=== PATIENT | male | born 1960 | race Caucasian/White ===

== ENCOUNTER → 2018-10-22 22:15 | Outpatient (CLI) | payer OTHER, SELFPAY ==
[2018-10-22 17:38] VITALS: BMI 37.0
[2018-10-22 22:34] LABS: Absolute Lymphocyte Count 2.35 X10^3/ul (0.83-4.51); Absolute Neutrophil Count 4.9 X10^3/uL (2.0-7.7); Basophil# 0.02 X10^3/uL; Basophil% 0.3 % (0-1); Eosinophil# 0.22 X10^3/uL; Eosinophils% 2.8 % (0-5); Hematocrit 44.7 % (40-54); Hemoglobin 15.2 g/dl (13.0-16.5); Lymphocyte # 2.35 X10^3/ul (4.0); Lymphocyte % 29.6 % (19-41); Mean Corpuscular Hgb 29.7 pg (27.0-32.0); Mean Corpuscular Volume 87.5 fL (80-94); Mean Platelet Vol. 9.6 fl (6.2-12.0); Monocyte# 0.46 X10^3/uL; Monocyte% 5.8 % (0-10); Neutrophil # 4.88 X10^3/uL (2.7-7.7); Neutrophil % 61.2 % (47-70); Platelet Count 222 K/mm3 (150-450); RBC Distribution Width CV 12.4 % (11.6-14.6); RBC Distribution Width SD 39.7 fl (35.1-43.9); Red Blood Count 5.11 M/mm3 (4.6-6.2)
[2018-10-22 22:35] LABS: POSITIVE COUNT NO; POSITIVE DIFFERENTIAL NO; POSITIVE MORPHOLOGY NO
[2018-10-22 22:55] LABS: AST(SGOT) 28 U/L (15-37); Alanine Aminotransfer ALT/SGPT 49 U/L (16-61); Albumin, Serum 3.9 g/dL (3.2-5.0); Alkaline Phosphatase 87 U/L (45-117); Anion Gap 8 (5-15); BUN 17 mg/dL (7-18); BUN/Creat Ratio 16.5 RATIO (10-20); Calcium,Total 8.3 mg/dL (8.5-10.1); Chloride 106 mmol/L (98-107); Cholesterol 176 mg/dL (200); Creatinine, Serum 1.03 mg/dL (0.70-1.30); EST Glomerular Filtration Rate 79 mL/min (>60); Est Glom Filt Rate - Afr Amer 96 mL/min (>60); Globulin 3.8 g/dL (2.2-4.2); Glucose 111 mg/dL (74-106); High Density Lipoprotein 43 mg/dL; Protein, Total 7.7 g/dL (6.4-8.2); Sodium Level 137 mmol/L (136-145); Triglycerides 262 mg/dL; Very Low Density Lipoprotein 52 mg/dL (5-40)
== END ==
PROVIDERS: Referring Provider Nurse Practitioner; Visit Provider Nurse Practitioner
DX: I10 Essential (primary) hypertension (principal); I49.9 Cardiac arrhythmia, unspecified; R73.9 Hyperglycemia, unspecified
CPT/HCPCS: 80053; 80061; 84443; 85025

== ENCOUNTER → 2018-11-18 06:58 | Outpatient (CLI) | payer SELFPAY ==
[2018-10-30 08:48] VITALS: BMI 35.2
[2018-11-13 16:49] VITALS: BMI 35.0
--- NOTE | 2018-11-18 07:13 | ECHOCS_ITS ---
Reason For Study: Arrhythmia Procedure This was a 2D Doppler, Color Flow transthoracic echocardiogram. Contrast injection was performed. Exam performed in department. Left Ventricle Normal LV size. Left ventricular systolic function is normal. The estimated ejection fraction is 60 %. Stage 1 diastolic dysfunction. No regional wall motion abnormalities noted. Right Ventricle Normal RV size. Normal systolic function. Atria Normal left atrium. Normal right atrium. Mitral Valve Normal mitral valve. Tricuspid Valve Normal tricuspid valve. Mild (1+) tricuspid valve insufficiency. Pulmonary artery systolic pressure is 26 mmHg. Aortic Valve Trisinus/trileaflet aortic valve. Pulmonic Valve Normal pulmonic valve. Great Vessels Normal aortic root. The pulmonary artery is normal size. Normal inferior vena cava. Pericardium/Pleural No pericardial effusion. Medication Definity0.3ml given slow IV push to enhance endocardial definition. MMode/2D Measurements & Calculations LVIDd: 4.7 cm IVSd: 1.2 cm Ao root diam: 3.9 cm LVIDs: 3.1 cm LVPWd: 1.1 cm RVDd: 4.9 cm FS: 33.1 % LAV(MOD-bp): 64.0 ml LVAd ap4: 34.9 cm2 SV(MOD-sp4): 76.8 ml LAV(MOD-bp) Indexed: 25.3 ml/m2 EDV(MOD-sp4): 123.4 ml LAV(MOD-sp2): 68.4 ml EDV(sp4-el): 128.7 ml LAV(MOD-sp4): 59.9 ml LVAs ap4: 19.8 cm2 ESV(MOD-sp4): 46.6 ml ESV(sp4-el): 45.7 ml EF(MOD-sp4): 62.2 % EF(sp4-el): 64.5 % SV(sp4-el): 83.0 ml LA A4 area: 21.0 cm2 LA dimension(2D): 4.9 cm RA A4 area: 14.8 cm2 Doppler Measurements & Calculations MV E max ludwin: 66.6 cm/sec Lat Peak E' Ludwin: 11.4 cm/sec Med Peak E' Ludwin: 7.4 cm/sec MV A max ludwin: 77.2 cm/sec E/E' lat: 5.9 E/E' med: 9.0 MV E/A: 0.86 Ao V2 max: 133.6 cm/sec LV V1 max: 119.7 cm/sec PA V2 max: 115.5 cm/sec Ao max P.1 mmHg LV V1 max P.7 mmHg Ao V2 mean: 100.3 cm/sec Ao mean P.3 mmHg Ao V2 VTI: 26.1 cm TR max ludwin: 239.3 cm/sec TR max P.9 mmHg Interpretation Summary Normal LV size. Left ventricular systolic function is normal. The estimated ejection fraction is 60 %. Stage 1 diastolic dysfunction. Pulmonary artery systolic pressure is 26 mmHg. Contrast injection was performed. Ordering Physician: Benji Miller Referring Physician: Pamela Diego Performed By: Kelly Sims, DOMINGUEZ, RVT
--- NOTE | 2018-11-18 19:03 | STRESSREP_ITS ---
Stress Test Report Exercise myocardial perfusion stress test. 55-year-old male with a history of coronary artery disease. Medications lisinopril. Stress protocol: Resting EKG demonstrates normal sinus rhythm with a rate of 55 bpm right bundle branch block is noted. Resting blood pressures 148/88 mmHg. Patient exercised according to regular Felix protocol for total duration of 6 minutes completing stage III of the Felix protocol the maximum heart rate attained was 150 bpm which was 92% of maximum predicted heart rate the maximum workload was 7 metab olic equivalents. Patient maintained sinus rhythm throughout the recording. At rest there were no ST or T wave changes no suggest ischemia peak exercise upsloping ST changes only no noted with number the criteria for ischemia. The resting blood pressure 148/88 with a peak blood pressure of 230/90 mmHg. Rate pressure product was 34,000. Myocardial perfusion protocol. 14.7 mCi of technetium 99m sestamibi was injected at rest. The patient exercised according to regular Felix protocol for 6 minutes at peak exercise 44.9 mCi of technetium 99m sestamibi was injected stress images were obtained stress and rest images are reconstructed in comparing the short axis vertical and horizontal long axis. Gated images were obtained per Perfusion SPECT analysis: Review of the stress images demonstrate normal uptake of tracer noted in all areas of the myocardium. The resting images similarly demonstrate normal uptake of tracer noted in all areas of the myocardium. No areas of reversibility are noted suggest ischemia no previous infarct is noted. Gated SPECT analysis: The gated ejection fraction is noted to be 69%. Conclusion: Normal exercise myocardial perfusion stress test at a moderate workload. Preserved ejection fraction
== END ==
PROVIDERS: Family Provider Nurse Practitioner; PCP Nurse Practitioner; Referring Provider Internal Medicine Cardiovascular Disease; Visit Provider Internal Medicine Cardiovascular Disease
DX: I45.10 Unspecified right bundle-branch block (principal); I25.10 Atherosclerotic heart disease of native coronary artery without angina pectoris; I10 Essential (primary) hypertension
CPT/HCPCS: 78452; 93017; 93306; A9500; Q9957; A4216; C8929

== ENCOUNTER → 2022-05-22 | Outpatient (CLI) | payer SELFPAY ==
[2022-05-22 15:24] LABS: Hematocrit 42.9 % (40-54); Hemoglobin 15.1 g/dL (13.0-16.5); Mean Corp Hgb Conc 35.2 g/dL (32-36); Mean Corpuscular Hgb 30.8 pg (27.0-32.0); Mean Corpuscular Volume 87.4 fL (80-94); Mean Platelet Vol. 9.9 fl (6.2-12.0); Platelet Count 245 K/mm3 (150-450); RBC Distribution Width CV 11.9 % (11.6-14.6); RBC Distribution Width SD 38.1 fl (35.1-43.9); Red Blood Count 4.91 M/mm3 (4.6-6.2); White Blood Count 10.2 K/mm3 (4.4-11.0)
[2022-05-22 15:34] LABS: International Normalized Ratio 1.4; Prothrombin Time (Protime)PT. 16.8 SECONDS (11.7-14.9)
[2022-05-22 16:28] LABS: ALB/GLOB Ratio 0.9 RATIO (0.9-2.4); AST(SGOT) 37 U/L (15-37); Alanine Aminotransfer ALT/SGPT 69 U/L (16-61); Albumin, Serum 3.6 g/dL (3.2-5.0); Alkaline Phosphatase 93 U/L (45-117); Anion Gap 9 (5-15); BUN 20 mg/dL (7-18); BUN/Creat Ratio 16.4 RATIO (10-20); Calcium,Total 8.7 mg/dL (8.5-10.1); Chloride 108 mmol/L (98-107); Creatinine, Serum 1.22 mg/dL (0.70-1.30); EST Glomerular Filtration Rate 64 mL/min (>60); Est Glom Filt Rate - Afr Amer 78 mL/min (>60); Globulin 3.9 g/dL (2.2-4.2); Glucose 202 mg/dL (74-106); Potassium 3.8 mmol/L (3.5-5.1); Protein, Total 7.5 g/dL (6.4-8.2); Sodium Level 141 mmol/L (136-145); Thyroid Stim Hormone (TSH) 1.58 uIU/mL (0.358-3.74)
== END | disposition home or self-care (01) ==
PROVIDERS: PCP Nurse Practitioner; Referring Provider Physician Assistant Medical; Visit Provider Physician Assistant Medical
DX: I10 Essential (primary) hypertension (principal); I48.0 Paroxysmal atrial fibrillation
CPT/HCPCS: 36415; 80053; 84443; 85027; 85610

== ENCOUNTER → 2022-06-01 | Outpatient (CLI) | payer SELFPAY ==
[2022-06-01 16:26] LABS: International Normalized Ratio 1.7
== END | disposition home or self-care (01) ==
LOC: LAB 15:31
PROVIDERS: PCP Nurse Practitioner; Visit Provider Internal Medicine Cardiovascular Disease
DX: I48.0 Paroxysmal atrial fibrillation (principal); Z79.01 Long term (current) use of anticoagulants
CPT/HCPCS: 36415; 85610

== ENCOUNTER 2022-06-22 15:27 | Outpatient (RCR) | payer SELFPAY ==
[2022-06-08 11:24] LABS: International Normalized Ratio 1.9; Prothrombin Time (Protime)PT. 21.4 SECONDS (11.7-14.9)
[2022-06-15 12:39] LABS: International Normalized Ratio 1.7; Prothrombin Time (Protime)PT. 19.7 SECONDS (11.7-14.9)
[2022-06-22 16:19] LABS: International Normalized Ratio 1.9; Prothrombin Time (Protime)PT. 21.2 SECONDS (11.7-14.9)
== END 2022-06-22 18:00 | disposition home or self-care (01) ==
LOC: LAB 15:27
PROVIDERS: PCP Nurse Practitioner; Referring Provider Internal Medicine Cardiovascular Disease; Visit Provider Internal Medicine Cardiovascular Disease
DX: I48.0 Paroxysmal atrial fibrillation (principal); Z79.01 Long term (current) use of anticoagulants
CPT/HCPCS: 36415; 85610

== ENCOUNTER 2022-07-13 11:40 | Outpatient (RCR) | payer SELFPAY ==
[2022-06-29 14:43] LABS: International Normalized Ratio 2.4; Prothrombin Time (Protime)PT. 25.6 SECONDS (11.7-14.9)
[2022-07-13 12:00] LABS: Prothrombin Time (Protime)PT. 22.7 SECONDS (11.7-14.9)
== END 2022-07-26 18:00 | disposition home or self-care (01) ==
LOC: LAB 11:40
PROVIDERS: PCP Nurse Practitioner; Referring Provider Internal Medicine Cardiovascular Disease; Visit Provider Internal Medicine Cardiovascular Disease
DX: I48.0 Paroxysmal atrial fibrillation (principal); Z79.01 Long term (current) use of anticoagulants
CPT/HCPCS: 36415; 85610

== ENCOUNTER 2022-08-17 09:17 | Outpatient (RCR) | payer SELFPAY ==
[2022-08-03 09:46] LABS: International Normalized Ratio 1.8; Prothrombin Time (Protime)PT. 20.6 SECONDS (11.7-14.9)
[2022-08-17 10:39] LABS: International Normalized Ratio 2.2; Prothrombin Time (Protime)PT. 24.4 SECONDS (11.7-14.9)
== END 2022-08-17 18:00 | disposition home or self-care (01) ==
LOC: LAB 09:17
PROVIDERS: PCP Nurse Practitioner; Referring Provider Internal Medicine Cardiovascular Disease; Visit Provider Internal Medicine Cardiovascular Disease
DX: I48.0 Paroxysmal atrial fibrillation (principal); Z79.01 Long term (current) use of anticoagulants
CPT/HCPCS: 36415; 85610

== ENCOUNTER → 2022-08-25 | Outpatient (CLI) | payer SELFPAY ==
--- NOTE | 2022-08-25 12:41 | CT_ITS ---
STUDY: CARDIAC CALCIUM SCORING - CT CHEST REASON FOR EXAM: Male, 62 years old. CAD. OVER READ ONLY. 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 Individualized dose optimization techniques were used for this CT. COMPARISON: None. FINDINGS: Included portions of the lungs are clear. There are benign mediastinal reactive lymph nodes. Aorta and pulmonary artery are normal caliber. Esophagus is normal. There are degenerative changes in the thoracic spine. Liver is fatty infiltrated. CT/Limited Chest CT Cardiac Only IMPRESSION: 1. Unremarkable chest. 2. Hepatic steatosis. Please go to: [email or web address] , for a description of the calculator. Electronically Signed: Renetta Osorio MD at 14:04 EST ,
[2022-08-25 13:15] VITALS: BP 156/58; PULSE 63; RESP 16; TEMP 37; O2SAT 97; BMI 36.2
--- NOTE | 2022-09-03 14:46 | CA.SCORE ---
Calcium Scoring Date of Study:: 08/25/22 Indications Indications: Chest pain Coronary Calcium Scoring: High-resolution Computed Tomographic imaging of the chest was performed on [08/25/22 ], with particular attention paid to the coronary arteries. Images from the examination were analyzed for the presence and extent of coronary artery calcification , using coronary calcium quantification software. The patient tolerated the procedure well and there were no complications. The results of the coronary calcification analysis are provided below. Findings Coronary Artery Left Main (LM): 31 Left Anterior Descending (LAD): 1 Left Circumflex (LCX): 0 Right Coronary Artery (RCA): 79 Total Agatston Score: 111 Percentile Rankin% to 50% Calcium Scoring Interpretation: 0 No identifiable atherosclerotic plaque. Very low cardiovascular disease risk. <5% chance of presence coronary artery disease A Negative Examination 1-10 Minimal Plaque burden. Significant coronary artery disease very unlikely. 11-100 Mild plaque burden. Likely mild or minimal coronary atherosclerosis. 101-400 Moderate plaque burden Moderate non-obstructive coronary artery disease highly likely. Over 400 Extensive plaque burden. High likelihood of at least one significant coronary stenosis (>50% diameter) Calcium Score: 101 - 400 Moderate non-obstructive coronary artery disease highly like
== END | disposition home or self-care (01) ==
PROVIDERS: PCP Nurse Practitioner; Referring Provider Internal Medicine Cardiovascular Disease; Visit Provider Internal Medicine Cardiovascular Disease
DX: I25.10 Atherosclerotic heart disease of native coronary artery without angina pectoris (principal); K76.0 Fatty (change of) liver, not elsewhere classified; M47.814 Spondylosis without myelopathy or radiculopathy, thoracic region; I45.10 Unspecified right bundle-branch block; E78.1 Pure hyperglyceridemia; I45.2 Bifascicular block
CPT/HCPCS: 75571; 76380

== ENCOUNTER 2022-09-21 08:43 | Outpatient (RCR) | payer SELFPAY ==
[2022-08-31 17:44] LABS: International Normalized Ratio 2.4; Prothrombin Time (Protime)PT. 26.2 SECONDS (11.7-14.9)
[2022-09-21 09:43] LABS: International Normalized Ratio 2.7; Prothrombin Time (Protime)PT. 28.6 SECONDS (11.7-14.9)
== END 2022-09-21 10:00 | disposition home or self-care (01) ==
LOC: LAB 08:43
PROVIDERS: PCP Nurse Practitioner; Referring Provider Internal Medicine Cardiovascular Disease; Visit Provider Internal Medicine Cardiovascular Disease
DX: I48.0 Paroxysmal atrial fibrillation (principal); Z79.01 Long term (current) use of anticoagulants
CPT/HCPCS: 36415; 85610

== ENCOUNTER 2022-10-19 14:13 | Outpatient (RCR) | payer SELFPAY ==
[2022-10-19 15:16] LABS: International Normalized Ratio 2.5
== END 2022-10-19 18:00 | disposition home or self-care (01) ==
LOC: LAB 14:13
PROVIDERS: PCP Nurse Practitioner; Referring Provider Internal Medicine Cardiovascular Disease; Visit Provider Internal Medicine Cardiovascular Disease
DX: I48.0 Paroxysmal atrial fibrillation (principal); Z79.01 Long term (current) use of anticoagulants
CPT/HCPCS: 36415; 85610

== ENCOUNTER 2022-11-17 12:41 | Outpatient (RCR) | payer SELFPAY ==
[2022-11-17 13:14] LABS: International Normalized Ratio 2.5; Prothrombin Time (Protime)PT. 26.3 SECONDS (11.7-14.9)
== END 2022-11-24 23:06 | disposition home or self-care (01) ==
LOC: LAB 12:41
PROVIDERS: PCP Nurse Practitioner; Referring Provider Internal Medicine Cardiovascular Disease; Visit Provider Internal Medicine Cardiovascular Disease
DX: I48.0 Paroxysmal atrial fibrillation (principal); Z79.01 Long term (current) use of anticoagulants
CPT/HCPCS: 36415; 85610

== ENCOUNTER 2022-12-21 08:56 | Outpatient (RCR) | payer SELFPAY ==
[2022-12-21 09:33] LABS: International Normalized Ratio 2.9; Prothrombin Time (Protime)PT. 29.7 SECONDS (11.7-14.9)
== END 2022-12-24 01:34 | disposition home or self-care (01) ==
LOC: LAB 08:56
PROVIDERS: PCP Nurse Practitioner; Referring Provider Internal Medicine Cardiovascular Disease; Visit Provider Internal Medicine Cardiovascular Disease
DX: I48.0 Paroxysmal atrial fibrillation (principal); Z79.01 Long term (current) use of anticoagulants
CPT/HCPCS: 36415; 85610

== ENCOUNTER 2023-01-18 12:30 | Outpatient (RCR) | payer SELFPAY ==
[2023-01-18 13:45] LABS: International Normalized Ratio 2.6; Prothrombin Time (Protime)PT. 27.8 SECONDS (11.7-14.9)
== END 2023-01-24 18:00 | disposition home or self-care (01) ==
LOC: LAB 12:30
PROVIDERS: PCP Nurse Practitioner; Referring Provider Internal Medicine Cardiovascular Disease; Visit Provider Internal Medicine Cardiovascular Disease
DX: I48.0 Paroxysmal atrial fibrillation (principal); Z79.01 Long term (current) use of anticoagulants
CPT/HCPCS: 36415; 85610

== ENCOUNTER 2023-02-16 10:07 | Outpatient (RCR) | payer SELFPAY ==
[2023-02-16 10:33] LABS: Prothrombin Time (Protime)PT. 31.6 SECONDS (11.7-14.9)
[2023-02-16 10:48] LABS: Hemoglobin A1c 7.7 % (3.8-5.6)
[2023-02-16 10:57] LABS: AST(SGOT) 28 U/L (15-37); Alanine Aminotransfer ALT/SGPT 45 U/L (16-61); Albumin, Serum 3.5 g/dL (3.2-5.0); Alkaline Phosphatase 110 U/L (45-117); Bilirubin, Direct 0.11 mg/dL (0.00-0.30); Globulin 3.6 g/dL (2.2-4.2); Protein, Total 7.1 g/dL (6.4-8.2)
== END 2023-02-16 18:00 | disposition home or self-care (01) ==
LOC: LAB 10:07
PROVIDERS: Physician Assistant Medical; PCP Nurse Practitioner; Referring Provider Internal Medicine Cardiovascular Disease; Visit Provider Internal Medicine Cardiovascular Disease
DX: I48.0 Paroxysmal atrial fibrillation (principal); Z79.01 Long term (current) use of anticoagulants
CPT/HCPCS: 36415; 80076; 83036; 85610

== ENCOUNTER 2023-03-01 22:10 | Observation (INO) | payer OTHER, SELFPAY ==
[2023-03-01 22:11] VITALS: BP 199/83; PULSE 149; PULSE 71; RESP 18; TEMP 36.6; O2SAT 97; BMI 37.5
--- NOTE | 2023-03-01 22:43 | EKG12_ITS ---
Test Reason : AM EKG Blood Pressure : / mmHG Vent. Rate : 096 BPM Atrial Rate : 089 BPM P-R Int : 000 ms QRS Dur : 132 ms QT Int : 340 ms P-R-T Axes : 000 -58 012 degrees QTc Int : 429 ms Atrial fibrillation Left axis deviation Right bundle branch block Abnormal ECG When compared with ECG of 01-MAR-2023 22:20, MANUAL COMPARISON REQUIRED, DATA IS UNCONFIRMED Confirmed by SARAI HAMILTON, MAYCOL ([id number]), senior technical editor LUIS SAN ([id number]) on 03/02/2023 12:56:39 PM Referred By: Confirmed By:MAYCOL MOON MD
[2023-03-01 22:52] LABS: Absolute Lymphocyte Count 2.57 X10^3/uL (0.83-4.51); Absolute Neutrophil Count 4.4 X10^3/uL (2.0-7.7); Basophil# 0.05 X10^3/uL; Basophil% 0.6 % (0-1); Eosinophil# 0.21 X10^3/uL; Eosinophils% 2.7 % (0-5); Hematocrit 44.2 % (40-54); Hemoglobin 15.4 g/dL (13.0-16.5); Lymphocyte # 2.57 X10^3/ul (0.83-4.51); Lymphocyte % 32.7 % (19-41); Mean Corp Hgb Conc 34.8 g/dL (32-36); Mean Corpuscular Hgb 30.8 pg (27.0-32.0); Mean Corpuscular Volume 88.4 fL (80-94); Mean Platelet Vol. 9.5 fl (6.2-12.0); Monocyte# 0.57 X10^3/uL; Monocyte% 7.3 % (0-10); NRBC Flagged by Analyzer 0 % (0-5); Neutrophil # 4.42 X10^3/uL (2.7-7.7); Neutrophil % 56.3 % (47-70); Platelet Count 215 K/mm3 (150-450); RBC Distribution Width SD 38.6 fl (35.1-43.9); White Blood Count 7.9 K/mm3 (4.4-11.0)
[2023-03-01] MEDS: 0.9% Normal Saline 1,000 ML 999 ML IV (22:55)
--- NOTE | 2023-03-01 22:55 | RAD_ITS ---
INDICATION: chest pain EXAMINATION/TECHNIQUE: X-RAY - XR Chest 1 View AP portable. 10:52 PM COMPARISON: FINDINGS: LINES/DEVICES: None. LUNGS: No consolidation. No pneumothorax. MEDIASTINUM: Aorta is atherosclerotic. CARDIAC SILHOUETTE: Not enlarged. BONES AND SOFT TISSUES: No acute abnormalities. RAD/Chest 1 View (Portable) IMPRESSION: No evidence of active intrathoracic disease. Electronically Signed: Paulette Andrews MD at 23:16 EDT ,
[2023-03-01 22:57] VITALS: BP 145/91; PULSE 120; RESP 17; O2SAT 96
[2023-03-01 23:02] VITALS: O2SAT 95
[2023-03-01 23:03] LABS: International Normalized Ratio 2.9; Prothrombin Time (Protime)PT. 30.3 SECONDS (11.7-14.9)
[2023-03-01 23:10] LABS: Anion Gap 8 (5-15); BUN 20 mg/dL (7-18); BUN/Creat Ratio 13.2 RATIO (10-20); Calcium,Total 8.9 mg/dL (8.5-10.1); Chloride 104 mmol/L (98-107); Creatinine, Serum 1.52 mg/dL (0.70-1.30); EST Glomerular Filtration Rate 50 mL/min (>60); Est Glom Filt Rate - Afr Amer 60 mL/min (>60); Glucose 315 mg/dL (74-106); Potassium 3.7 mmol/L (3.5-5.1); Sodium Level 137 mmol/L (136-145); Troponin-I HS (w/2H Reflex) 9 pg/mL (3.0-78.0)
[2023-03-01 23:11] LABS: BNP,B-Type NATRIURETIC PEPTIDE 30.4 pg/mL (0-100)
--- NOTE | 2023-03-01 23:18 | EDS_ITS ---
HPI History of Present Illness Chief Complaint: Palpitations Narrative Narrative: 62-year-old male with history of atrial fibrillation which is paroxysmal on flecainide and metoprolol presenting with palpitations. He states that about 9:00 he noticed the palpitations started. He states he was trying to cover his pool and noticed he started having chest pain which she describes as tightness across his chest with radiation to the left arm. This lasted about 15 to 20 minutes. Patient still currently feels palpitations. Patient states that typically he will be able to sit and breathe through fast heart rates. He denies fever or chills. Has cough. He states other than the A-fib he does not have any cardiac history. He notes that he recently had an elevated A1c which was in the 7.5 range. He also has history of hyperlipidemia. [facility] Medical History Bifascicular block Cardiac arrhythmia Dysuria Essential (primary) hypertension GERD (gastroesophageal reflux disease) Hypertriglyceridemia retirement 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 Malignant hypertension Nicotine dependence in remission Obesity PAF (paroxysmal atrial fibrillation) Pain in right buttock Rapid palpitations Right bundle branch block (RBBB) Snoring Traumatic ecchymosis of buttock Home Medications metoprolol succinate 25 mg tablet,extended release 24 hr 25 mg PO DAILY #90 tabs 05/16/22 [Rx Last Taken Unknown] warfarin 5 mg tablet See Rx Instructions .Route .COMPLEX #90 tabs 01/23/23 [Rx Last Taken Unknown] flecainide 100 mg tablet 100 mg PO Q12H #180 tabs 02/05/23 [Rx Last Taken Unknown] lisinopril 20 mg tablet 20 mg PO DAILY #90 tabs 02/05/23 [Rx Last Taken Unknown] Allergy/AdvReac Type Severity Reaction Status Date / Time Penicillins [PCN] Allergy Rash Verified 03/01/23 22:13 Family History Mother Cancer lymphoma Father Hypertension Brother Diabetes Sister Irregular heart beat RFA Other Lymphoma Surgical History Effusion, right knee H/O shoulder surgery Social History Smoking Status: Former smoker quit date: 08/19/17 pack-years: 35 alcohol intake: current alcohol intake frequency: holidays/special occasions only substance use type: does not use caffeine: Yes Type: coffee Number of servings: 3 ROS ROS ED Constitutional Constitutional ED: Denies chills, fever(s) or sweats Eyes Eyes: Denies blurry vision or change in vision ENT ENT ED: Denies ear pain or sore throat Cardiovascular Cardiovascular: Reports chest pain, palpitations and racing heartbeat Respiratory/Chest Respiratory/Chest: Denies cough, dyspnea or sputum Gastrointestinal Gastrointestinal: Denies abdominal pain, constipation, diarrhea, nausea or vomiting Genitourinary Genitourinary ED: Denies dysuria, hematuria or urinary frequency Musculoskeletal Musculoskeletal: Denies arthralgias, myalgias or neck pain Integumentary Denies abscess, Abrasions or rash Neurologic Neurologic: Denies headache(s), paresthesias or weakness Psychiatric Psychiatric: Denies anxiety, depression, suicidal ideation or suicidal thoughts Endocrine Endocrinology: Denies polydipsia or polyuria EXAM Physical Exam Const Vital Signs: 03/01/23 22:11 03/01/23 22:11 03/01/23 22:57 Temperature 97.9 F Temperature Source Temporal Pulse Rate 71 149 H 120 H Respiratory Rate 18 17 Blood Pressure 199/83 H 145/91 H Blood Pressure Mean 121 109 Pulse Ox 97 96 Oxygen Delivery Method Room Air Room Air 03/01/23 23:02 03/01/23 23:25 03/02/23 00:04 Temperature Temperature Source Pulse Rate 115 H 113 H Respiratory Rate 20 H 14 Blood Pressure 162/93 H 122/73 H Blood Pressure Mean 116 89 Pulse Ox 95 96 97 Oxygen Delivery Method Room Air Room Air 03/02/23 02:13 Temperature Temperature Source Pulse Rate 113 H Respiratory Rate 18 Blood Pressure 132/70 H Blood Pressure Mean 90 Pulse Ox 97 Oxygen Delivery Method Room Air Positive well nourished General Appearance ED: NAD; Negative for pallor HEENT Reports moist mucous membranes normocephalic and atraumatic Eyes PERRL and EOMs intact bilaterally Resp normal respiratory effort and clear to auscultation bilaterally Cardio Rate: tachycardic Rhythm: abnormal rhythm irregularly irregular GI normal to inspection, nondistended, normoactive bowel sounds Extremity normal to inspection Neuro CN's II-XII intact bilaterally Sensorium / Orientation: awake and alert Motor Exam: strength 5/5 throughout Psych mental status grossly normal Skin no rashes or lesions noted General Skin Exam: Negative for jaundice or pallor MDM MDM MDM Narrative Medical decision making narrative: 62-year-old male with history of paroxysmal A-fib on Coumadin and flecainide. He states he does not have a history of CAD and has had no TX or cardiac stents done. He does state that he felt his heart rate racing and then he developed some chest pain which radiated to the left arm. Has not had this before. EKG was obtained which shows A-fib with rapid ventricular response at 137 bpm. No evidence of ischemia. Chest x-ray my interpretation shows no acute cardiopulmonary process. The radiologist services and agrees. BC is unremarkable. BMP shows elevated creatinine 1.52 which is new for him. Patient was given a liter of IV fluids and 25 of Cardizem to slow down his heart rate. Initial troponin was 9. BNP 30.4. Patient's INR is 2.9 so a low suspicion for PE. Delta troponin came up at 53 and for this reason I think the patient warrants admission given his risk factors and his chest pain. In addition to this the patient was given a second dose of 50 mg of Cardizem because his heart rate was still fluctuating between 100-130 bpm. Patient started on Cardizem drip. Will discuss with the hospitalist. Impression: 1. A-fib with RVR 2. Chest pain Lab Data Labs: Laboratory Results - last 24 hr 03/01/23 03/02/23 22:35 00:58 WBC 7.9 RBC 5.00 Hgb 15.4 Hct 44.2 MCV 88.4 MCH 30.8 MCHC 34.8 RDW Std Deviation 38.6 RDW Coeff of Alin 12.0 Plt Count 215 MPV 9.5 Immature Gran % (Auto) 0.400 Neut % (Auto) 56.3 Lymph % (Auto) 32.7 Mccreary % (Auto) 7.3 Eos % (Auto) 2.7 Baso % (Auto) 0.6 Absolute Neuts (auto) 4.4 Absolute Lymphs (auto) 2.57 Nucleated RBC % 0 PT 30.3 H INR 2.9 Sodium 137 Potassium 3.7 Chloride 104 Carbon Dioxide 25.0 Anion Gap 8 BUN 20 H Creatinine 1.52 H Estim Creat Clear Calc 61.00 Est GFR (MDRD) Af Amer 60 Est GFR (MDRD) Non-Af 50 L BUN/Creatinine Ratio 13.2 Glucose 315 H Calcium 8.9 Troponin I High Sens 9 53 B-Natriuretic Peptide 30.4 Radiography Diagnostic Testing: Clinical Impression(s) from Imaging Studies Chest X-Ray 03/01/23 22:55 IMPRESSION: No evidence of active intrathoracic disease. Electronically Signed: Paulette Andrews MD at 23:16 EDT , Discharge Plan Triage Chief Complaint: Palpitations ED Provider: Stephen Mireles Dx/Rx/DC Orders Primary Care Provider: Pamela Diego NP
[2023-03-01] MEDS: dilTIAZem 25 MG/5 ML Vial IV BOLUS (23:20)
[2023-03-01 23:25] VITALS: BP 162/93; PULSE 115; RESP 20; O2SAT 96
[2023-03-02] VITALS (29 sets, daily range): BP systolic 107–158; BP diastolic 59–113; PULSE 70–125; RESP 13–28; TEMP 36.5–36.7; O2SAT 95–100; BMI 37.1
[2023-03-02 00:49] LABS: Reflex Troponin-HS? (from REC) Y
[2023-03-02] MEDS: dilTIAZem 25 MG/5 ML Vial 15 MG IV BOLUS (00:50)
[2023-03-02] MEDS: 0.9% Normal Saline 1,000 ML 999 ML IV (00:59)
[2023-03-02 01:23] LABS: Troponin-I HS 53 pg/mL (3.0-78.0)
--- NOTE | 2023-03-02 02:06 | PCM.HP.STD ---
HPI - General General Date of Admission: 03/02/23 Date of Service: 03/02/23 Chief Complaint: Palpitation HPI Narrative NICOLA HUIZAR, is a 62 M with a significant history of atrial fibrillation who presents emergency department with palpitations that started on the same day of presentation. Associated with his symptoms is chest pain; epigastric pain. Further he had pain radiating to his left arm. Associated with his symptoms is shortness of breath. During this time he tried to go and work back on a pool at his home when he had some relief. However that brought his pain back on. 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 Malignant hypertension Nicotine dependence in remission Obesity PAF (paroxysmal atrial fibrillation) Pain in right buttock Rapid palpitations Right bundle branch block (RBBB) Snoring Traumatic ecchymosis of buttock Home Medications metoprolol succinate 25 mg tablet,extended release 24 hr 25 mg PO DAILY #90 tabs 05/16/22 [Rx Last Taken Unknown] warfarin 5 mg tablet See Rx Instructions .Route .COMPLEX #90 tabs 01/23/23 [Rx Last Taken Unknown] flecainide 100 mg tablet 100 mg PO Q12H #180 tabs 02/05/23 [Rx Last Taken Unknown] lisinopril 20 mg tablet 20 mg PO DAILY #90 tabs 02/05/23 [Rx Last Taken Unknown] Allergy/AdvReac Type Severity Reaction Status Date / Time Penicillins [PCN] Allergy Rash Verified 03/01/23 22:13 Family History Mother Cancer lymphoma Father Hypertension Brother Diabetes Sister Irregular heart beat RFA Other Lymphoma Surgical History Effusion, right knee H/O shoulder surgery Social History Smoking Status: Former smoker quit date: 08/19/17 pack-years: 35 alcohol intake: current alcohol intake frequency: holidays/special occasions only substance use type: does not use caffeine: Yes Type: coffee Number of servings: 3 ROS ROS Narrative Pertinent positives and pertinent negatives as noted in HPI. All other systems were reviewed and are negative Vital Signs Vital Signs Vital Signs: 03/01/23 22:11 03/01/23 22:11 03/01/23 22:57 Temperature 97.9 F Temperature Source Temporal Pulse Rate 71 149 H 120 H Respiratory Rate 18 17 Blood Pressure 199/83 H 145/91 H Blood Pressure Mean 121 109 Pulse Ox 97 96 Oxygen Delivery Method Room Air Room Air 03/01/23 23:02 03/01/23 23:25 03/02/23 00:04 Temperature Temperature Source Pulse Rate 115 H 113 H Respiratory Rate 20 H 14 Blood Pressure 162/93 H 122/73 H Blood Pressure Mean 116 89 Pulse Ox 95 96 97 Oxygen Delivery Method Room Air Room Air Weight Weight: 136.1 kg Body Mass Index (BMI) 37.5 Physical Exam Narrative Physical exam: General: Well-nourished, well-developed. Head: Normocephalic, atraumatic, no tenderness Eyes: Vision is grossly intact. EOMI ENT, no trauma, moist mucous membranes, no rhinorrhea Neck: Nontender, No thyromegaly. CVS: Irregularly irregular rate and rhythm. S1-S2 present. No murmur, gallop or rub. Respiratory : clear to auscultation bilaterally, chest wall nontender Abdomen: Soft, nontender, nondistended, normal bowel sounds, no masses : Deferred Back: Nontender, no CVA tenderness, no midline spinal tenderness, deformities, step-offs Extremities: Nontender full range of motion, no trauma Skin: Normal color, no trauma, abrasions Neuro: Alert, oriented, cranial nerves II through XII grossly intact. Psychiatry: Normal mood. Normal affect. Not depressed. Not anxious. Results Lab / Micro Data 03/01/23 22:35 03/01/23 22:35 Labs: Laboratory Results - last 24 hr 03/01/23 22:35: WBC 7.9, RBC 5.00, Hgb 15.4, Hct 44.2, MCV 88.4, MCH 30.8, MCHC 34.8, RDW Std Deviation 38.6, RDW Coeff of Alin 12.0, Plt Count 215, MPV 9.5, Immature Gran % (Auto) 0.400, Neut % (Auto) 56.3, Lymph % (Auto) 32.7, [place] % (Auto) 7.3, Eos % (Auto) 2.7, Baso % (Auto) 0.6, Absolute Neuts (auto) 4.4, Absolute Lymphs (auto) 2.57, Nucleated RBC % 0, PT 30.3 H, INR 2.9, Sodium 137, Potassium 3.7, Chloride 104, Carbon Dioxide 25.0, Anion Gap 8, BUN 20 H, Creatinine 1.52 H, Estim Creat Clear Calc 61.00, Est GFR (MDRD) Af Amer 60, Est GFR (MDRD) Non-Af 50 L, BUN/Creatinine Ratio 13.2, Glucose 315 H, Calcium 8.9, Troponin I High Sens 9, B-Natriuretic Peptide 30.4 03/02/23 00:58: Troponin I High Sens 53 Radiology Impression Chest X-Ray 03/01/23 22:55 IMPRESSION: No evidence of active intrathoracic disease. 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 Place on PCU on telemetry Initial high sensitivity troponin 9; repeat 53. It was trended to 37. Obtain echo On Coumadin and is therapeutic. Continue Coumadin. Trend INR. Flecainide and metoprolol continued. Received Cardizem bolus in the emergency department and was started on a drip. Cardizem drip continued. Potassium 3.7. Discussed with ED doctor to replace. Trend potassium. Check magnesium. Chest x-ray Recheck the labs in the a.m. including a lipid panel. Newly diagnosed diabetes mellitus A1c on 02/16/2023 was 7.7 Accu-Cheks requested scale insulin ordered. DVT prophylaxis: Not indicated as patient is therapeutic on home warfarin. Charges/Coding Visit Charges Inpatient E&M: 71239 Init Hosp L3
[2023-03-02] MEDS: Aspirin 81 MG TAB.CHEW 324 MG PO (02:17)
[2023-03-02] MEDS: Potassium Chloride Oral Tablet 20 MEQ 40 MEQ PO (02:39)
[2023-03-02 05:12] LABS: International Normalized Ratio 3.3; Prothrombin Time (Protime)PT. 34.3 SECONDS (11.7-14.9)
[2023-03-02 05:28] LABS: Troponin-I HS 37 pg/mL (3.0-78.0)
[2023-03-02 05:35] LABS: Phosphorus 3.1 mg/dL (2.5-4.9); Thyroid Stim Hormone (TSH) 2.58 uIU/mL (0.358-3.74)
[2023-03-02] MEDS: Insulin Lispro 100 UNIT/ML INSULN.PEN SC ×3 (06:47→16:14)
[2023-03-02 06:53] LABS: Bedside Glucose 174 mg/dL (74-106)
[2023-03-02] MEDS: Flecainide 100 MG Tablet PO (08:24)
[2023-03-02] MEDS: Metoprolol(XL)Succ 25 MG Tablet PO (08:24)
--- NOTE | 2023-03-02 10:00 | EKG12_ITS ---
Test Reason : AFIB Blood Pressure : / mmHG Vent. Rate : 137 BPM Atrial Rate : 000 BPM P-R Int : 000 ms QRS Dur : 126 ms QT Int : 296 ms P-R-T Axes : 000 -67 064 degrees QTc Int : 446 ms Atrial fibrillation with rapid ventricular response Right bundle branch block Left anterior fascicular block Bifascicular block Abnormal ECG Confirmed by SAMEER HAMILTON, PAT ([id number]), social media editor LUIS SAN ([id number]) on 03/05/2023 1:07:50 PM Referred By: MARY Confirmed By:BHAVIN ESTRELLA MD
[2023-03-02] MEDS: Metoprolol(XL)Succ 50 MG Tablet PO (11:44)
[2023-03-02 12:54] LABS: Bedside Glucose 228 mg/dL (74-106)
--- NOTE | 2023-03-02 14:08 | DCINST_ITS ---
Discharge Instructions Diet Discharge Diet: - (No concentrated sugar) Activity Discharge Activity: Return to Normal Activity Weight Bearing Status: Full weight bearing Follow Up Care Test Results: Test results from this visit will be discussed in further detail at your follow- up appointment, if applicable. Discharge Plan Admission Admit Date/Time: 03/02/23 02:23 Primary Reason for Your Visit: a-fib with RVR Attending Provider: Bogdan Haegn Primary Care Provider: Pamela Diego NP Consulting Providers: Juan J Brown Discharge Orders/Prescriptions Prescriptions: New metformin 500 mg tablet 500 mg PO BID Qty: 60 0RF Continued lisinopril 20 mg tablet 20 mg PO DAILY Qty: 90 3RF warfarin 5 mg tablet See Rx Instructions .ROUTE .COMPLEX Qty: 90 3RF Protocol: Dose Management Condition: Sunday Dose/Route: 7.5 mg Instruction: 1.5 x 5 mg tablets Condition: Sunday Dose/Route: 7.5 mg Instruction: 1.5 x 5 mg tablets Condition: Sunday Dose/Route: 7.5 mg Instruction: 1.5 x 5 mg tablets Condition: Sunday Dose/Route: 7.5 mg Instruction: 1.5 x 5 mg tablets Condition: Dose/Route: 7.5 mg Instruction: 1.5 x 5 mg tablets Condition: Sunday Dose/Route: 7.5 mg Instruction: 1.5 x 5 mg tablets Condition: Sunday Dose/Route: 7.5 mg Instruction: 1.5 x 5 mg tablets Protocol Text: Adjustment Start Date: Sunday02/16/23 INR Value: 3.0 INR Date: 02/16/23 Recheck Date: 03/16/23 Dose Instruction: take 1 tablet by mouth once daily Rx Instructions: take one and one half tablet (7.5mg) by mouth once daily Changed flecainide 100 mg tablet 150 mg PO Q12H Qty: 180 3RF metoprolol succinate 25 mg tablet extended release 24 hr 50 mg PO BIDCM Qty: 90 3RF Referrals / Follow Up: [facility] [Provider Group] - 03/09/23 2:30 pm Pamela Diego NP, [employer] [Primary Care Provider] - See Referral Note (10 days for diabetes follow-up) Disposition Disposition (needs filled in before D/C Order can be placed): Home, Self Care
--- NOTE | 2023-03-02 16:20 | NURSING ---
apple juice given.
[2023-03-02 16:38] LABS: Bedside Glucose 152 mg/dL (74-106)
--- NOTE | 2023-03-02 16:49 | PCM.DC.SUM ---
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 Paroxysmal atrial fibrillation with RVR #2 hypertension #3 type 2 diabetes-new diagnosis #4 Chronic use of anticoagulants secondary to atrial fibrillation #5 hypercoagulable state secondary to paroxysmal atrial fibrillation Medications at Discharge Home Medications warfarin 5 mg tablet See Rx Instructions .Route .COMPLEX #90 tabs 01/23/23 lisinopril 20 mg tablet 20 mg PO DAILY #90 tabs 02/05/23 flecainide 100 mg tablet 150 mg (1.5 x 100 mg) PO Q12H #180 tabs 03/02/23 metformin 500 mg tablet 500 mg PO BID #60 tabs 03/02/23 metoprolol succinate 25 mg tablet,extended release 24 hr 50 mg (2 x 25 mg) PO BIDCM #90 tabs 03/02/23 Hospital Course Operations None Procedures None Summary of Care Provided Minutes Spent on Discharge: 31 Hospital Course: This 62-year-old white male was seen in the emergency room at [facility] with complaints of palpitations. Patient also complained of chest discomfort with the palpitations which she described as a tightness across his chest with some radiation into his left arm, this lasted approximately 15 to 20 minutes. Patient had a history of atrial fibrillation in the past, he is on flecainide and metoprolol for this, patient also takes warfarin. EKG obtained in the emergency room showed the patient to be in atrial fib with a rate of approximately 138 bpm, CBC was unremarkable, INR was 2.9, creatinine was 1.52 and BUN was 20. Patient's troponin was unremarkable. Patient was given IV Cardizem and started on a Cardizem drip and transferred to PCU as an observation patient, his Cardizem drip was titrated off and his beta-brenda was increased, I had several discussions with him during the day along with his who was present in the room at the time my discussions. It was also noted that the patient's blood sugar was running high, he had recently had an A1c that was elevated at 7.5 as an outpatient. Patient's rate slowed with increasing of his beta-brenda, the Cardizem drip was able to be stopped, and the patient appears stable for discharge home with increased cardiac medications. I made the decision to place the patient on metformin at the time of his discharge and ask him to follow-up with his PCP regarding his diabetes. 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 I was instructed to tell the patient to follow-up in the steward/stewardess office in a week, I went over my plan to increase the patient's flecainide and metoprolol with the PA and she approved changing the patient's meds. On 03/02/2023, patient was seen and examined: On examination he appeared in good health and spirits. Vital signs as documented. Skin warm and dry and without overt rashes. Neck without JVD, neck was supple, trachea midline, thyroid was normal. Lungs clear bilaterally, normal air movement was noted. Heart exam notable for irregular rhythm, normal sounds and absence of murmurs, rubs or gallops. Abdomen unremarkable and without evidence of organomegaly, masses, or abdominal aortic enlargement. Bowel sounds are present, abdomen is not distended. Extremities nonedematous, no cyanosis was noted, no clubbing was noted. Neuro: Cranial nerves II through XII are grossly intact, no focal motor deficits were noted, sensation to light touch and pinprick intact, motor exam 5/5 throughout. Psych: Patient is alert and oriented x3, he does not appear anxious or depressed, he does not appear agitated. Patient appeared stable for discharge home on 03/02/2023. Weight / BMI Weight Weight: 134.8 kg Body Mass Index (BMI) 37.1 ABG / Lab / Microbiology Data 03/01/23 22:35 03/01/23 22:35 Laboratory: Laboratory Results - last 24 hr 03/01/23 22:35: WBC 7.9, RBC 5.00, Hgb 15.4, Hct 44.2, MCV 88.4, MCH 30.8, MCHC 34.8, RDW Std Deviation 38.6, RDW Coeff of Alin 12.0, Plt Count 215, MPV 9.5, Immature Gran % (Auto) 0.400, Neut % (Auto) 56.3, Lymph % (Auto) 32.7, [place] % (Auto) 7.3, Eos % (Auto) 2.7, Baso % (Auto) 0.6, Absolute Neuts (auto) 4.4, Absolute Lymphs (auto) 2.57, Nucleated RBC % 0, PT 30.3 H, INR 2.9, Sodium 137, Potassium 3.7, Chloride 104, Carbon Dioxide 25.0, Anion Gap 8, BUN 20 H, Creatinine 1.52 H, Estim Creat Clear Calc 61.00, Est GFR (MDRD) Af Amer 60, Est GFR (MDRD) Non-Af 50 L, BUN/Creatinine Ratio 13.2, Glucose 315 H, Calcium 8.9, Troponin I High Sens 9, B-Natriuretic Peptide 30.4 03/02/23 00:58: Magnesium 2.0, Troponin I High Sens 53 03/02/23 04:54: PT 34.3 H, INR 3.3, Phosphorus 3.1, Troponin I High Sens 37, TSH 2.58 03/02/23 06:31: POC Glucose 174 H 03/02/23 11:42: POC Glucose 228 H 03/02/23 16:12: POC Glucose 152 H Radiography Diagnostic Testing: Radiology Impression Chest X-Ray 03/01/23 22:55 IMPRESSION: No evidence of active intrathoracic disease. Electronically Signed: Paulette Andrews MD at 23:16 EDT , D/C Instructions Discharge Diet: - (No concentrated sugar) Weight Bearing Status: Full weight bearing Meaningful Use Info Meaningful Use Diagnoses (Choose all that apply): None applicable Discharge Plan Admission Admit Date/Time: 03/02/23 02:23 Primary Reason for Your Visit: a-fib with RVR Attending Provider: Bogdan Hagen Primary Care Provider: Pamela Diego NP Consulting Providers: Juan J Brown Discharge Orders/Prescriptions Prescriptions: New metformin 500 mg tablet 500 mg PO BID Qty: 60 0RF Continued lisinopril 20 mg tablet 20 mg PO DAILY Qty: 90 3RF warfarin 5 mg tablet See Rx Instructions .ROUTE .COMPLEX Qty: 90 3RF Protocol: Dose Management Condition: Sunday Dose/Route: 7.5 mg Instruction: 1.5 x 5 mg tablets Condition: Sunday Dose/Route: 7.5 mg Instruction: 1.5 x 5 mg tablets Condition: Sunday Dose/Route: 7.5 mg Instruction: 1.5 x 5 mg tablets Condition: Sunday Dose/Route: 7.5 mg Instruction: 1.5 x 5 mg tablets Condition: Dose/Route: 7.5 mg Instruction: 1.5 x 5 mg tablets Condition: Sunday Dose/Route: 7.5 mg Instruction: 1.5 x 5 mg tablets Condition: Sunday Dose/Route: 7.5 mg Instruction: 1.5 x 5 mg tablets Protocol Text: Adjustment Start Date: Sunday02/16/23 INR Value: 3.0 INR Date: 02/16/23 Recheck Date: 03/16/23 Dose Instruction: take 1 tablet by mouth once daily Rx Instructions: take one and one half tablet (7.5mg) by mouth once daily Changed flecainide 100 mg tablet 150 mg PO Q12H Qty: 180 3RF metoprolol succinate 25 mg tablet extended release 24 hr 50 mg PO BIDCM Qty: 90 3RF Referrals / Follow Up: [facility] [Provider Group] - 03/09/23 2:30 pm Pamela Diego NP, [facility] [Primary Care Provider] - See Referral Note (10 days for diabetes follow-up) Disposition Disposition (needs filled in before D/C Order can be placed): Home, Self Care Charges/Coding Visit Charges Inpatient E&M: 01004 Disch Hosp >30min
== END 2023-03-02 17:40 | disposition home or self-care (01) ==
LOC: ED 23:04 → PCU 03-02 02:54
PROVIDERS: Admitting Provider Hospitalist; Emergency Provider Student in an Organized Health Care Education/Training Program; PCP Nurse Practitioner; Visit Provider Internal Medicine
DX: I48.0 Paroxysmal atrial fibrillation (principal); D68.69 Other thrombophilia; I10 Essential (primary) hypertension; M79.602 Pain in left arm; Z87.891 Personal history of nicotine dependence; R06.02 Shortness of breath; Z79.01 Long term (current) use of anticoagulants; E78.5 Hyperlipidemia, unspecified; E66.9 Obesity, unspecified; K21.9 Gastro-esophageal reflux disease without esophagitis; Z79.899 Other long term (current) drug therapy; Z68.37 Body mass index [BMI] 37.0-37.9, adult
CPT/HCPCS: 36415; 71045; 80048; 82962; 83735; 83880; 84100; 84443; 84484; 85025; 85610; 93005; 96361; 96365; 96366; 96375; 99221; 99285; J7030; A4216; G0378

== ENCOUNTER 2023-03-23 09:31 | Outpatient (RCR) | payer OTHER, SELFPAY ==
[2023-03-23 10:34] LABS: International Normalized Ratio 2.4; Prothrombin Time (Protime)PT. 26.1 SECONDS (11.7-14.9)
== END 2023-03-26 18:00 | disposition home or self-care (01) ==
LOC: LAB 09:31
PROVIDERS: PCP Nurse Practitioner; Referring Provider Internal Medicine Cardiovascular Disease; Visit Provider Internal Medicine Cardiovascular Disease
DX: I48.0 Paroxysmal atrial fibrillation (principal); Z79.01 Long term (current) use of anticoagulants
CPT/HCPCS: 36415; 85610

== ENCOUNTER 2023-04-20 10:23 | Outpatient (RCR) | payer OTHER, SELFPAY ==
[2023-04-20 11:18] LABS: International Normalized Ratio 2.5; Prothrombin Time (Protime)PT. 27.7 SECONDS (11.7-14.9)
== END 2023-04-20 18:00 | disposition home or self-care (01) ==
LOC: LAB 10:23
PROVIDERS: PCP Nurse Practitioner; Referring Provider Internal Medicine Cardiovascular Disease; Visit Provider Internal Medicine Cardiovascular Disease
DX: I48.0 Paroxysmal atrial fibrillation (principal); Z79.01 Long term (current) use of anticoagulants
CPT/HCPCS: 36415; 85610

== ENCOUNTER 2023-05-25 09:11 | Outpatient (RCR) | payer OTHER, SELFPAY ==
[2023-05-25 10:22] LABS: International Normalized Ratio 2.5; Prothrombin Time (Protime)PT. 27.2 SECONDS (11.7-14.9)
== END 2023-05-25 18:00 | disposition home or self-care (01) ==
LOC: LAB 09:11
PROVIDERS: PCP Nurse Practitioner; Referring Provider Internal Medicine Cardiovascular Disease; Visit Provider Internal Medicine Cardiovascular Disease
DX: I48.0 Paroxysmal atrial fibrillation (principal); Z79.01 Long term (current) use of anticoagulants
CPT/HCPCS: 36415; 85610

== ENCOUNTER 2023-06-22 12:48 | Outpatient (RCR) | payer OTHER, SELFPAY ==
[2023-06-22 13:40] LABS: International Normalized Ratio 2.8; Prothrombin Time (Protime)PT. 29.5 SECONDS (11.7-14.9)
== END 2023-06-22 18:00 | disposition home or self-care (01) ==
LOC: LAB 12:48
PROVIDERS: PCP Nurse Practitioner; Referring Provider Internal Medicine Cardiovascular Disease; Visit Provider Internal Medicine Cardiovascular Disease
DX: I48.0 Paroxysmal atrial fibrillation (principal); Z79.01 Long term (current) use of anticoagulants
CPT/HCPCS: 36415; 85610

== ENCOUNTER 2023-07-23 12:35 | Outpatient (RCR) | payer OTHER, SELFPAY ==
[2023-07-23 13:51] LABS: International Normalized Ratio 2.7; Prothrombin Time (Protime)PT. 29.3 SECONDS (11.7-14.9)
== END 2023-07-26 18:00 | disposition home or self-care (01) ==
LOC: LAB 12:35
PROVIDERS: PCP Nurse Practitioner; Referring Provider Internal Medicine Cardiovascular Disease; Visit Provider Internal Medicine Cardiovascular Disease
DX: I48.0 Paroxysmal atrial fibrillation (principal); Z79.01 Long term (current) use of anticoagulants
CPT/HCPCS: 36415; 85610

== ENCOUNTER 2023-08-22 09:52 | Outpatient (RCR) | payer OTHER, SELFPAY ==
[2023-08-22 10:48] LABS: International Normalized Ratio 2.9; Prothrombin Time (Protime)PT. 30.3 SECONDS (11.7-14.9)
== END 2023-08-26 18:00 | disposition home or self-care (01) ==
LOC: LAB 09:52
PROVIDERS: PCP Nurse Practitioner; Referring Provider Internal Medicine Cardiovascular Disease; Visit Provider Internal Medicine Cardiovascular Disease
DX: I48.0 Paroxysmal atrial fibrillation (principal); Z79.01 Long term (current) use of anticoagulants
CPT/HCPCS: 36415; 85610

== ENCOUNTER 2023-09-21 10:39 | Outpatient (RCR) | payer OTHER, SELFPAY ==
[2023-09-21 11:04] LABS: International Normalized Ratio 2.4; Prothrombin Time (Protime)PT. 26.2 SECONDS (11.7-14.9)
== END 2023-09-21 18:00 | disposition home or self-care (01) ==
LOC: LAB 10:39
PROVIDERS: PCP Nurse Practitioner; Referring Provider Internal Medicine Cardiovascular Disease; Visit Provider Internal Medicine Cardiovascular Disease
DX: I48.0 Paroxysmal atrial fibrillation (principal); Z79.01 Long term (current) use of anticoagulants
CPT/HCPCS: 36415; 85610

== ENCOUNTER 2023-10-25 11:24 | Outpatient (RCR) | payer OTHER, SELFPAY ==
[2023-10-25 12:12] LABS: International Normalized Ratio 2.4; Prothrombin Time (Protime)PT. 26.3 SECONDS (11.7-14.9)
== END 2023-10-25 18:00 | disposition home or self-care (01) ==
LOC: LAB 11:24
PROVIDERS: Nurse Practitioner Family; PCP Nurse Practitioner; Referring Provider Internal Medicine Cardiovascular Disease; Visit Provider Internal Medicine Cardiovascular Disease
DX: I48.0 Paroxysmal atrial fibrillation (principal); Z79.01 Long term (current) use of anticoagulants
CPT/HCPCS: 36415; 85610

== ENCOUNTER 2023-11-23 10:33 | Outpatient (RCR) | payer OTHER, SELFPAY ==
[2023-11-23 11:45] LABS: International Normalized Ratio 2.6; Prothrombin Time (Protime)PT. 27.9 SECONDS (11.7-14.9)
== END 2023-11-25 01:36 | disposition home or self-care (01) ==
LOC: LAB 10:33
PROVIDERS: PCP Nurse Practitioner; Referring Provider Internal Medicine Cardiovascular Disease; Visit Provider Internal Medicine Cardiovascular Disease
DX: I48.0 Paroxysmal atrial fibrillation (principal); Z79.01 Long term (current) use of anticoagulants
CPT/HCPCS: 36415; 85610

== ENCOUNTER 2023-12-21 13:39 | Outpatient (RCR) | payer OTHER, SELFPAY ==
[2023-12-21 13:58] LABS: INR Fingerstick 3.1
== END 2023-12-25 22:42 | disposition home or self-care (01) ==
LOC: LAB 13:39
PROVIDERS: PCP Nurse Practitioner; Referring Provider Internal Medicine Cardiovascular Disease; Visit Provider Internal Medicine Cardiovascular Disease
DX: I48.0 Paroxysmal atrial fibrillation (principal); Z79.01 Long term (current) use of anticoagulants
CPT/HCPCS: 36416; 85610

== ENCOUNTER → 2024-01-01 | Outpatient (CLI) | payer OTHER, SELFPAY ==
[2024-01-01 21:52] LABS: Absolute Lymphocyte Count 2.83 X10^3/uL (0.83-4.51); Absolute Neutrophil Count 7.3 X10^3/uL (2.0-7.7); Basophil# 0.06 X10^3/uL; Basophil% 0.5 % (0-1); Eosinophil# 0.25 X10^3/uL; Eosinophils% 2.3 % (0-5); Hematocrit 42.3 % (40-54); Hemoglobin 14.5 g/dL (13.0-16.5); Lymphocyte # 2.83 X10^3/ul (0.83-4.51); Lymphocyte % 25.8 % (19-41); Mean Corp Hgb Conc 34.3 g/dL (32-36); Mean Corpuscular Hgb 29.8 pg (27.0-32.0); Mean Corpuscular Volume 86.9 fL (80-94); Mean Platelet Vol. 9.8 fl (6.2-12.0); Monocyte# 0.51 X10^3/uL; Monocyte% 4.7 % (0-10); NRBC Flagged by Analyzer 0 % (0-5); Neutrophil # 7.27 X10^3/uL (2.7-7.7); Neutrophil % 66.4 % (47-70); Platelet Count 253 K/mm3 (150-450); RBC Distribution Width CV 12.4 % (11.6-14.6); RBC Distribution Width SD 39.2 fl (35.1-43.9); Red Blood Count 4.87 M/mm3 (4.6-6.2)
[2024-01-01 22:25] LABS: ALB/GLOB Ratio 1.1 RATIO (0.9-2.4); AST(SGOT) 33 U/L (15-37); Alanine Aminotransfer ALT/SGPT 43 U/L (16-61); Albumin, Serum 3.9 g/dL (3.2-5.0); Alkaline Phosphatase 75 U/L (45-117); Anion Gap 7 (5-15); BUN 23 mg/dL (7-18); BUN/Creat Ratio 18.3 RATIO (10-20); Calcium,Total 9.1 mg/dL (8.5-10.1); Chloride 107 mmol/L (98-107); Cholesterol 210 mg/dL (200); Creatinine, Serum 1.26 mg/dL (0.70-1.30); EST Glomerular Filtration Rate 62 mL/min (>60); Est Glom Filt Rate - Afr Amer 74 mL/min (>60); Globulin 3.7 g/dL (2.2-4.2); Glucose 173 mg/dL (74-106); High Density Lipoprotein 38 mg/dL; PSA,Total - Annual Screen 0.56 ng/mL (0.00-4.00); Potassium 4.1 mmol/L (3.5-5.1); Protein, Total 7.6 g/dL (6.4-8.2); Sodium Level 139 mmol/L (136-145); Triglycerides 419 mg/dL
== END | disposition home or self-care (01) ==
PROVIDERS: PCP Nurse Practitioner; Visit Provider Nurse Practitioner
DX: E11.65 Type 2 diabetes mellitus with hyperglycemia (principal); I10 Essential (primary) hypertension; E78.1 Pure hyperglyceridemia; E66.9 Obesity, unspecified; R35.0 Frequency of micturition
CPT/HCPCS: 80053; 80061; 84153; 85025; G0103

== ENCOUNTER 2024-01-24 09:56 | Outpatient (RCR) | payer OTHER, SELFPAY ==
[2024-01-24 11:26] LABS: Prothrombin Time (Protime)PT. 31.1 SECONDS (11.7-14.9)
== END 2024-01-24 18:00 | disposition home or self-care (01) ==
LOC: LAB 09:56
PROVIDERS: Physician Assistant Medical; PCP Nurse Practitioner; Referring Provider Internal Medicine Cardiovascular Disease; Visit Provider Internal Medicine Cardiovascular Disease
DX: I48.0 Paroxysmal atrial fibrillation (principal); Z79.01 Long term (current) use of anticoagulants
CPT/HCPCS: 36415; 85610

== ENCOUNTER 2024-02-27 14:48 | Outpatient (RCR) | payer OTHER, SELFPAY ==
[2024-02-27 15:01] LABS: INR Fingerstick 3.3; Prothrombin Time Fingerstick 32.4 SEC (11.7-14.9)
== END 2024-03-26 18:00 | disposition home or self-care (01) ==
LOC: LAB 14:48
PROVIDERS: PCP Nurse Practitioner; Referring Provider Internal Medicine Cardiovascular Disease; Visit Provider Internal Medicine Cardiovascular Disease
DX: I48.0 Paroxysmal atrial fibrillation (principal); Z79.01 Long term (current) use of anticoagulants
CPT/HCPCS: 36416; 85610

== ENCOUNTER 2024-04-18 14:10 | Outpatient (RCR) | payer OTHER, SELFPAY ==
[2024-03-28 10:53] LABS: Prothrombin Time Fingerstick 29.8 SEC (11.7-14.9)
[2024-04-18 14:23] LABS: INR Fingerstick 2.8; Prothrombin Time Fingerstick 28.8 SEC (11.7-14.9)
== END 2024-04-18 18:00 | disposition home or self-care (01) ==
LOC: LAB 14:10
PROVIDERS: PCP Nurse Practitioner; Referring Provider Internal Medicine Cardiovascular Disease; Visit Provider Internal Medicine Cardiovascular Disease
DX: I48.0 Paroxysmal atrial fibrillation (principal); Z79.01 Long term (current) use of anticoagulants
CPT/HCPCS: 36416; 85610

== ENCOUNTER 2024-05-20 12:14 | Outpatient (RCR) | payer OTHER, SELFPAY ==
[2024-05-20 12:22] LABS: INR Fingerstick 3.3; Prothrombin Time Fingerstick 32.5 SEC (11.7-14.9)
== END 2024-05-20 18:00 | disposition home or self-care (01) ==
LOC: LAB 12:14
PROVIDERS: PCP Nurse Practitioner; Referring Provider Internal Medicine Cardiovascular Disease; Visit Provider Internal Medicine Cardiovascular Disease
DX: I48.0 Paroxysmal atrial fibrillation (principal); Z79.01 Long term (current) use of anticoagulants
CPT/HCPCS: 36416; 85610

== ENCOUNTER 2024-06-24 14:19 | Outpatient (RCR) | payer OTHER, SELFPAY ==
[2024-06-04 10:46] LABS: INR Fingerstick 3.1; Prothrombin Time Fingerstick 30.7 SEC (11.7-14.9)
[2024-06-25 11:23] LABS: INR Fingerstick 2.9; Prothrombin Time Fingerstick 30.3 SEC (11.7-14.9)
[2024-06-26 12:07] LABS: INR Fingerstick 2.9; Prothrombin Time Fingerstick 30.3 SEC (11.7-14.9)
== END 2024-06-24 18:00 | disposition home or self-care (01) ==
LOC: LAB 14:19
PROVIDERS: PCP Nurse Practitioner; Referring Provider Internal Medicine Cardiovascular Disease; Visit Provider Internal Medicine Cardiovascular Disease
DX: I48.0 Paroxysmal atrial fibrillation (principal); Z79.01 Long term (current) use of anticoagulants
CPT/HCPCS: 36416; 85610

== ENCOUNTER 2024-07-28 14:05 | Outpatient (RCR) | payer OTHER, SELFPAY ==
[2024-07-28 14:15] LABS: INR Fingerstick 2.5; Prothrombin Time Fingerstick 26.3 SEC (11.7-14.9)
== END 2024-07-28 18:00 | disposition home or self-care (01) ==
LOC: LAB 14:05
PROVIDERS: PCP Nurse Practitioner; Referring Provider Internal Medicine Cardiovascular Disease; Visit Provider Internal Medicine Cardiovascular Disease
DX: I48.0 Paroxysmal atrial fibrillation (principal); Z79.01 Long term (current) use of anticoagulants
CPT/HCPCS: 36416; 85610

== ENCOUNTER → 2024-08-12 | Outpatient (CLI) | payer OTHER, SELFPAY ==
[2024-08-12 09:59] LABS: AST(SGOT) 24 U/L (15-37); Alanine Aminotransfer ALT/SGPT 48 U/L (16-61); Albumin, Serum 3.6 g/dL (3.2-5.0); Alkaline Phosphatase 111 U/L (45-117); Bilirubin, Direct 0.14 mg/dL (0.00-0.30); Cholesterol 138 mg/dL (200); Globulin 3.8 g/dL (2.2-4.2); High Density Lipoprotein 41 mg/dL; Protein, Total 7.4 g/dL (6.4-8.2); Triglycerides 288 mg/dL; Very Low Density Lipoprotein 58 mg/dL (5-40)
[2024-08-12 10:00] LABS: Hemoglobin A1c 7.1 % (3.8-5.6)
== END | disposition home or self-care (01) ==
LOC: LAB 09:10
PROVIDERS: PCP Nurse Practitioner; Referring Provider Internal Medicine Cardiovascular Disease; Visit Provider Internal Medicine Cardiovascular Disease
DX: E78.1 Pure hyperglyceridemia (principal); E11.65 Type 2 diabetes mellitus with hyperglycemia
CPT/HCPCS: 36415; 80061; 80076; 83036

== ENCOUNTER 2024-08-28 12:21 | Outpatient (RCR) | payer BC, SELFPAY ==
[2024-08-28 12:33] LABS: INR Fingerstick 2.4; Prothrombin Time Fingerstick 25.7 SEC (11.7-14.9)
== END 2024-08-28 18:00 | disposition home or self-care (01) ==
LOC: LAB 12:21
PROVIDERS: PCP Nurse Practitioner; Referring Provider Internal Medicine Cardiovascular Disease; Visit Provider Internal Medicine Cardiovascular Disease
DX: I48.0 Paroxysmal atrial fibrillation (principal); Z79.01 Long term (current) use of anticoagulants
CPT/HCPCS: 36416; 85610

== ENCOUNTER 2024-10-17 10:55 | Outpatient (RCR) | payer BC, SELFPAY ==
[2024-10-02 11:17] LABS: INR Fingerstick 3.3; Prothrombin Time Fingerstick 33.6 SEC (11.7-14.9)
[2024-10-17 11:19] LABS: INR Fingerstick 2.3; Prothrombin Time Fingerstick 25.2 SEC (11.7-14.9)
== END 2024-10-24 18:00 | disposition home or self-care (01) ==
LOC: LAB 10:55
PROVIDERS: PCP Nurse Practitioner; Referring Provider Internal Medicine Cardiovascular Disease; Visit Provider Internal Medicine Cardiovascular Disease
DX: I48.0 Paroxysmal atrial fibrillation (principal); Z79.01 Long term (current) use of anticoagulants
CPT/HCPCS: 36416; 85610

== ENCOUNTER 2024-11-07 12:25 | Outpatient (RCR) | payer BC, SELFPAY ==
[2024-11-07 12:38] LABS: INR Fingerstick 2.2
== END 2024-11-07 18:00 | disposition home or self-care (01) ==
LOC: LAB 12:25
PROVIDERS: PCP Nurse Practitioner; Referring Provider Internal Medicine Cardiovascular Disease; Visit Provider Internal Medicine Cardiovascular Disease
DX: Z79.01 Long term (current) use of anticoagulants; I48.0 Paroxysmal atrial fibrillation
CPT/HCPCS: 36416; 85610

== ENCOUNTER 2024-12-10 12:12 | Outpatient (RCR) | payer BC, SELFPAY ==
[2024-12-10 12:21] LABS: INR Fingerstick 2.3; Prothrombin Time Fingerstick 25.3 SEC (11.7-14.9)
== END 2024-12-24 18:00 | disposition home or self-care (01) ==
LOC: LAB 12:12
PROVIDERS: PCP Nurse Practitioner; Referring Provider Internal Medicine Cardiovascular Disease; Visit Provider Internal Medicine Cardiovascular Disease
DX: I48.0 Paroxysmal atrial fibrillation (principal); Z79.01 Long term (current) use of anticoagulants
CPT/HCPCS: 36416; 85610

== ENCOUNTER 2025-01-13 12:00 | Outpatient (RCR) | payer BC, SELFPAY ==
[2025-01-13 12:13] LABS: INR Fingerstick 2.3; Prothrombin Time Fingerstick 24.7 SEC (11.7-14.9)
== END 2025-01-13 18:00 | disposition home or self-care (01) ==
LOC: LAB 12:00
PROVIDERS: PCP Nurse Practitioner; Referring Provider Internal Medicine Cardiovascular Disease; Visit Provider Internal Medicine Cardiovascular Disease
DX: I48.0 Paroxysmal atrial fibrillation (principal); Z79.01 Long term (current) use of anticoagulants
CPT/HCPCS: 36416; 85610

== ENCOUNTER 2025-02-18 11:48 | Outpatient (RCR) | payer BC, SELFPAY ==
[2025-02-18 11:55] LABS: INR Fingerstick 2.7; Prothrombin Time Fingerstick 28.9 SEC (11.7-14.9)
== END 2025-02-18 18:00 | disposition home or self-care (01) ==
LOC: LAB 11:48
PROVIDERS: PCP Nurse Practitioner; Referring Provider Internal Medicine Cardiovascular Disease; Visit Provider Internal Medicine Cardiovascular Disease
DX: I48.0 Paroxysmal atrial fibrillation (principal); Z79.01 Long term (current) use of anticoagulants
CPT/HCPCS: 36416; 85610

== ENCOUNTER 2025-03-26 12:16 | Outpatient (RCR) | payer BC, SELFPAY ==
[2025-03-27 09:09] LABS: INR Fingerstick 2.2
== END 2025-03-26 21:38 | disposition home or self-care (01) ==
LOC: LAB 12:16
PROVIDERS: PCP Nurse Practitioner; Referring Provider Internal Medicine Cardiovascular Disease; Visit Provider Internal Medicine Cardiovascular Disease
DX: I48.0 Paroxysmal atrial fibrillation (principal); Z79.01 Long term (current) use of anticoagulants
CPT/HCPCS: 36416; 85610

== ENCOUNTER → 2025-04-09 | Outpatient (CLI) | payer BC, SELFPAY ==
--- OUTSIDE RECORDS SUMMARY | 2025-04-09 23:55 | XMS RPT_ITS | CCD ---
Author Organization [facility] Care Team Providers [employer] Professional Name Role Phone FRANKLIN Mcintosh Attending Provider Diego HOSPITALITY RECRUITER, HOSPITALITY RECRUITER-C Pamela Referring Provider FRANKLIN Mcintosh Attending Provider Diego HOSPITALITY RECRUITER, HOSPITALITY RECRUITER-C Pamela Referring Provider Johnathon HOSPITALITY RECRUITER, HOSPITALITY RECRUITER-C Pamela Primary Care Provider Diego HOSPITALITY RECRUITER, HOSPITALITY RECRUITER-C Pamela Referring Provider FRANKLIN Mcintosh Attending Provider Dr. Benji Miller Attending Provider Dr. Benji Miller Referring Provider Dr. Benji Miller Other Provider Dr. Benji Miller Attending Provider Dr. Benji Miller Referring Provider Diego HOSPITALITY RECRUITER, HOSPITALITY RECRUITER-C Pamela Primary Care Provider Diego HOSPITALITY RECRUITER, HOSPITALITY RECRUITER-C Pamela Referring Provider FRANKLIN Mcintosh Attending Provider Dr. Benji Miller Attending Provider Dr. Benji Miller Referring Provider Dr. Benji Miller Other Provider Diego HOSPITALITY RECRUITER, HOSPITALITY RECRUITER-C Pamela Primary Care Provider Diego HOSPITALITY RECRUITER, HOSPITALITY RECRUITER-C Pamela Referring Provider FRANKLIN Mcintosh Attending Provider Dr. Benji Miller Attending Provider Dr. Benji Miller Referring Provider Diego HOSPITALITY RECRUITER, HOSPITALITY RECRUITER-C Pamela Primary Care Provider Diego HOSPITALITY RECRUITER, HOSPITALITY RECRUITER-C Pamela Referring Provider Kassi REID PA Greta Coburn Attending Provider Diego HOSPITALITY RECRUITER, HOSPITALITY RECRUITER-C Pamela Primary Care Provider Diego HOSPITALITY RECRUITER, HOSPITALITY RECRUITER-C Pamela Referring Provider FRANKLIN Mcintosh Attending Provider Diego HOSPITALITY RECRUITER, HOSPITALITY RECRUITER-C Pamela Primary Care Provider Diego HOSPITALITY RECRUITER, HOSPITALITY RECRUITER-C Pamela Referring Provider FRANKLIN Mcintosh Attending Provider Diego HOSPITALITY RECRUITER, HOSPITALITY RECRUITER-C Pamela Primary Care Provider Diego HOSPITALITY RECRUITER, HOSPITALITY RECRUITER-C Pamela Referring Provider FRANKLIN Mcintosh Attending Provider Diego HOSPITALITY RECRUITER-C, Pamela Primary Care Provider Dr. Benji Miller MD Attending Provider Dr. Benji Miller MD Referring Provider Greta Mcintosh Other Provider Diego HOSPITALITY RECRUITER-C, Pamela Referring Provider Diego HOSPITALITY RECRUITER-C, Pamela Primary Care Provider Dr. Benji Miller MD Attending Provider Dr. Benji Miller MD Referring Provider Greta Mcintosh Other Provider Diego HOSPITALITY RECRUITER-C, Pamela Primary Care Provider Paul HAMILTON Dr. Benji Attending Provider [phone] Paul HAMILTON, Dr. Leblanc Referring Provider [phone] Greta Mcintosh Other Provider [phone] Johnathon HOSPITALITY RECRUITER-C, Pamela Primary Care Provider Paul HAMILTON, Dr. Leblanc Attending Provider [phone] Paul HAMILTON, Dr. Leblanc Referring Provider [phone] Greta Mcintosh Other Provider [phone] Greta Mcintosh Consulting Unavail able Diego HOSPITALITY RECRUITER, Pamela Primary Care Unavailable Paul, Benji Referring Unavailable Paul, Benji Attending Unavailable Greta Mcintosh Consulting Unavail able Paul, Benji Referring Unavailable Paul, Benji Attending Unavailable Johnathon HOSPITALITY RECRUITER, Pamela Primary Care Unavailable Greta Mcintosh Consulting Unavail able Paul, Benji Referring Unavailable Diego HOSPITALITY RECRUITER, Pamela Primary Care Unavailable Paul, Benji Attending Unavailable Diego HOSPITALITY RECRUITER, Pamela Referring Unavailable Paul, Benji Attending Unavailable Diego HOSPITALITY RECRUITER, Pamela Primary Care Unavailable Paul, [place] Referring Unavailable Greta Mcintosh Consulting Unavail able Diego HOSPITALITY RECRUITER, Pamela Primary Care Unavailable Paul, [place] Attending Unavailable Greta Mcintosh Consulting Unavail able Paul, [place] Referring Unavailable Paul, [place] Attending Unavailable Diego HOSPITALITY RECRUITER, Pamela Primary Care Unavailable Greta Mcintosh Consulting Unavail able Diego HOSPITALITY RECRUITER, Pamela Primary Care Unavailable Paul, [place] Referring Unavailable Paul, Benji Attending Unavailable Greta Mcintosh Consulting Unavail able Paul, Benji Referring Unavailable Diego HOSPITALITY RECRUITER, Pamela Primary Care Unavailable Paul, Benji Attending Unavailable Greta Mcintosh Consulting Unavail able Paul, Benji Referring Unavailable Paul, Benji Attending Unavailable Diego HOSPITALITY RECRUITER, Pamela Primary Care Unavailable Paul, Benji Referring Unavailable Paul, Benji Attending Unavailable Diego HOSPITALITY RECRUITER, Pamela Primary Care Unavailable Paul, Benji Attending Unavailable Diego HOSPITALITY RECRUITER, Pamela Primary Care Unavailable Paul, Benji Referring Unavailable Greta Mcintosh Consulting Unavail able Paul, [place] Referring Unavailable Johnathon HOSPITALITY RECRUITER, Pamela Primary Care Unavailable Paul, Benji Attending Unavailable Greta Mcintosh Consulting Unavail able Paul, Benji Attending Unavailable Johnathon HOSPITALITY RECRUITER, Pamela Primary Care Unavailable Paul, Benji Referring Unavailable Greta Mcintosh Consulting Unavail able Paul, [place] Attending Unavailable Johnathon HOSPITALITY RECRUITER, Pamela Primary Care Unavailable Paul, Benji Referring Unavailable Greta Mcintosh Consulting Unavail able Johnathon HOSPITALITY RECRUITER, Pamela Primary Care Unavailable Paul, Benji Referring Unavailable Paul, [place] Attending Unavailable Allergies Allergy Classification Reported Allergen(s) Allergy Type Date of Onset Reaction(s) Facility (20 sources) Penicillins Allergy to substance 05-16-2022 Rash [facility] (1 source) Penicillins Drug allergy (disorder) 08-12-2024 [facility] Repository Medications Current Medications Medication Drug Class(es) Dates Sig (Normalized) Sig (Original) atorvastatin 20 mg oral tablet (5 sources) HMG-CoA Reductase Inhibitor Start: 01-02-2024 take 1 tablet by mouth once daily Atorvastatin 20 mg tablet Active 20 mg PO DAILY 90 January 02, 2024 12:00am warfarin sodium 5 mg oral tablet (20 sources) Vitamin K Antagonist Start: 09-17-2024 take 7.5 mg by mouth once daily Warfarin 5 mg tablet Active 7.5 mg PO DAILY 135 3 September 17, 2024 8:58am 7.5mg Th-Mon; 5mg /Sun; or use as directed Please contact the information source for Protocol details. Start: 05-16-2022 End: 09-17-2024 Warfarin 5 mg tablet Discont inued 0 mg .ROUTE .COMPLEX 135 3 September 24, 2023 9:24am September 17, 2024 8:59am take one and one half tablet (7.5mg) by mouth once daily Please contact the information source for Protocol details. Completed/Discontinued Medications Medication Drug Class(es) Dates Sig (Normalized) Sig (Original) aspirin 81 mg chewable tablet (20 sources) Platelet Aggregation Inhibitor, Nonsteroidal Anti-inflammatory Drug Start: 10-22-2018 End: 10-30-2018 take 1 tablet by mouth once daily Aspirin 81 mg tablet,chewable Discontinued 81 mg PO DAILY October 22, 2018 1:00am October 30, 2018 10:35am ciprofloxacin 500 mg oral tablet (20 sources) Quinolone Antimicrobial Start: 11-19-2019 End: 03-23-2021 take 1 tablet by mouth twice daily Ciprofloxacin Hcl 500 mg tablet Discontinued 500 mg PO TWICE A DAY November 19, 2019 12:00am March 23, 2021 5:22pm flecainide acetate 50 mg oral tablet (20 sources) Antiarrhythmic Start: 01-01-2024 End: 03-15-2025 take 1 tablet by mouth every twelve hours Flecainide 50 mg tablet Discontinued 50 mg PO Q12H 180 90 December 15, 2024 9:42am March 14, 2025 12:00am March 15, 2025 12:08am Start: 03-09-2023 End: 01-01-2024 take 1 tablet by mouth every twelve hours Flecainide 100 mg tablet Discontinued 100 mg PO Q12H 180 December 12, 2023 9:35am January 01, 2024 7:28pm Start: 03-02-2023 End: 03-09-2023 Flecainide 100 mg tablet Discontinued 150 mg PO Q12H 180 March 02, 2023 2:15pm March 09, 2023 3:07pm Start: 03-02-2023 End: 03-09-2023 take 150 mg by mouth every twelve hours Flecainide Discontinued 150 MG PO Q12H 180 March 02, 2023 2:15pm March 09, 2023 3:07pm Start: 08-03-2022 End: 03-02-2023 take 1 tablet by mouth every twelve hours Flecainide 100 mg tablet Discontinued 100 mg PO Q12H 60 September 07, 2022 5:29pm February 05, 2023 11:00am lisinopril 20 mg oral tablet (20 sources) Angiotensin Converting Enzyme Inhibitor Start: 05-16-2022 End: 12-26-2024 take 1 tablet by mouth once daily Lisinopril 20 mg tablet Discontinued 20 mg PO DAILY 90 December 15, 2024 7:55am December 26, 2024 11:01am Start: 01-26-2021 End: 05-16-2022 take 0.5 tablet by mouth twice daily Lisinopril 20 mg tablet Discontinued 0 .ROUTE .COMPLEX 90 February 13, 2022 12:35pm May 16, 2022 2:23pm take 1/2 tablet by mouth twice a day Start: 11-01-2018 End: 01-26-2021 take 10 mg by mouth twice daily Lisinopril 20 mg table t Discontinued 10 mg PO TWICE A DAY 90 December 05, 2019 10:07am January 26, 2021 1:35pm Start: 11-01-2018 End: 05-16-2022 take 0.5 tablet by mouth twice daily Lisinopril Discontinued 0 .ROUTE .COMPLEX 90 February 13, 2022 12:35pm May 16, 2022 2:23pm take 1/2 tablet by mouth twice a day Start: 10-30-2018 End: 11-01-2018 take 1 tablet by mouth once daily Lisinopril 20 mg tablet Discontinued 20 mg PO DAILY 90 October 30, 2018 10:59am November 01, 2018 5:45pm Start: 10-22-2018 End: 10-30-2018 take 1 tablet by mouth once daily Lisinopril 10 mg tablet Discontinued 10 mg PO DAILY 30 October 22, 2018 1:00am October 30, 2018 11:04am metFORMIN hydrochloride 500 mg oral tablet (20 sources) Biguanide Start: 03-02-2023 End: 01-01-2024 take 1 tablet by mouth twice daily Metformin 500 mg tablet Discontinued 500 mg PO TWICE A DAY 180 April 02, 2023 11:16am January 01, 2024 7:35pm 24 hr metoprolol succinate 50 mg extended release oral tablet (20 sources) beta-Adrenergic Naz Start: 03-09-2023 End: 12-26-2024 take 1 tablet by mouth once daily Metoprolol Succinate 50 mg tablet extended release 24 hr Discontinued 50 mg PO DAILY 90 December 15, 2024 7:55am December 26, 2024 2:28pm Start: 03-02-2023 End: 03-09-2023 Metoprolol Succinate 25 mg t ablet extended release 24 hr Discontinued 50 mg PO TWICE DAILY WITH MEALS 90 March 02, 2023 4:48pm March 09, 2023 3:07pm Start: 03-02-2023 End: 03-09-2023 take 50 mg by mouth twice daily at mealtime Metoprolol Succinate Discontinued 50 MG PO TWICE DAILY WITH MEALS March 02, 2023 4:48pm March 09, 2023 3:07pm Start: 03-02-2023 End: 03-02-2023 take 1 tablet by mouth twice daily at mealtime Metoprolol Succinate 25 mg tablet extended release 24 hr Discontinued 25 mg PO TWICE DAILY WITH MEALS 90 3 March 02, 2023 2:15pm March 02, 2023 4:48pm Start: 05-16-2022 End: 03-02-2023 take 1 tablet by mouth once daily Metoprolol Succinate 25 mg tablet extended release 24 hr Discontinued 25 mg PO DAILY 90 May 16, 2022 12:00am March 02, 2023 2:15pm Problems Problem Classification Problem Date Documented Date Episodic/Chronic Cardiac dysrhythmias (20 sources) Cardiac arrhythmia; Translations: [Cardiac arrhythmia, unspecified] Onset: 12-15-2024 Chronic Cardiac dysrhythmias (20 sources) Palpitations - rapid; Translations: [Palpitations] 05-15-2022 Episodic Coagulation and hemorrhagic disorders (18 sources) Other thrombophilia; Translations: [Hypercoagulable state due to atrial fibrillation] 03-02-2023 Chronic Conduction disorders (20 sources) Right bundle branch block; Translations: [Unspecified right bundle-branch block] 10-30-2018 Chronic Diabetes mellitus with complications (17 sources) Hyperglycemia due to type 2 diabetes mellitus; Translations: [Type 2 diabetes mellitus with hyperglycemia] 03-09-2023 Chronic Disorders of lipid metabolism (20 sources) Hypertriglyceridemia; Translations: [Pure hyperglyceridemia] Onset: 09-12-2024 10-25-2018 Chronic Essential hypertension (20 sources) Essential hypertension; Translations: [Essential (primary) hypertension] Chronic Genitourinary symptoms and ill-defined conditions (20 sources) Dysuria; Translations: [Dysuria] 05-15-2022 Episodic Nonspecific chest pain (20 sources) Chest pain; Translations: [Chest pain, unspecified] 05-15-2022 Episodic Other aftercare (20 sources) Long-term 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; Translations: [terminologist (current) use of anticoagulants] 05-25-2022 Episodic Other aftercare (6 sources) terminologist (current) use of anticoagulants; Translations: [Long-term (current) use of anticoagulants] 03-02-2023 Episodic Other connective tissue disease (20 sources) Pain in buttock; Translations: [Myalgia, other site] 05-15-2022 Episodic Other nutritional; endocrine; and metabolic disorders (20 sources) Obesity; Translations: [Obesity, unspecified] 05-15-2022 Chronic Other screening for suspected conditions (not mental disorders or infectious disease) (20 sources) Electrocardiogram abnormal; Translations: [Abnormal electrocardiogram [ECG] [EKG]] 05-15-2022 Episodic Superficial injury; contusion (20 sources) Injury of buttock; Translations: [Contusion of lower back and pelvis, initial encounter] 05-15-2022 Episodic Urinary tract infections (20 sources) Urinary tract infectious disease; Translations: [Urinary tract infection, site not specified] 05-15-2022 Episodic Results Test Name Value Interpretation Reference Range Facility Protime w/INR Fingerstickon 03-27-2025 INR Coag (PPP) [Relative time] 2.2 {INR} Normal [facility] Comment on above: Result Comment: Crit ical Value > 4.0 Performed By: #### L 9200.0000 #### [facility] [address], [place], [id number] Protime [place] 23.7 SEC High 11.7-14.9 [facility] Comment on above: Performed By: #### L 9200.0000 #### [facility] [address], [place], [id number] International normalized rat io (INR) measurement by fingerstickOrdered By: Benji Miller on 02-18-2025 INR Coag (BldC) [Relative time] 2.7 [facility] Comment on above: Critical Value > 4.0 Protime w/INR Fingerstickon 02-18-2025 INR Coag (PPP) [Relative time] 2.7 {INR} Normal [facility] Comment on above: Result Comment: Crit ical Value > 4.0 Performed By: #### L 9200.0000 #### [facility] [address] [place], [address] Protime [place] 28.9 SEC High 11.7-14.9 [facility] Comment on above: Performed By: #### L 9200.0000 #### [facility] [address] [place], [address] Whole blood prothrombin time Ordered By: Benji Miller on 02-18-2025 PT Coag (Bld) [Time] 28.9 s High 11.7-14.9 [facility] International normalized rat io (INR) measurement by fingerstickOrdered By: Benji Miller on 01-13-2025 INR Coag (BldC) [Relative time] 2.3 [facility] Comment on above: Critical Value > 4.0 Prothrombin Time w/INRon INR Normal [facility] Comment on above: Order Comment: Comme nts: STANDING ORDER, fingerstick is OK Result Comment: FING ERSTICK Performed By: #### L 300.3900 #### [facility] [address] [place], [address] PROTIME Normal 11.7-14.9 [facility] Comment on above: Order Comment: Comme nts: STANDING ORDER, fingerstick is OK Result Comment: FING ERSTICK Performed By: #### L 300.3900 #### [facility] [address] [place], [address] Protime w/INR Fingerstickon 01-13-2025 INR Coag (PPP) [Relative time] 2.3 {INR} Normal [facility] Comment on above: Result Comment: Crit ical Value > 4.0 Performed By: #### L 9200.0000 #### [facility] [address] [place], [address] Protime [place] 24.7 SEC High 11.7-14.9 [facility] Comment on above: Performed By: #### L 9200.0000 #### [facility] [address] [place], [address] Whole blood prothrombin time Ordered By: Benji Miller on 01-13-2025 PT Coag (Bld) [Time] 24.7 s High 11.7-14.9 [facility] International normalized rat io (INR) measurement by fingerstickOrdered By: Benji Miller on 12-10-2024 INR Coag (BldC) [Relative time] 2.3 [facility] Comment on above: Critical Value > 4.0 Protime w/INR Fingerstickon 12-10-2024 INR Coag (PPP) [Relative time] 2.3 {INR} Normal [facility] Comment on above: Result Comment: Crit ical Value > 4.0 Performed By: #### L 9200.0000 #### [facility] [address] [place], [place], [id number] Protime [place] 25.3 SEC High 11.7-14.9 [facility] Comment on above: Performed By: #### L 9200.0000 #### [facility] [address] [place], [place], [id number] Whole blood prothrombin time Ordered By: Benji Miller on 12-10-2024 PT Coag (Bld) [Time] 25.3 s High 11.7-14.9 [facility] INR Coag (BldC) [Relative ti me]Ordered By: Benji Miller on 11-07-2024 INR Coag (Bld) [Relative time] 2.2 {INR} [facility] Comment on above: Critical Value > 4.0 International normalized rat io (INR) measurement by fingerstickOrdered By: Benji Miller on 11-07-2024 INR Coag (BldC) [Relative time] 2.2 [facility] Comment on above: Critical Value > 4.0 PT Coag (Bld) [Time]Ordered By: Benji Miller on 11-07-2024 Bedside Prothrombin Time 24.0 SEC High 11.7-14.9 [facility] Protime w/INR Fingerstickon 11-07-2024 INR Coag (PPP) [Relative time] 2.2 {INR} Normal [facility] Comment on above: Result Comment: Crit ical Value > 4.0 Performed By: #### L 9200.0000 #### [facility] [address] [place], [address] Protime [place] 24.0 SEC High 11.7-14.9 [facility] Comment on above: Performed By: #### L 9200.0000 #### [facility] [address] [place], [address] Whole blood prothrombin time Ordered By: Benji Miller on 11-07-2024 PT Coag (Bld) [Time] 24.0 s High 11.7-14.9 [facility] INR Coag (BldC) [Relative ti me]Ordered By: Benji Miller on 10-17-2024 INR Coag (Bld) [Relative time] 2.3 {INR} [facility] Comment on above: Critical Value > 4.0 International normalized rat io (INR) measurement by fingerstickOrdered By: Benji Miller on 10-17-2024 INR Coag (BldC) [Relative time] 2.3 [facility] Comment on above: Critical Value > 4.0 PT Coag (Bld) [Time]Ordered By: Benji Miller on 10-17-2024 Bedside Prothrombin Time 25.2 SEC High 11.7-14.9 [facility] Protime w/INR Fingerstickon 10-17-2024 INR Coag (PPP) [Relative time] 2.3 {INR} Normal [facility] Comment on above: Result Comment: Crit ical Value > 4.0 Performed By: #### L 9200.0000 #### [facility] [address] [place], [address] Protime [place] 25.2 SEC High 11.7-14.9 [facility] Comment on above: Performed By: #### L 9200.0000 #### [facility] [address] [place], [address] Whole blood prothrombin time Ordered By: Benji Miller on 10-17-2024 PT Coag (Bld) [Time] 25.2 s High 11.7-14.9 [facility] Protime w/INR Fingerstickon 10-02-2024 INR Coag (PPP) [Relative time] 3.3 {INR} Normal [facility] Comment on above: Result Comment: Crit ical Value > 4.0 Performed By: #### L 9200.0000 #### [facility] [address] [place], [address] Protime [place] 33.6 SEC High 11.7-14.9 [facility] Comment on above: Performed By: #### L 9200.0000 #### [facility] [address] [place], [address] INR Coag (BldC) [Relative ti me]Ordered By: Benji Miller on 08-28-2024 INR Coag (Bld) [Relative time] 2.4 {INR} [facility] Comment on above: Critical Value > 4.0 PT Coag (Bld) [Time]Ordered By: Benji Miller on 08-28-2024 Bedside Prothrombin Time 25.7 SEC High 11.7-14.9 [facility] Protime w/INR Fingerstickon 08-28-2024 INR Coag (PPP) [Relative time] 2.4 {INR} Normal [facility] Comment on above: Result Comment: Crit ical Value > 4.0 Performed By: #### L 9200.0000 #### [facility] [address] [place], [address] Protime [place] 25.7 SEC High 11.7-14.9 [facility] Comment on above: Performed By: #### L [id number] #### [facility] [address] [place], [address] Bilirubin directOrdered By: Benji Miller on 08-12-2024 Bilirubin.direct [Mass/Vol] 0.14 mg/dL 0.00-0.30 [facility] Bilirubin, totalOrdered By: Benji Miller on 08-12-2024 Bilirubin [Mass/Vol] 0.70 mg/dL 0.20-1.00 [facility] Comment on above: For patients on eltr ombopag therapy, use of Dimension [place] TBIL is not recommended. Cardiology Visit Reporton Cardiology Visit Report [facility] [address] [place] [address] OFFICE VISIT Date of Service: 08/12/24 MR#: [id number] Acct: [id number] Name: NICOLA HUIZAR Jr. Rep #: [id number] : 1960 Provider: Dr. Benji Miller MD Age/Sex: 64/M Location: [facility] [place] [place] Status: Signed HPI HPI History of Present Illness Details: Nicola Huizar is a 64-year-old gentleman that presents here today for a cardiovascular follow-up. He does have a history of hypertension, and PAF. He was admitted to the hospital for Afib with RVR on 03/02/23. He was started on a cardizem drip and his BB was increased. this was increased to 50 mg BID. He previously was on 25 mg a day. He did concert back to SR, his flecainide was also increased to 150 mg BID. At his lasix OV we decreased his flecainide back to 100 mg BID, he is on metoprolol XL 50 once a day. He says that overall he has been doing quite well with only occasional episodes of palpitations not long-lasting. He denies any shortness of breath no paroxysmal nocturnal dyspnea pedal edema. You do remember that he had had a stress test 5 years ago with no evidence of ischemia at a moderate workload and a coronary calcium score in 2021 which was 111. His physical exam today is unremarkable Intake Vital Signs 06/11/23 08:33 01/01/24 19:23 08/12/24 08:40 Height 6 ft 3 in 6 ft 3 in 6 ft 3 in Weight: 296 lb BMI 37.0 BP 139/77 H Blood Pressure Location Lt brachial Position Sitting Respiration 16 Pulse 64 Pulse Source Monitor Intake Visit Reasons: [employer] In[employer] Required: No Accompanied by: Significant Other Is patient in pain?: No Allergies Penicillins (PCN) Allergy (Verified 08/12/24 08:42) Rash Medications ???Medication ???Instructions ???Recorded ???Confirmed ???Type warfarin 5 mg tablet See Rx Instructions .Route 09/24/23 08/12/24 Rx .COMPLEX #135 tabs lisinopril 20 mg tablet 20 mg PO DAILY #90 tabs 12/12/23 08/12/24 Rx metoprolol succinate 50 mg 50 mg PO DAILY #90 tabs 12/12/23 08/12/24 Rx tablet,extended release 24 hr flecainide 50 mg tablet 50 mg PO Q12H 01/01/24 08/12/24 History metformin 500 mg tablet 500 mg PO BID #180 tabs 01/01/24 08/12/24 Rx atorvastatin 20 mg tablet 20 mg PO DAILY #90 tabs 01/02/24 08/12/24 Rx Have you fallen in the past year?: No PFSH Medical History Hyperglycemia due to type 2 diabetes mellitus Hypercoagulability due to atrial fibrillation 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 PAF (paroxysmal atrial fibrillation) Rapid palpitations Pain in right buttock Traumatic ecchymosis of buttock Dysuria GERD (gastroesophageal reflux disease) Bifascicular block Right bundle branch block (RBBB) Snoring Nicotine dependence in remission Essential (primary) hypertension Hypertriglyceridemi a Obesity Malignant hypertension Cardiac arrhythmia Surgical History H/O shoulder surgery Effusion, right knee Family History Mother Cancer lymphoma Father Hypertension Brother Diabetes Sister Irregular heart beat RFA Other Lymphoma Social History Smoking Status: Former smoker quit date: 08/19/17 pack-years: 35 alcohol intake: current alcohol intake frequency: holidays/special occasions only substance use type: does not use caffeine: Yes Type: coffee Number of servings: 3 ROS Const Const: Positive for fatigue and difficulty sleeping; Negative for weakness, headache(s) or daytime sleepiness ENT ENT: Negative for headache(s), dizziness or Nosebleed/epistaxis Cardio Chest Pain: No Palpitations: Yes (few times since last OV) Edema: None Resp Respiratory: Negative for SOB with activity, SOB at rest, SOB orthopnea SOB lying down or Cough GI GI: Positive for heartburn; Negative nausea or vomiting Neuro Neuro: Negative for dizziness, lightheadedness, near syncope, headache(s) or weakness Endo Endo: Positive for fatigue Cardiology Exam Const Appearance: cooperative, healthy appearing, comfortable, no acute distress and well developed Orientation: alert, awake and oriented x3 Head Head: normal to inspection Ears: hearing grossly normal bilaterally Nose: external nose normal Face and Sinus: face symmetric Mouth: oral mucosae normal, lip normal and moist mucous membranes Eyes General: appearance normal, both eyes and all related structures Eyelids: eyelids normal Conjunctivae: conjunctivae normal Pupils: PERRL EOM: EOM intact bilaterally Neck Neck: normal visual inspection and trachea midline; Negative no JVD Carotids: Negative bruit Chest Chest inspection: normal inspect (more content not included)... Normal [facility] Hemoglobin A1c percentageOrd ered By: Benji Miller on 08-12-2024 HbA1c (Bld) [Mass fraction] 7.1 % High 3.8-5.6 [facility] Comment on above: Normal < 5.7 % Predi abetic 5.7 - 6.4 % Diabetic >or= 6.5 % Please note range changes. Result Comment: Norm al < 5.7 % Prediabetic 5.7 - 6.4 % Diabetic >or= 6.5 % Please note range changes. Performed By: #### L 500.3400, L500.4100, L501.9985 #### [facility] [address] [place], [place], [id number] High density lipoprotein (HD L) measurementOrdered By: Benji Miller on 08-12-2024 Cholesterol in HDL [Mass/Vol] 41 mg/dL >40 [facility] Comment on above: The drugs N-Acetylcy steine and Metamizole may falsely depress this assay. Reference Range HDL <40 mg/dL Low HDL Cholesterol HDL >or= 60 mg/dL High HDL Cholesterol Laboratory - Chemistry and C hemistry - challengeOrdered By: Benji Miller on 08-12-2024 AST [Catalytic activity/Vol] 24 U/L 15-37 [facility] Lipid Profileon 08-12-2024 Cholesterol [Mass/Vol] 138 mg/dL Normal 200 [facility] Comment on above: Result Comment: <200 mg/dL Desirable 200-240 mg/dL Borderline >240 mg/dL High Risk Performed By: #### L 9200.0000 #### [facility] [address] [place], [address] Cholesterol in HDL [Mass/Vol] 41 mg/dL Normal [facility] Comment on above: Result Comment: The drugs N-Acetylcysteine and Metamizole may falsely depress this assay. Reference Range HDL <40 mg/dL Low HDL Cholesterol HDL >or= 60 mg/dL High HDL Cholesterol Performed By: #### L 9200.0000 #### [facility] [address] [place], [address] Cholesterol in LDL [Mass/Vol] 39 mg/dL Normal 0-130 [facility] Comment on above: Performed By: #### L [id number] #### [facility] [address] [place], [address] Cholesterol in VLDL [Mass/Vol] 58 mg/dL High 5-40 [facility] Comment on above: Performed By: #### L 9200.0000 #### [facility] [address] [place], [address] Triglyceride [Mass/Vol] 288 mg/dL High [facility] Comment on above: Result Comment: The drugs N-Acetylcysteine and Metamizole may falsely depress this assay. Serum Triglycerides Reference Interval Normal <150 mg/dL Borderline high 150 - 199 mg/dL High 200 - 499 mg/dL Very High > or = 500 mg/dL Performed By: #### L 9200.0000 #### [facility] [address] [place], [address] Liver Profileon 08-12-2024 Albumin [Mass/Vol] 3.6 g/dL Normal 3.2-5.0 [facility] Comment on above: Performed By: #### L [id number] #### [facility] [address] [place], [address] ALK P 111 U/L Normal 45-117 [facility] Comment on above: Performed By: #### L [id number] #### [facility] [address] [place], [address] ALT [Catalytic activity/Vol] 48 U/L Normal 16-61 [facility] Comment on above: Performed By: #### L [id number] #### [facility] [address] [place], [address] AST [Catalytic activity/Vol] 24 U/L Normal 15-37 [facility] Comment on above: Performed By: #### L [id number] #### [facility] [address] [place], [address] Bilirubin [Mass/Vol] 0.70 mg/dL Normal 0.20-1.00 [facility] Comment on above: Result Comment: For patients on eltrombopag therapy, use of Dimension [place] TBIL is not recommended. Performed By: #### L 9200.0000 #### [facility] [address] [place], [address] Bilirubin.direct [Mass/Vol] 0.14 mg/dL Normal 0.00-0.30 [facility] Comment on above: Performed By: #### L [id number] #### [facility] [address] [place], [address] Globulin (S) [Mass/Vol] 3.8 g/dL Normal 2.2-4.2 [facility] Comment on above: Performed By: #### L [id number] #### [facility] [address] [place], [address] T PROT 7.4 g/dL Normal 6.4-8.2 [facility] Comment on above: Performed By: #### L 9200.0000 #### [facility] [address] [place], [place], [address] Low density lipoprotein (LDL ) cholesterol measurementOrdered By: Benji Miller on 08-12-2024 Cholesterol in LDL [Mass/Vol] 39 mg/dL 0-130 [facility] Serum globulin measurementOr dered By: Benji Miller on 08-12-2024 Globulin (S) [Mass/Vol] 3.8 g/dL 2.2-4.2 [facility] Serum or plasma alanine herrera otransferase (ALT) measurementOrdered By: Benji Miller on 08-12-2024 ALT [Catalytic activity/Vol] 48 U/L 16-61 [facility] Serum or plasma albumin maddy urement (mass/volume)Ordered By: Benji Miller on 08-12-2024 Albumin [Mass/Vol] 3.6 g/dL 3.2-5.0 [facility] Serum or plasma alkaline karmen sphatase measurementOrdered By: Benji Miller on 08-12-2024 ALP [Catalytic activity/Vol] 111 U/L 45-117 [facility] Serum or plasma cholesterol measurement (mass/volume)Ordered By: Benji Miller on 08-12-2024 Cholesterol [Mass/Vol] 138 mg/dL <200 [facility] Comment on above: <200 mg/dL Desirable 200-240 mg/dL Borderline >240 mg/dL High Risk Total proteinOrdered By: Melissa Miller on 08-12-2024 Protein [Mass/Vol] 7.4 g/dL 6.4-8.2 [facility] Triglycerides measurementOrd ered By: Benji Miller on 08-12-2024 Triglyceride [Mass/Vol] 288 mg/dL High <199 [facility] Comment on above: The drugs N-Acetylcy steine and Metamizole may falsely depress this assay.Serum Triglycerides Reference Interval Normal <150 mg/dL Borderline high 150 - 199 mg/dL High 200 - 499 mg/dL Very High > or = 500 mg/dL Very low density lipoprotein (VLDL) cholesterol measurementOrdered By: [place] Paul on 08-12-2024 VLDL Cholesterol 58 mg/dL High 5-40 [facility] INR Coag (BldC) [Relative ti me]Ordered By: Benji Paul on 07-28-2024 INR Coag (Bld) [Relative time] 2.5 {INR} [facility] Comment on above: Critical Value > 4.0 PT Coag (Bld) [Time]Ordered By: Benji Paul on 07-28-2024 Bedside Prothrombin Time 26.3 SEC High 11.7-14.9 [facility] Protime w/INR Fingerstickon 07-28-2024 INR Coag (PPP) [Relative time] 2.5 {INR} Normal [facility] Comment on above: Result Comment: Crit ical Value > 4.0 Performed By: #### L 9200.0000 #### [facility] [address] [place], [address] Protime Coagsen 26.3 SEC High 11.7-14.9 [facility] Comment on above: Performed By: #### L 9200.0000 #### [facility] [address] [place], [address] Protime w/INR Fingerstickon 06-26-2024 INR Coag (PPP) [Relative time] 2.9 {INR} Normal [facility] Comment on above: Result Comment: Crit ical Value > 4.0 Performed By: #### L 9200.0000 #### [facility] [address] [place], [address] Protime Coagsen 30.3 SEC High 11.7-14.9 [facility] Comment on above: Performed By: #### L 9200.0000 #### [facility] [address] [place], [address] Protime w/INR Fingerstickon 06-25-2024 INR Coag (PPP) [Relative time] 2.9 {INR} Normal [facility] Comment on above: Result Comment: Crit ical Value > 4.0 Performed By: #### L 9200.0000 #### [facility] [address] [place], [address] Protime Coagsen 30.3 SEC High 11.7-14.9 [facility] Comment on above: Performed By: #### L 9200.0000 #### [facility] [address] [place], [address] Protime w/INR Fingerstickon 06-04-2024 INR Coag (PPP) [Relative time] 3.1 {INR} Normal [facility] Comment on above: Result Comment: Crit ical Value > 4.0 Performed By: #### L [id number] #### [facility] [address] [place], [address] Protime Coagsen 30.7 SEC High 11.7-14.9 [facility] Comment on above: Performed By: #### L 9200.0000 #### [facility] [address] [place], [address] Protime w/INR Fingerstickon 05-20-2024 INR Coag (PPP) [Relative time] 3.3 {INR} Normal [facility] Comment on above: Result Comment: Crit ical Value > 4.0 Performed By: #### L [id number] #### [facility] [address] [place], [address] Protime Coagsen 32.5 SEC High 11.7-14.9 [facility] Comment on above: Performed By: #### L 9200.0000 #### [facility] [address] [place], [address] Protime w/INR Fingerstickon 04-18-2024 INR Coag (PPP) [Relative time] 2.8 {INR} Normal [facility] Comment on above: Result Comment: Crit ical Value > 4.0 Performed By: #### L [id number] #### [facility] [address] [place], [address] Protime Coagsen 28.8 SEC High 11.7-14.9 [facility] Comment on above: Performed By: #### L [id number] #### [facility] [address] [place], [place], [id number] Absolute lymphocyte countOrd ered By: Pamela Diego on 01-01-2024 Lymphocytes Auto (Unsp spec) [#/Vol] 2.83 10*3/uL 0.83-4.51 [facility] Automated lymphocyte count a s percentage of total leukocytesOrdered By: Pamela Diego on 01-01-2024 Lymphocytes/100 WBC Auto (Unsp spec) 25.8 % 19-41 [facility] Basophil percentageOrdered B y: Pamela Diego on 01-01-2024 Basophils/100 WBC (Bld) 0.5 % 0-1 [facility] Bilirubin [Mass/Vol] 0.50 mg/dL 0.20-1.00 [facility] Comment on above: For patients on eltr ombopag therapy, use of Dimension [place] TBIL is not recommended. Chloride [Moles/Vol] 107 mmol/L 98-107 [facility] Cholesterol [Mass/Vol] 210 mg/dL <200 [facility] Comment on above: <200 mg/dL Desirable 200-240 mg/dL Borderline >240 mg/dL High Risk Eosinophils/100 WBC (Bld) 2.3 % 0-5 [facility] Glucose [Mass/Vol] 173 mg/dL 74-106 [facility] Comment on above: Fasting Glucose resu lt greater than or equal to 126 mg/dL suggests DIABETES MELLITUS per A.D.A. criteria. Hemoglobin (Bld) [Mass/Vol] 14.5 g/dL 13.0-16.5 [facility] Monocytes/100 WBC (Bld) 4.7 % 0-10 [facility] Neutrophils (Bld) [#/Vol] 7.3 10*3/uL 2.0-7.7 [facility] Neutrophils/100 WBC (Bld) 66.4 % 47-70 [facility] Potassium [Moles/Vol] 4.1 mmol/L 3.5-5.1 [facility] Protein [Mass/Vol] 7.6 g/dL 6.4-8.2 [facility] Sodium [Moles/Vol] 139 mmol/L 136-145 [facility] Triglyceride [Mass/Vol] 419 mg/dL <199 [facility] Comment on above: The drugs N-Acetylcy steine and Metamizole may falsely depress this assay. TRIGLYCERIDE IS GREATER THAN 400 mg/dL. LDL RESULT IS INVALID AND WILL NOT BE REPORTED.Serum Triglycerides Reference Interval Normal <150 mg/dL Borderline high 150 - 199 mg/dL High 200 - 499 mg/dL Very High > or = 500 mg/dL WBC (Bld) [#/Vol] 11.0 10*3/uL 4.4-11.0 [facility] Determination of erythrocyte mean corpuscular volume (MCV)Ordered By: Pamela Diego on 01-01-2024 MCV (RBC) [Entitic vol] 86.9 fL 80-94 [facility] Erythrocyte distribution wid th ratioOrdered By: Pamela Diego on 01-01-2024 Erythrocyte distribution width (RBC) [Ratio] 12.4 % 11.6-14.6 [facility] Erythrocyte distribution wid th standard deviationOrdered By: Pamela Diego on 01-01-2024 Erythrocyte distribution width (RBC) [Entitic vol] 39.2 fL 35.1-43.9 [facility] Hematocrit Auto (Bld) [Volum e fraction]Ordered By: Pamela Diego on 01-01-2024 Hematocrit (Bld) [Volume fraction] 42.3 % 40-54 [facility] Immature granulocytes/100 WB C Auto (Bld)Ordered By: Pamela Diego on 01-01-2024 Immature granulocytes/100 WBC (Bld) 0.300 % 0.0-0.9 [facility] Comment on above: IG% - Immature Granu locytes (promyelocytes, myelocytes and metamyelocytes) > 1% indicates that a LEFT SHIFT is Present. Laboratory - Chemistry and C hemistry - challengeOrdered By: Pamela Diego on 01-01-2024 Albumin/Globulin [Mass ratio] 1.1 {ratio} 0.9-2.4 [facility] ALP [Catalytic activity/Vol] 75 U/L 45-117 [facility] ALT [Catalytic activity/Vol] 43 U/L 16-61 [facility] Cholesterol in HDL [Mass/Vol] 38 mg/dL >40 [facility] Comment on above: The drugs N-Acetylcy steine and Metamizole may falsely depress this assay. Reference Range HDL <40 mg/dL Low HDL Cholesterol HDL >or= 60 mg/dL High HDL Cholesterol CO2 [Moles/Vol] 25.0 mmol/L 21.0-32.0 [facility] Globulin (S) [Mass/Vol] 3.7 g/dL 2.2-4.2 [facility] Urea nitrogen/Creatinine [Mass ratio] 18.3 mg/mg 10-20 [facility] - Hematology and Cell countson 01-01-2024 HbA1c (Bld) [Mass fraction] 6.3 % 4.2-6.3 [facility] - Hematology and Cell countsOrdered By: Pamela Diego on 01-01-2024 MCH (RBC) [Entitic mass] 29.8 pg 27.0-32.0 [facility] MCHC (RBC) [Mass/Vol] 34.3 g/dL 32-36 [facility] Nucleated RBC/100 WBC (Bld) [Ratio] 0 % 0-5 [facility] Platelet mean volume (Bld) [Entitic vol] 9.8 fL 6.2-12.0 [facility] Platelets (Bld) [#/Vol] 253 10*3/uL 150-450 [facility] No Panel InformationOrdered By: Pamela Diego on 01-01-2024 Estimated GFR (MDRD) Amer 74 mL/min >60 [facility] Comment on above: GFR Calc Estimated GFR (MDRD) Non-Af Amer 62 mL/min >60 [facility] Comment on above: Non- GFR Calc LDL Cholesterol TNP [facility] Comment on above: Test not performed Prostate Specific Antigen Screen 0.56 ng/mL 0.00-4.00 [facility] Comment on above: This test was perfor med using the TPSA assay method for theAVIcode chemistry system. Values obtained with differentassay methods cannot be used interchangably.When changing PSA assays in the course of monitoring apatient, additional sequential testing should be carriedout to confirm baseline values. VLDL Cholesterol TNP [facility] Comment on above: Test not performed RBC Auto (Bld) [#/Vol]Ordere d By: Pamela Diego on 01-01-2024 RBC (Bld) [#/Vol] 4.87 10*6/uL 4.6-6.2 [facility] Serum or plasma calcium maddy urement (mass/volume)Ordered By: Pamela Diego on 01-01-2024 Calcium [Mass/Vol] 9.1 mg/dL 8.5-10.1 [facility] Serum or plasma creatinine m easurement (mass/volume)Ordered By: Pamela Diego on 01-01-2024 Creatinine [Mass/Vol] 1.26 mg/dL 0.70-1.30 [facility] Comment on above: The validity of the calculated GFR & GFRAA in patients over 70 years has not been determined. Clinical correlation is essential. Serum or plasma urea nitroge n measurement (mass/volume)Ordered By: Pamela Diego on 01-01-2024 Urea nitrogen [Mass/Vol] 23 mg/dL 7-18 [facility] Thin prep Papanicolaou smear with manual screeningOrdered By: Pamela Diego on 01-01-2024 Thin prep Papanicolaou smear with manual screening 3.9 g/dL 3.2-5.0 [facility] Thin prep Papanicolaou smear with manual screening 33 U/L 15-37 [facility] Thin prep Papanicolaou smear with manual screening 7 5-15 [facility] Capillary blood internationa l normalized ratio (INR)Ordered By: Benji Miller on 12-21-2023 INR Coag (BldC) [Relative time] 3.1 [facility] Comment on above: Critical Value > 4.0 Whole blood prothrombin time Ordered By: Benji Miller on 12-21-2023 PT Coag (Bld) [Time] 31.0 s 11.7-14.9 [facility] - CoagulationOrde red By: Benji Miller on 11-23-2023 INR Coag (Bld) [Relative time] 2.6 {INR} [facility] PT Coag (PPP) [Time] 27.9 s 11.7-14.9 [facility] - CoagulationOrde red By: Marcellus Sims on 10-25-2023 INR Coag (Bld) [Relative time] 2.4 {INR} [facility] PT Coag (PPP) [Time] 26.3 s 11.7-14.9 [facility] International normalized rat io (INR) calculationOrdered By: [place] Paul on 09-21-2023 INR Coag (PPP) [Relative time] 2.4 {INR} [facility] - CoagulationOrde red By: [place] Paul on 09-21-2023 PT Coag (PPP) [Time] 26.2 s 11.7-14.9 [facility] INR in Blood by Coagulation assayOrdered By: [place] Paul on 08-22-2023 INR Coag (Bld) [Relative time] 2.9 {INR} [facility] - CoagulationOrde red By: Benji Paul on 08-22-2023 PT Coag (PPP) [Time] 30.3 s 11.7-14.9 [facility] INR in Blood by Coagulation assayOrdered By: Benji Paul on 07-23-2023 INR Coag (Bld) [Relative time] 2.7 {INR} [facility] - CoagulationOrde red By: Benji Paul on 07-23-2023 PT Coag (PPP) [Time] 29.3 s 11.7-14.9 [facility] INR in Blood by Coagulation assayOrdered By: [place] Paul on 06-22-2023 INR Coag (Bld) [Relative time] 2.8 {INR} [facility] - CoagulationOrde red By: [place] Paul on 06-22-2023 PT Coag (PPP) [Time] 29.5 s 11.7-14.9 [facility] INR in Blood by Coagulation assayOrdered By: [place] Paul on 05-25-2023 INR Coag (Bld) [Relative time] 2.5 {INR} [facility] - CoagulationOrde red By: Benji Paul on 05-25-2023 PT Coag (PPP) [Time] 27.2 s 11.7-14.9 [facility] INR in Blood by Coagulation assayOrdered By: Mason[place] Paul on 04-20-2023 INR Coag (Bld) [Relative time] 2.5 {INR} [facility] - CoagulationOrde red By: [place] Paul on 04-20-2023 PT Coag (PPP) [Time] 27.7 s 11.7-14.9 [facility] INR in Blood by Coagulation assayOrdered By: Mason[place] Paul on 03-23-2023 INR Coag (Bld) [Relative time] 2.4 {INR} [facility] - CoagulationOrde red By: Benji Paul on 03-23-2023 PT Coag (PPP) [Time] 26.1 s 11.7-14.9 [facility] - Hematology and Cell countson 03-08-2023 HbA1c (Bld) [Mass fraction] 7.8 % 4.2-6.3 [facility] Basophil percentageOrdered B y: Juan J Brown on 03-02-2023 Basophil percentage 3.1 mg/dL 2.5-4.9 [facility] Glucose Glucometer (dC) [M ass/Vol]Ordered By: Bogdan Hagen on 03-02-2023 Glucose [Mass/Vol] 152 mg/dL 74-106 [facility] Comment on above: MANAGEMENT OF PATIEN T CARE PER NURSING PROTOCOL INR in Blood by Coagulation assayOrdered By: Juan J Brown on 03-02-2023 INR Coag (Bld) [Relative time] 3.3 {INR} [facility] Laboratory - Chemistry and C hemistry - challengeOrdered By: Juan J Brown on 03-02-2023 Magnesium [Mass/Vol] 2.0 mg/dL 1.6-2.6 [facility] - CoagulationOrde red By: Juan J Brown on 03-02-2023 PT Coag (PPP) [Time] 34.3 s 11.7-14.9 [facility] No Panel InformationOrdered By: Juan J Stephanie on 03-02-2023 Thyroid Stimulating Hormone (TSH) 2.58 uIU/mL 0.358-3.74 [facility] Troponin I High Sensitivity 37 pg/mL 3.0-78.0 [facility] Comment on above: Please Note: New Berta t Units and Gender Specific Reference Ranges. For more information see Policy Stat Procedure [place] High Sensitivity Troponin (TNIH) and attachments. No Panel InformationOrdered By: Stephen Mireles on 03-02-2023 Troponin I High Sensitivity 53 pg/mL 3.0-78.0 [facility] Comment on above: Please Note: New Berta t Units and Gender Specific Reference Ranges. For more information see Policy Stat Procedure [place] High Sensitivity Troponin (TNIH) and attachments. Absolute lymphocyte countOrd ered By: Stephen Mireles on 03-01-2023 Lymphocytes Auto (Unsp spec) [#/Vol] 2.57 10*3/uL 0.83-4.51 [facility] Basophil percentageOrdered B y: Stephen Mireles on 03-01-2023 Basophils/100 WBC (Bld) 0.6 % 0-1 [facility] Chloride [Moles/Vol] 104 mmol/L 98-107 [facility] Eosinophils/100 WBC (Bld) 2.7 % 0-5 [facility] Glucose [Mass/Vol] 315 mg/dL 74-106 [facility] Comment on above: Glucose result great er than or equal to 200 mg/dLsuggests DIABETES MELLITUS per A.D.A. criteria. Neutrophils (Bld) [#/Vol] 4.4 10*3/uL 2.0-7.7 [facility] Neutrophils/100 WBC (Bld) 56.3 % 47-70 [facility] Potassium [Moles/Vol] 3.7 mmol/L 3.5-5.1 [facility] Sodium [Moles/Vol] 137 mmol/L 136-145 [facility] WBC (Bld) [#/Vol] 7.9 10*3/uL 4.4-11.0 [facility] Blood erythrocytes count (nu mber/volume)Ordered By: Stephen Mireles on 07-06-2023 RBC (Bld) [#/Vol] 5.00 10*6/uL 4.6-6.2 [facility] Blood hemoglobin measurement (mass/volume)Ordered By: Stephen Mireles on 03-01-2023 Hemoglobin (Bld) [Mass/Vol] 15.4 g/dL 13.0-16.5 [facility] Blood lymphocytes/100 leukoc ytesOrdered By: Stephen Mireles on 03-01-2023 Lymphocytes/100 WBC (Bld) 32.7 % 19-41 [facility] Blood monocytes/100 leukocyt esOrdered By: Stephen Mireles on 03-01-2023 Monocytes/100 WBC (Bld) 7.3 % 0-10 [facility] Blood platelet mean volumeOr dered By: Stephen Mireles on 03-01-2023 Platelet mean volume (Bld) [Entitic vol] 9.5 fL 6.2-12.0 [facility] Determination of erythrocyte mean corpuscular volume (MCV)Ordered By: Stephen Mireles on 03-01-2023 MCV (RBC) [Entitic vol] 88.4 fL 80-94 [facility] Hematocrit Auto (Bld) [Volum e fraction]Ordered By: Stephen Mireles on 03-01-2023 Hematocrit (Bld) [Volume fraction] 44.2 % 40-54 [facility] INR in Blood by Coagulation assayOrdered By: Stephen Mireles on 03-01-2023 INR Coag (Bld) [Relative time] 2.9 {INR} [facility] Laboratory - Chemistry and C hemistry - challengeOrdered By: Stephen Mireles on 03-01-2023 CO2 [Moles/Vol] 25.0 mmol/L 21.0-32.0 [facility] Natriuretic peptide B (Bld) [Mass/Vol] 30.4 pg/mL 0-100 [facility] Urea nitrogen/Creatinine [Mass ratio] 13.2 mg/mg 10-20 [facility] - CoagulationOrde red By: Stephen Mireles on 03-01-2023 PT Coag (PPP) [Time] 30.3 s 11.7-14.9 [facility] Laboratory - Hematology and Cell countsOrdered By: Stephen Mireles on 03-01-2023 Erythrocyte distribution width (RBC) [Entitic vol] 38.6 fL 35.1-43.9 [facility] Erythrocyte distribution width (RBC) [Ratio] 12.0 % 11.6-14.6 [facility] Immature granulocytes/100 WBC (Bld) 0.400 % 0.0-0.9 [facility] Comment on above: IG% - Immature Granu locytes (promyelocytes, myelocytes and metamyelocytes) > 1% indicates that a LEFT SHIFT is Present. MCH (RBC) [Entitic mass] 30.8 pg 27.0-32.0 [facility] Nucleated RBC/100 WBC (Bld) [Ratio] 0 % 0-5 [facility] MCHC Auto (RBC) [Mass/Vol]Or dered By: Stephen Mireles on 03-01-2023 MCHC (RBC) [Mass/Vol] 34.8 g/dL 32-36 [facility] No Panel InformationOrdered By: Stephen Mireles on 03-01-2023 Estimated Creatinine Clearance Calc 61.00 ml/min [facility] Estimated GFR (MDRD) Amer 60 mL/min >60 [facility] Comment on above: GFR Calc Estimated GFR (MDRD) Non-Af Amer 50 mL/min >60 [facility] Comment on above: Non- GFR Calc Platelets bldOrdered By: Brendon Mireles on 03-01-2023 Platelets (Bld) [#/Vol] 215 10*3/uL 150-450 [facility] Serum or plasma calcium maddy urement (mass/volume)Ordered By: Stephen Mireles on 03-01-2023 Calcium [Mass/Vol] 8.9 mg/dL 8.5-10.1 [facility] Serum or plasma creatinine m easurement (mass/volume)Ordered By: Stephen Mireles on 03-01-2023 Creatinine [Mass/Vol] 1.52 mg/dL 0.70-1.30 [facility] Comment on above: The validity of the calculated GFR & GFRAA in patients over 70 years has not been determined. Clinical correlation is essential. Serum or plasma urea nitroge n measurement (mass/volume)Ordered By: Stephen Mireles on 03-01-2023 Urea nitrogen [Mass/Vol] 20 mg/dL 7-18 [facility] Thin prep Papanicolaou smear with manual screeningOrdered By: Stephen Mireles on 03-01-2023 Thin prep Papanicolaou smear with manual screening 8 5-15 [facility] Basophil percentageOrdered B y: Greta Solitario on 02-16-2023 Bilirubin [Mass/Vol] 0.40 mg/dL 0.20-1.00 [facility] Comment on above: For patients on eltr ombopag therapy, use of Dimension [place] TBIL is not recommended. Protein [Mass/Vol] 7.1 g/dL 6.4-8.2 [facility] Direct bilirubinOrdered By: Greta Solitario on 02-16-2023 Bilirubin.direct [Mass/Vol] 0.11 mg/dL 0.00-0.30 [facility] INR in Blood by Coagulation assayOrdered By: Greta Solitario on 02-16-2023 INR Coag (Bld) [Relative time] 3.0 {INR} [facility] Laboratory - Chemistry and C hemistry - challengeOrdered By: Greta Solitario on 02-16-2023 ALP [Catalytic activity/Vol] 110 U/L 45-117 [facility] ALT [Catalytic activity/Vol] 45 U/L 16-61 [facility] Globulin (S) [Mass/Vol] 3.6 g/dL 2.2-4.2 [facility] Laboratory - CoagulationOrde red By: Greta Solitario on 02-16-2023 PT Coag (PPP) [Time] 31.6 s 11.7-14.9 [facility] Serum or plasma albumin maddy urement (mass/volume)Ordered By: Greta Solitario on 02-16-2023 Albumin [Mass/Vol] 3.5 g/dL 3.2-5.0 [facility] Thin prep Papanicolaou smear with manual screeningOrdered By: Greta Solitario on 02-16-2023 Thin prep Papanicolaou smear with manual screening 28 U/L 15-37 [facility] Whole blood hemoglobin A1c/t otal hemoglobin ratio (mass fraction)Ordered By: Greta Solitario on 02-16-2023 HbA1c (Bld) [Mass fraction] 7.7 % 3.8-5.6 [facility] Comment on above: Normal < 5.7 % Predi abetic 5.7 - 6.4 % Diabetic >or= 6.5 % Please note range changes. INR in Blood by Coagulation assayOrdered By: Dr. Miller on 01-18-2023 INR Coag (Bld) [Relative time] 2.6 {INR} [facility] Laboratory - CoagulationOrde red By: Dr. Miller on 01-18-2023 PT Coag (PPP) [Time] 27.8 s 11.7-14.9 [facility] INR in Blood by Coagulation assayOrdered By: Dr. Miller on 12-21-2022 INR Coag (Bld) [Relative time] 2.9 {INR} [facility] Laboratory - CoagulationOrde red By: Dr. Miller on 12-21-2022 PT Coag (PPP) [Time] 29.7 s 11.7-14.9 [facility] INR in Blood by Coagulation assayOrdered By: Dr. Miller on 11-17-2022 INR Coag (Bld) [Relative time] 2.5 {INR} [facility] Laboratory - CoagulationOrde red By: Dr. Miller on 11-17-2022 PT Coag (PPP) [Time] 26.3 s 11.7-14.9 [facility] INR in Blood by Coagulation assayOrdered By: Dr. Miller on 10-19-2022 INR Coag (Bld) [Relative time] 2.5 {INR} [facility] Laboratory - CoagulationOrde red By: Dr. Miller on 10-19-2022 PT Coag (PPP) [Time] 27.0 s 11.7-14.9 [facility] INR in Blood by Coagulation assayOrdered By: Dr. Miller on 09-21-2022 INR Coag (Bld) [Relative time] 2.7 {INR} [facility] Laboratory - CoagulationOrde red By: Dr. Miller on 09-21-2022 PT Coag (PPP) [Time] 28.6 s 11.7-14.9 [facility] INR in Blood by Coagulation assayOrdered By: Dr. Miller on 08-17-2022 INR Coag (Bld) [Relative time] 2.2 {INR} [facility] Laboratory - CoagulationOrde red By: Dr. Miller on 08-17-2022 PT Coag (PPP) [Time] 24.4 s 11.7-14.9 [facility] INR in Blood by Coagulation assayOrdered By: Dr. Miller on 07-13-2022 INR Coag (Bld) [Relative time] 2.0 {INR} [facility] Laboratory - CoagulationOrde red By: Dr. Miller on 07-13-2022 PT Coag (PPP) [Time] 22.7 s 11.7-14.9 [facility] INR in Blood by Coagulation assayOrdered By: Dr. Miller on 06-22-2022 INR Coag (Bld) [Relative time] 1.9 {INR} [facility] Laboratory - CoagulationOrde red By: Dr. Miller on 06-22-2022 PT Coag (PPP) [Time] 21.2 s 11.7-14.9 [facility] INR in Blood by Coagulation assayon 06-08-2022 INR Coag (Bld) [Relative time] 1.9 {INR} [facility] Work Phone: Laboratory - Coagulationon 1 PT Coag (PPP) [Time] 21.4 s 11.7-14.9 [facility] Work Phone: INR in Blood by Coagulation assayOrdered By: Dr. Miller on 06-01-2022 INR Coag (Bld) [Relative time] 1.7 {INR} [facility] Laboratory - CoagulationOrde red By: Dr. Miller on 06-01-2022 PT Coag (PPP) [Time] 20.0 s 11.7-14.9 [facility] Basophil percentageon 2021 Bilirubin [Mass/Vol] 0.40 mg/dL 0.20-1.00 [facility] Work Phone: Comment on above: For patients on eltr ombopag therapy, use of Dimension [place] TBIL is not recommended. Chloride [Moles/Vol] 108 mmol/L 98-107 [facility] Work Phone: Glucose [Mass/Vol] 202 mg/dL 74-106 [facility] Work Phone: Comment on above: Glucose result great er than or equal to 200 mg/dLsuggests DIABETES MELLITUS per A.D.A. criteria. Potassium [Moles/Vol] 3.8 mmol/L 3.5-5.1 [facility] Work Phone: Protein [Mass/Vol] 7.5 g/dL 6.4-8.2 [facility] Work Phone: Sodium [Moles/Vol] 141 mmol/L 136-145 [facility] Work Phone: WBC (Bld) [#/Vol] 10.2 10*3/uL 4.4-11.0 [facility] Work Phone: Blood erythrocytes count (nu mber/volume)on 05-22-2022 RBC (Bld) [#/Vol] 4.91 10*6/uL 4.6-6.2 [facility] Work Phone: Blood hemoglobin measurement (mass/volume)on 05-22-2022 Hemoglobin (Bld) [Mass/Vol] 15.1 g/dL 13.0-16.5 [facility] Work Phone: Blood platelet mean volumeon 05-22-2022 Platelet mean volume (Bld) [Entitic vol] 9.9 fL 6.2-12.0 [facility] Work Phone: Determination of erythrocyte mean corpuscular volume (MCV)on 05-22-2022 MCV (RBC) [Entitic vol] 87.4 fL 80-94 [facility] Work Phone: Hematocrit Auto (Bld) [Volum e fraction]on 05-22-2022 Hematocrit (Bld) [Volume fraction] 42.9 % 40-54 [facility] Work Phone: INR in Blood by Coagulation assayon 05-22-2022 INR Coag (Bld) [Relative time] 1.4 {INR} [facility] Work Phone: Laboratory - Chemistry and C hemistry - challengeon 05-22-2022 ALP [Catalytic activity/Vol] 93 U/L 45-117 [facility] Work Phone: ALT [Catalytic activity/Vol] 69 U/L 16-61 [facility] Work Phone: CO2 [Moles/Vol] 24.0 mmol/L 21.0-32.0 [facility] Work Phone: Globulin (S) [Mass/Vol] 3.9 g/dL 2.2-4.2 [facility] Work Phone: Urea nitrogen/Creatinine [Mass ratio] 16.4 mg/mg 10-20 [facility] Work Phone: Laboratory - Coagulationon 0 05-22-2022 PT Coag (PPP) [Time] 16.8 s 11.7-14.9 [facility] Work Phone: Laboratory - Hematology and Cell countson 05-22-2022 Erythrocyte distribution width (RBC) [Entitic vol] 38.1 fL 35.1-43.9 [facility] Work Phone: Erythrocyte distribution width (RBC) [Ratio] 11.9 % 11.6-14.6 [facility] Work Phone: MCH (RBC) [Entitic mass] 30.8 pg 27.0-32.0 [facility] Work Phone: MCHC Auto (RBC) [Mass/Vol]on 05-22-2022 MCHC (RBC) [Mass/Vol] 35.2 g/dL 32-36 [facility] Work Phone: No Panel Informationon 05-22 Estimated GFR (MDRD) Amer 78 mL/min >60 [facility] Work Phone: Comment on above: GFR Calc Estimated GFR (MDRD) Non-Af Amer 64 mL/min >60 [facility] Work Phone: Comment on above: Non- GFR Calc Thyroid Stimulating Hormone (TSH) 1.58 uIU/mL 0.358-3.74 [facility] Work Phone: Platelets bldon 05-22-2022 Platelets (Bld) [#/Vol] 245 10*3/uL 150-450 [facility] Work Phone: Serum or plasma albumin maddy urement (mass/volume)on 05-22-2022 Albumin [Mass/Vol] 3.6 g/dL 3.2-5.0 [facility] Work Phone: Serum or plasma albumin/glob ulin mass ratioon 05-22-2022 Albumin/Globulin [Mass ratio] 0.9 {ratio} 0.9-2.4 [facility] Work Phone: Serum or plasma calcium maddy urement (mass/volume)on 05-22-2022 Calcium [Mass/Vol] 8.7 mg/dL 8.5-10.1 [facility] Work Phone: Serum or plasma creatinine m easurement (mass/volume)on 05-22-2022 Creatinine [Mass/Vol] 1.22 mg/dL 0.70-1.30 [facility] Work Phone: Comment on above: The validity of the calculated GFR & GFRAA in patients over 70 years has not been determined. Clinical correlation is essential. Serum or plasma urea nitroge n measurement (mass/volume)on 05-22-2022 Urea nitrogen [Mass/Vol] 20 mg/dL 7-18 [facility] Work Phone: Thin prep Papanicolaou smear with manual screeningon 05-22-2022 Thin prep Papanicolaou smear with manual screening 37 U/L 15-37 [facility] Work Phone: Thin prep Papanicolaou smear with manual screening 9 5-15 [facility] Work Phone: Vital Signs Date Time Vital Sign Value Performing Clinician Richard matos 08-12-2024 08:40-0500 Body height 190.5 cm Pamela AUGUSTE Work Phone: [facility] 08-12-2024 08:40-0500 Body mass index (BMI) [Ratio] 37 kg/m2 Pamela Diego [employer] RE[employer] Work Phone: [facility] 08-12-2024 08:40-0500 Body weight 134.26 kg Pamela Diego [employer]PITALITY RE[employer]UITER[employer]C Work Phone: [facility] 08-12-2024 08:40-0500 Diastolic blood pressure 77 mm[Hg] Pamela Diego [employer]PITALITY RECRU[employer]C Work Phone: [facility] 08-12-2024 08:40-0500 Heart rate 64 /min Pamela Diego [employer]PITALITY RE[employer]C Work Phone: [facility] 08-12-2024 08:40-0500 Respiratory rate 16 /min Pamela Diego [employer]PITALITY RECRUITER-C Work Phone: [facility] 08-12-2024 08:40-0500 Systolic blood pressure 139 mm[Hg] Pamela Diego [employer]PITALITY RE[employer]UITER-C Work Phone: [facility] 01-01-2024 19:23-0400 Body height 190.5 cm [employer]ITAL[employer] Pamela Diego HOSPITALITY RECRUITER Work Phone: [facility] 01-01-2024 19:23-0400 Body mass index (BMI) [Ratio] 36.6 kg/m2 [facility] Pamela Diego HOSPITALITY RECRUITER Work Phone: [facility] 01-01-2024 19:23-0400 Body temperature 97.9 [degF] [facility] [employer] Pamela Diego HOSPITALITY RECRUITER Work Phone: [facility] 01-01-2024 19:23-0400 Body weight 132.9 kg [employer] Pamela Diego HOSPITALITY RECRUITER Work Phone: [facility] 01-01-2024 19:23-0400 Diastolic blood pressure 70 mm[Hg] [facility] [employer] Pamela Diego HOSPITALITY RECRUITER Work Phone: [facility] 01-01-2024 19:23-0400 Heart rate 66 /min [employer] Pamela Diego HOSPITALITY RECRUITER Work Phone: [facility] 01-01-2024 19:23-0400 Respiratory rate 18 /min [facility] [employer] Pamela Diego HOSPITALITY RECRUITER Work Phone: [facility] 01-01-2024 19:23-0400 SaO2% (BldA) [Mass fraction] 97 % [employer] Pamela Diego HOSPITALITY RECRUITER Work Phone: [facility] 01-01-2024 19:23-0400 Systolic blood pressure 128 mm[Hg] [facility] [employer] Pamela Diego HOSPITALITY RECRUITER Work Phone: [facility] 12-12-2023 08:50-0400 Body height 190.5 cm [employer]ITAL[employer] Pamela Diego HOSPITALITY RECRUITER Work Phone: [facility] 12-12-2023 08:50-0400 Body mass index (BMI) [Ratio] 35.7 kg/m2 [facility] Pamela Diego HOSPITALITY RECRUITER Work Phone: [facility] 12-12-2023 08:50-0400 Body weight 129.72 kg [employer]C Pamela Diego HOSPITALITY RECRUITER Work Phone: [facility] 12-12-2023 08:50-0400 Diastolic blood pressure 69 mm[Hg] [facility] [employer] Pamela Diego HOSPITALITY RECRUITER Work Phone: [facility] 12-12-2023 08:50-0400 Heart rate 63 /min [facility] Pamela Diego HOSPITALITY RECRUITER Work Phone: [facility] 12-12-2023 08:50-0400 Respiratory rate 18 /min [facility] [employer] Pamela Dieog HOSPITALITY RECRUITER Work Phone: [facility] 12-12-2023 08:50-0400 SaO2% (BldA) [Mass fraction] 96 % [facility] [employer] Pamela Diego HOSPITALITY RECRUITER Work Phone: [facility] 12-12-2023 08:50-0400 Systolic blood pressure 135 mm[Hg] [facility] [employer] Pamela Diego HOSPITALITY RECRUITER Work Phone: 2(672)662-098448 [place] [address] 06-11-2023 08:33-0400 Body height 190.5 cm [employer] Pamela Diego HOSPITALITY RECRUITER Work Phone: 7(957)474-681657 [place] [address] 06-11-2023 08:33-0400 Body mass index (BMI) [Ratio] 36.6 kg/m2 [employer] Pamela Dentonson HOSPITALITY RECRUITER Work Phone: 6(267)679-898157 [place] [address] 06-11-2023 08:33-0400 Body weight 132.9 kg [employer] Pamela Diego HOSPITALITY RECRUITER Work Phone: 0(441)413-579057 [place] [address] 06-11-2023 08:33-0400 Diastolic blood pressure 81 mm[Hg] [facility] [employer] Pamela Diego HOSPITALITY RECRUITER Work Phone: 8(446)430-608657 [place] [address] 06-11-2023 08:33-0400 Heart rate 51 /min [facility] Pamela Diego HOSPITALITY RECRUITER Work Phone: 4(386)001-507257 [place] [address] 06-11-2023 08:33-0400 Respiratory rate 18 /min [facility] [employer] Pamela Diego HOSPITALITY RECRUITER Work Phone: 0(589)866-330057 [place] [address] 06-11-2023 08:33-0400 SaO2% (BldA) [Mass fraction] 95 % [facility] Pamela Diego HOSPITALITY RECRUITER Work Phone: 7(836)[phone] [address] 06-11-2023 08:33-0400 Systolic blood pressure 137 mm[Hg] [facility] [employer] Pamela Diego HOSPITALITY RECRUITER Work Phone: 6(117)073-402248 [place] [address] 03-09-2023 14:23-0400 Body height 190.5 cm [employer] Pamela Diego HOSPITALITY RECRUITER Work Phone: 3(597)517-776357 [place] [address] 03-09-2023 14:23-0400 Body mass index (BMI) [Ratio] 37 kg/m2 [facility] Pamela Dentonson HOSPITALITY RECRUITER Work Phone: 5(639)375-041148 [place] [address] 03-09-2023 14:23-0400 Body weight 134.26 kg [employer] Pamela Diego HOSPITALITY RECRUITER Work Phone: 2(487)204-103848 [place] [address] 03-09-2023 14:23-0400 Diastolic blood pressure 79 mm[Hg] [facility] Pamela Diego HOSPITALITY RECRUITER Work Phone: [facility] 03-09-2023 14:23-0400 Heart rate 57 /min [employer] Pamela Diego HOSPITALITY RECRUITER Work Phone: [facility] 03-09-2023 14:23-0400 Respiratory rate 18 /min [facility] Pamela Diego HOSPITALITY RECRUITER Work Phone: [facility] 03-09-2023 14:23-0400 SaO2% (BldA) [Mass fraction] 97 % [facility] [employer] Pamela Diego HOSPITALITY RECRUITER Work Phone: [facility] 03-09-2023 14:23-0400 Systolic blood pressure 131 mm[Hg] [facility] [employer]C Pamela Diego HOSPITALITY RECRUITER Work Phone: [facility] 03-08-2023 23:21-0400 Body mass index (BMI) [Ratio] 37.2 kg/m2 [facility] Pamela Diego HOSPITALITY RECRUITER Work Phone: [facility] 03-08-2023 23:21-0400 Body temperature 97.7 [degF] [facility] [employer] Pamela Diego HOSPITALITY RECRUITER Work Phone: [facility] 03-08-2023 23:21-0400 Body weight 135.17 kg [employer]ITAL[employer] RE[employer] Pamela Diego HOSPITALITY RECRUITER Work Phone: [facility] 03-08-2023 23:21-0400 Diastolic blood pressure 72 mm[Hg] [facility] [employer]C Pamela Diego HOSPITALITY RECRUITER Work Phone: [facility] 03-08-2023 23:21-0400 Heart rate 80 /min [facility] [employer] Pamela Diego HOSPITALITY RECRUITER Work Phone: [facility] 03-08-2023 23:21-0400 Respiratory rate 18 /min [facility]ITAL[facility] [employer] Pamela Diego HOSPITALITY RECRUITER Work Phone: [facility] 03-08-2023 23:21-0400 SaO2% (BldA) [Mass fraction] 98 % [facility] [employer] Pamela Diego HOSPITALITY RECRUITER Work Phone: [facility] 03-08-2023 23:21-0400 Systolic blood pressure 114 mm[Hg] [facility]ITAL[facility] [employer]C Pamela Diego HOSPITALITY RECRUITER Work Phone: [facility] 03-02-2023 13:25-0400 Heart rate 80 /min [facility] [employer] Pamela Diego HOSPITALITY RECRUITER Work Phone: [facility] 03-02-2023 13:20-0400 Body temperature 97.7 [degF] [facility] [employer] Pamela Diego HOSPITALITY RECRUITER Work Phone: [facility] 03-02-2023 13:20-0400 Diastolic blood pressure 72 mm[Hg] [facility] [employer] Pamela Diego HOSPITALITY RECRUITER Work Phone: [facility] 03-02-2023 13:20-0400 Respiratory rate 14 /min [facility] [employer] Pamela Diego HOSPITALITY RECRUITER Work Phone: [facility] 03-02-2023 13:20-0400 SaO2% (BldA) [Mass fraction] 98 % [facility] [employer] Pamela Diego HOSPITALITY RECRUITER Work Phone: [facility] 03-02-2023 13:20-0400 Systolic blood pressure 114 mm[Hg] [facility] RE[employer]C Pamela Diego HOSPITALITY RECRUITER Work Phone: [facility] 03-02-2023 03:19-0400 Body height 190.5 cm [facility]ITAL[employer] RE[employer] Pamela Diego HOSPITALITY RECRUITER Work Phone: [facility] 03-02-2023 03:19-0400 Body mass index (BMI) [Ratio] 37.1 kg/m2 [facility] [employer] Pamela Diego HOSPITALITY RECRUITER Work Phone: [facility] 03-02-2023 03:19-0400 Body weight 134.8 kg [facility]PITAL[facility] RE[employer]C Pamela Diego HOSPITALITY RECRUITER Work Phone: [facility] 03-02-2023 02:45-0400 Body temperature 98 [degF] [facility] RE[employer] Pamela Diego HOSPITALITY RECRUITER Work Phone: [facility] 03-02-2023 02:45-0400 Diastolic blood pressure 67 mm[Hg] [facility] RE[employer]C Pamela Diego HOSPITALITY RECRUITER Work Phone: [facility] 03-02-2023 02:45-0400 Heart rate 105 /min [facility]ITAL[facility] RE[employer] Pamela Diego HOSPITALITY RECRUITER Work Phone: [facility] 03-02-2023 02:45-0400 Respiratory rate 28 /min [facility]ITAL[facility] RE[employer] Pamela Diego HOSPITALITY RECRUITER Work Phone: [facility] 03-02-2023 02:45-0400 SaO2% (BldA) [Mass fraction] 97 % [facility] [employer] Pamela Diego HOSPITALITY RECRUITER Work Phone: [facility] 03-02-2023 02:45-0400 Systolic blood pressure 138 mm[Hg] [facility]PITAL[facility] RE[employer]U[facility]C Pamela Diego HOSPITALITY RECRUITER Work Phone: [facility] 03-01-2023 22:11-0400 Body height 190.5 cm [facility]PITAL[facility] RE[employer]C Pamela Diego HOSPITALITY RECRUITER Work Phone: [facility] 03-01-2023 22:11-0400 Body mass index (BMI) [Ratio] 37.5 kg/m2 [facility] [employer] Pamela Diego HOSPITALITY RECRUITER Work Phone: [facility] 03-01-2023 22:11-0400 Body weight 136.1 kg [facility]ITAL[employer] RE[employer]C Pamela Diego HOSPITALITY RECRUITER Work Phone: [facility] 02-05-2023 10:17-0400 Body height 190.5 cm [facility]PITAL[employer] RE[employer]C Pamela Diego HOSPITALITY RECRUITER Work Phone: [facility] 02-05-2023 10:17-0400 Body mass index (BMI) [Ratio] 37 kg/m2 [facility] [employer] Pamela Diego HOSPITALITY RECRUITER Work Phone: [facility] 02-05-2023 10:17-0400 Body weight 134.26 kg [facility]ITAL[facility] RE[employer]C Pamela Diego HOSPITALITY RECRUITER Work Phone: 0([phone])[phone] [place] [address] 02-05-2023 10:17-0400 Diastolic blood pressure 75 mm[Hg] [facility] [employer] Pamela Diego HOSPITALITY RECRUITER Work Phone: [facility] 02-05-2023 10:17-0400 Heart rate 61 /min [facility] [employer] Pamela Diego HOSPITALITY RECRUITER Work Phone: 6(667)[phone] [address] 02-05-2023 10:17-0400 Respiratory rate 18 /min [facility] [employer] Pamela Dentonson HOSPITALITY RECRUITER Work Phone: 5(109)[phone] [address] 02-05-2023 10:17-0400 SaO2% (BldA) [Mass fraction] 98 % [facility] [employer] Pamela Diego HOSPITALITY RECRUITER Work Phone: 8(935)081-623248 [place] [address] 02-05-2023 10:17-0400 Systolic blood pressure 136 mm[Hg] [facility] [employer] Pamela Diego HOSPITALITY RECRUITER Work Phone: 5(253)[phone] [place] [address] 08-25-2022 13:15-0500 Body height 190.5 cm [facility]ITAL[employer] Pamela Diego HOSPITALITY RECRUITER Work Phone: 6(930)[phone] [place] [address] 08-25-2022 13:15-0500 Body mass index (BMI) [Ratio] 36.2 kg/m2 [facility] [employer] Pamela Diego HOSPITALITY RECRUITER Work Phone: 0(550)[phone] [place] [address] 08-25-2022 13:15-0500 Body temperature 98.6 [degF] [facility] [employer] Pamela Diego HOSPITALITY RECRUITER Work Phone: 6(361)359-468248 [place] [address] 08-25-2022 13:15-0500 Body weight 131.54 kg [employer] Pamela Dentonson HOSPITALITY RECRUITER Work Phone: 1(472)061-616648 [place] [address] 08-25-2022 13:15-0500 Diastolic blood pressure 58 mm[Hg] [facility] [employer] Pamela Dentonson HOSPITALITY RECRUITER Work Phone: 3(433)[phone] [place] [address] 08-25-2022 13:15-0500 Heart rate 63 /min [facility] [employer] Pamela Dentonson HOSPITALITY RECRUITER Work Phone: [phone] [place] [address] 08-25-2022 13:15-0500 Respiratory rate 16 /min HOSPITALITY RECRUITER-C Pamela Diego HOSPITALITY RECRUITER Work Phone: [facility] 08-25-2022 13:15-0500 SaO2% (BldA) [Mass fraction] 97 % HOSPITALITY RECRUITER-C Pamela Diego HOSPITALITY RECRUITER Work Phone: [facility] 08-25-2022 13:15-0500 Systolic blood pressure 156 mm[Hg] HOSPITALITY RECRUITER-C Pamela Dentonson HOSPITALITY RECRUITER Work Phone: [phone] [place] [address] 08-03-2022 09:14-0500 Body mass index (BMI) [Ratio] 36.8 kg/m2 HOSPITALITY RECRUITER-C Pamela Dentonson HOSPITALITY RECRUITER Work Phone: [phone] [address] 08-03-2022 09:14-0500 Body weight 133.8 kg HOSPITALITY RECRUITER-C Pamela Dentonson HOSPITALITY RECRUITER Work Phone: 5(054)[phone] [address] 08-03-2022 09:14-0500 Diastolic blood pressure 76 mm[Hg] HOSPITALITY RECRUITER-C Pamela Diego HOSPITALITY RECRUITER Work Phone: 3([phone] [place] [address] 08-03-2022 09:14-0500 Heart rate 66 /min HOSPITALITY RECRUITER-C Pamela Dentonson HOSPITALITY RECRUITER Work Phone: 6(211)[phone] [address] 08-03-2022 09:14-0500 Respiratory rate 18 /min HOSPITALITY RECRUITER-C Pamela Dentonson HOSPITALITY RECRUITER Work Phone: [phone] [place] [address] 08-03-2022 09:14-0500 SaO2% (BldA) [Mass fraction] 97 % HOSPITALITY RECRUITER-C Pamela Diego HOSPITALITY RECRUITER Work Phone: [phone] [place] [address] 08-03-2022 09:14-0500 Systolic blood pressure 139 mm[Hg] HOSPITALITY RECRUITER-C Pamela Dentonson HOSPITALITY RECRUITER Work Phone: 5([phone] [place] [address] 05-16-2022 14:20-0400 Body height 190.5 cm HOSPITALITY RECRUITER-C Pamela Diego HOSPITALITY RECRUITER Work Phone: [phone] [place] [address] Work Phone: 05-16-2022 14:20-0400 Body mass index (BMI) [Ratio] 36.5 kg/m2 HOSPITALITY RECRUITER-C Pamela Diego HOSPITALITY RECRUITER Work Phone: [facility] Work Phone: 05-16-2022 14:20-0400 Body weight 132.44 kg HOSPITALITY RECRUITER-C Pamela Diego HOSPITALITY RECRUITER Work Phone: [facility] Work Phone: 05-16-2022 14:20-0400 Diastolic blood pressure 82 mm[Hg] HOSPITALITY RECRUITER-C Pamela Diego HOSPITALITY RECRUITER Work Phone: [facility] Work Phone: 05-16-2022 14:20-0400 Heart rate 71 /min HOSPITALITY RECRUITER-C Pamela Diego HOSPITALITY RECRUITER Work Phone: [facility] Work Phone: 05-16-2022 14:20-0400 Respiratory rate 16 /min HOSPITALITY RECRUITER-C Pamela Diego HOSPITALITY RECRUITER Work Phone: [facility] Work Phone: 05-16-2022 14:20-0400 Systolic blood pressure 168 mm[Hg] HOSPITALITY RECRUITER-C Pamela Diego HOSPITALITY RECRUITER Work Phone: [facility] Work Phone: Encounters Encounter Date Encounter Type Care Provider Facility Start: 03-27-2025 ambulatory Greta REID Facility:[facility] Start: 03-26-2025 End: 03-26-[address] Benji Miller MD -Laboratory Work Phone: Start: 03-26-2025 End: 03-26-2025 ambulatory Pamela Diego HOSPITALITY RECRUITER-C Work Phone: -Laboratory Start: 02-18-2025 End: 02-18-[address] Benji Miller MD -Laboratory Work Phone: Start: 02-18-2025 End: 02-18-2025 ambulatory Pamela Diego HOSPITALITY RECRUITER-C Work Phone: -Laboratory Start: 01-13-2025 End: 01-13-[address] Benji Miller MD -Laboratory Work Phone: Start: 01-13-2025 End: 01-13-2025 ambulatory Pamela Diego HOSPITALITY RECRUITER-C Work Phone: [facility] Work Phone: Start: 12-31-2024 ambulatory Benji Miller Facility:[facility] Start: 12-10-2024 End: 12-24-[address] Benji Miller MD -Laboratory Work Phone: Start: 12-10-2024 End: 12-24-2024 ambulatory Greta Solitario PA Facility:[facility] Start: 11-07-2024 End: 11-07-[address] Bejni Miller MD -Laboratory Work Phone: Start: 11-07-2024 End: 11-07-2024 ambulatory Pamela Diego HOSPITALITY RECRUITER-C Work Phone: [facility] Work Phone: Start: 10-17-2024 End: 10-24-2024 ambulatory Greta REID Facility:[facility] Start: 10-17-2024 End: 10-24-[address] Benji Miller MD -Laboratory Work Phone: Start: 08-28-2024 End: 08-28-[address] Benji Miller MD -Laboratory Work Phone: Start: 08-28-2024 End: 08-28-2024 ambulatory Greta Solitario PA Facility:[facility] Start: 08-12-2024 End: 08-12-[address] Benji Miller MD -[facility] Work Phone: Start: 08-12-2024 End: 08-12-2024 ambulatory Pamela Diego NP Facility:[facility] Start: 08-12-2024 End: 08-12-2024 ambulatory Benji Miller Facility:[facility] Start: 07-28-2024 End: 07-28-[address] Benji Miller MD -Laboratory Work Phone: Start: 07-28-2024 End: 07-28-2024 ambulatory Greta Solitario PA Facility:[facility] Start: 06-24-2024 End: 06-24-2024 ambulatory Greta Solitario PA Facility:[facility] Start: 05-20-2024 End: 05-20-2024 ambulatory Greta Solitario PA Facility:[facility] Start: 04-18-2024 End: 04-18-2024 ambulatory Greta Solitario PA Facility:[facility] Start: 01-01-2024 End: 01-01-2024 ambulatory HOSPITALITY RECRUITER-C Pamela Diego HOSPITALITY RECRUITER Work Phone: [facility] Work Phone: Start: 01-01-2024 End: 01-01-2024 Patient encounter procedure HOSPITALITY RECRUITER-C Pamela Diego HOSPITALITY RECRUITER Work Phone: [facility]-Laboratory, Specimen Work Phone: Start: 12-21-2023 End: 12-25-2023 ambulatory HOSPITALITY RECRUITER-C Pamela Diego HOSPITALITY RECRUITER Work Phone: [facility] Work Phone: Start: 12-21-2023 End: 12-25-2023 Discharged Recurring HOSPITALITY RECRUITER-C Pamela Diego HOSPITALITY RECRUITER Work Phone: [facility]-Laboratory Work Phone: Start: 12-12-2023 End: 12-12-2023 Patient encounter procedure HOSPITALITY RECRUITER-C Pamela Diego HOSPITALITY RECRUITER Work Phone: [facility] Work Phone: Start: 11-23-2023 End: 11-25-2023 ambulatory [facility] Work Phone: Start: 11-23-2023 End: 11-25-2023 Discharged Recurring [facility] Work Phone: Start: 10-25-2023 End: 10-25-2023 ambulatory HOSPITALITY RECRUITER-C Pamela Diego HOSPITALITY RECRUITER Work Phone: [facility] Work Phone: Start: 10-25-2023 End: 10-25-2023 Discharged Recurring HOSPITALITY RECRUITER-C Pamela Diego HOSPITALITY RECRUITER Work Phone: [facility]-Laboratory Work Phone: Start: 09-21-2023 End: 09-21-2023 ambulatory HOSPITALITY RECRUITER-C Pamela Diego HOSPITALITY RECRUITER Work Phone: [facility] Work Phone: Start: 09-21-2023 End: 09-21-2023 Discharged Recurring HOSPITALITY RECRUITER-C Pamela Diego HOSPITALITY RECRUITER Work Phone: [facility]Labor[facility] Work Phone: Start: 08-22-2023 End: 08-26-2023 ambulatory HOSPITALITY RECRUITER-C Pamela Diego HOSPITALITY RECRUITER Work Phone: [facility] Work Phone: Start: 08-22-2023 End: 08-26-2023 Discharged Recurring HOSPITALITY RECRUITER-C Pamela Diego HOSPITALITY RECRUITER [facility] Start: 07-23-2023 End: 07-26-2023 ambulatory HOSPITALITY RECRUITER-C Pamela Diego HOSPITALITY RECRUITER Work Phone: [facility] Work Phone: Start: 07-23-2023 End: 07-26-2023 Discharged Recurring HOSPITALITY RECRUITER-C Pamela Diego HOSPITALITY RECRUITER Work Phone: [facility]Labor[facility] Work Phone: Start: 06-28-2023 End: 06-28-2023 Patient encounter procedure HOSPITALITY RECRUITER-C Pamela Diego HOSPITALITY RECRUITER Work Phone: [facility] Work Phone: Start: 06-22-2023 End: 06-22-2023 ambulatory HOSPITALITY RECRUITER-C Pamela Diego HOSPITALITY RECRUITER Work Phone: [facility] Work Phone: Start: 06-22-2023 End: 06-22-2023 Discharged Recurring HOSPITALITY RECRUITER-C Pamelamaverick Diego HOSPITALITY RECRUITER Work Phone: [facility]Labor[facility] Work Phone: Start: 06-11-2023 End: 06-11-2023 Patient encounter procedure HOSPITALITY RECRUITER-C Pamela Diego HOSPITALITY RECRUITER Work Phone: [facility] Work Phone: Start: 05-25-2023 End: 05-25-2023 ambulatory HOSPITALITY RECRUITER-C Pamela Diego HOSPITALITY RECRUITER Work Phone: [facility] Work Phone: Start: 05-25-2023 End: 05-25-2023 Discharged Recurring HOSPITALITY RECRUITER-C Pamela Diego HOSPITALITY RECRUITER [facility] Start: 04-20-2023 End: 04-20-2023 ambulatory HOSPITALITY RECRUITER-C Pamela Diego HOSPITALITY RECRUITER Work Phone: [facility] Work Phone: Start: 04-20-2023 End: 04-20-2023 Discharged Recurring HOSPITALITY RECRUITER-C Pamela Diego HOSPITALITY RECRUITER Work Phone: [facility]Labor[facility] Work Phone: Start: 03-23-2023 End: 03-26-2023 ambulatory HOSPITALITY RECRUITER-C Pamela Diego HOSPITALITY RECRUITER Work Phone: [facility] Work Phone: Start: 03-23-2023 End: 03-26-2023 Discharged Recurring HOSPITALITY RECRUITER-C Pamela Diego HOSPITALITY RECRUITER Work Phone: [facility]Labor[facility] Work Phone: Start: 03-09-2023 End: 03-09-2023 Patient encounter procedure HOSPITALITY RECRUITER-C Pamelamaverick Diego HOSPITALITY RECRUITER [facility] Phone[facility] Work Phone: Start: 03-02-2023 End: 03-02-2023 Non-patient / Non-visit HOSPITALITY RECRUITER-Sacha Diego HOSPITALITY RECRUITER Work Phone: [facility] Work Phone: Start: 03-02-2023 End: 03-02-2023 Evaluation and management of inpatient HOSPITALITY RECRUITER-C Pamela Diego HOSPITALITY RECRUITER Work Phone: [facility]-Progressive Care Unit Work Phone: Start: 03-02-2023 End: 03-02-2023 observation encounter HOSPITALITY RECRUITER-C Pamela Diego HOSPITALITY RECRUITER Work Phone: [facility] Work Phone: Start: 02-16-2023 End: 02-16-2023 ambulatory HOSPITALITY RECRUITER-C Pamela Diego HOSPITALITY RECRUITER Work Phone: [facility] Work Phone: Start: 02-16-2023 End: 02-16-2023 Discharged Recurring HOSPITALITY RECRUITER-C Pamela Diego HOSPITALITY RECRUITER Work Phone: [facility]Laboratory Work Phone: Start: 02-05-2023 End: 02-05-2023 Patient encounter procedure HOSPITALITY RECRUITER-C Pamela Diego HOSPITALITY RECRUITER Work Phone: [facility] Work Phone: Start: 01-18-2023 End: 01-24-2023 ambulatory [facility] Work Phone: Start: 01-18-2023 End: 01-24-2023 Discharged Recurring [facility]Laboratory Start: 12-21-2022 End: 12-24-2022 Discharged Recurring [facility] Start: 11-17-2022 End: 11-24-2022 ambulatory HOSPITALITY RECRUITER-C Pamela Diego HOSPITALITY RECRUITER Work Phone: [facility] Work Phone: Start: 11-17-2022 End: 11-24-2022 Discharged Recurring HOSPITALITY RECRUITER-C Pamela Diego HOSPITALITY RECRUITER Work Phone: [facility]Laboratory Start: 10-19-2022 End: 10-19-2022 ambulatory HOSPITALITY RECRUITER-C Pamela Diego HOSPITALITY RECRUITER Work Phone: [facility] Work Phone: Start: 10-19-2022 End: 10-19-2022 Discharged Recurring HOSPITALITY RECRUITER-C Pamela Diego HOSPITALITY RECRUITER Work Phone: [facility]Laboratory Start: 09-21-2022 End: 09-21-2022 Patient encounter procedure HOSPITALITY RECRUITER-C Pamela Diego HOSPITALITY RECRUITER Work Phone: [facility] Start: 09-21-2022 End: 09-21-2022 ambulatory HOSPITALITY RECRUITER-C Pamela Diego HOSPITALITY RECRUITER Work Phone: [facility] Work Phone: Start: 09-21-2022 End: 09-21-2022 Discharged Recurring HOSPITALITY RECRUITER-C Pamela Diego HOSPITALITY RECRUITER Work Phone: [facility]Laboratory Start: 09-03-2022 Non-patient / Non-visit HOSPITALITY RECRUITER-C Mirian Diego HOSPITALITY RECRUITER Work Phone: [facility] Start: 08-25-2022 End: 08-25-2022 ambulatory HOSPITALITY RECRUITER-C Pamela Diego HOSPITALITY RECRUITER Work Phone: [facility] Work Phone: Start: 08-25-2022 End: 08-25-2022 Patient encounter procedure HOSPITALITY RECRUITER-C Pamela Diego HOSPITALITY RECRUITER Work Phone: [facility] Start: 08-25-2022 Non-patient / Non-visit HOSPITALITY RECRUITER-C D todd Diego HOSPITALITY RECRUITER Work Phone: [facility] Start: 08-17-2022 End: 08-17-2022 Discharged Recurring HOSPITALITY RECRUITER-C Pamela Dentonson HOSPITALITY RECRUITER [facility] Start: 08-03-2022 End: 08-03-2022 Patient encounter procedure HOSPITALITY RECRUITER-C Pamela Diego HOSPITALITY RECRUITER Work Phone: [facility] Start: 07-13-2022 End: 07-26-2022 ambulatory HOSPITALITY RECRUITER-C Pamela Diego HOSPITALITY RECRUITER Work Phone: [facility] Work Phone: Start: 07-13-2022 End: 07-26-2022 Discharged Recurring HOSPITALITY RECRUITER-C Pamela Diego HOSPITALITY RECRUITER [facility] Start: 06-22-2022 End: 06-22-2022 ambulatory HOSPITALITY RECRUITER-C Pamela Diego HOSPITALITY RECRUITER Work Phone: [facility] Work Phone: Start: 06-22-2022 End: 06-22-2022 Discharged Recurring HOSPITALITY RECRUITER-C Pamela Diego HOSPITALITY RECRUITER [facility] Start: 06-08-2022 Registered Recurring HOSPITALITY RECRUITER-C Pamela Diego HOSPITALITY RECRUITER [facility] Start: 06-01-2022 End: 06-01-2022 ambulatory HOSPITALITY RECRUITER-C Pamela Diego HOSPITALITY RECRUITER Work Phone: [facility] Work Phone: Start: 06-01-2022 End: 06-01-2022 Patient encounter procedure HOSPITALITY RECRUITER-C Pamela Diego HOSPITALITY RECRUITER [facility] Start: 05-22-2022 End: 05-22-2022 ambulatory HOSPITALITY RECRUITER-C Pamela Diego HOSPITALITY RECRUITER Work Phone: [facility] Work Phone: Start: 05-22-2022 End: 05-22-2022 Patient encounter procedure HOSPITALITY RECRUITER-C Pamela Diego HOSPITALITY RECRUITER [facility] Start: 05-16-2022 End: 05-16-2022 Patient encounter procedure HOSPITALITY RECRUITERShelby Diego HOSPITALITY RECRUITER Work Phone: [facility] Procedures Date Procedure Procedure Detail Performing Clinician Start: 03-01-2023 Plain chest X-ray HOSPITALITY RECRUITERShelby Diego NP Work Phone: Start: 08-25-2022 CT angiography of co ronary arteries MOLINA Diego HOSPITALITY RECRUITER Work Phone: Plan of Treatment Date Care Activity Detail Author Start: 08-07-2023 Evaluation of diagno stic study results [facility] Start: 03-02-2023 Patient discharge [facility] Start: 03-02-2023 Care planning and pr oblem solving actions [facility] Start: 03-02-2023 [facility] Start: 03-02-2023 Care planning and pr oblem solving actions [facility] Start: 03-02-2023 Following clinical p athway protocol [facility] Start: 03-02-2023 Assessment of risk o f venous thromboembolism [facility] Start: 03-02-2023 Care regimes management [facility] Start: 03-02-2023 Insertion of cathete r into peripheral vein [facility] Start: 03-02-2023 Measuring intake and output [facility] Start: 03-02-2023 Notification of physician [facility] Start: 03-02-2023 Providing care accor ding to standard [facility] Start: 03-02-2023 Provision of activity privileges [facility] Start: 03-02-2023 [facility] Start: 03-02-2023 Verification routine [facility] Start: 03-02-2023 Admission procedure [facility] Start: 03-01-2023 End: 03-02-[address] [facility] spital Evaluation of diagno stic study results [facility] Magnesium [Mass/volu me] in Serum or Plasma [facility] Patient referral [facility] Work Phone: Prothrombin time [facility] Radionuclide imaging of perfusion of myocardium under exercise stress [facility] Payers Date Payer Category Payer Unknown [id number] 2024 Self-pay [id number] 2023 Unknown [id number] Unknown [id number] Unknown [employer] [id number] Unknown [id number] Unknown [id number] 2.16.8 [id number] Unknown [id number] 2.16.8 [id number] Unknown [id number] 2.16.8 [id number] Unknown [id number] 2.16.8 [id number] Unknown [id number] 2.16.8 [id number] Unknown [id number] 2.16.8 [id number] Unknown [id number] 2.16.8 [id number] Unknown [id number] 2.16.8 [id number] Unknown [id number] 2.16.8 [id number] Unknown [id number] 2.16.8 [id number] Unknown [id number] 2.16.8 [id number] Unknown [id number] 2.16.8 [id number] Unknown [id number] 2.16.8 [id number] Unknown [id number] 2.16.8 [id number] Unknown [id number] 2.16.8 [id number] Social History Date Type Detail Facility Start: 05-16-2022 End: 12-12-2023 Tobacco smoking status [facility] Unknown if ever smoked [facility] Start: 1960 Sex Assigned At Male [facility] Start: 12-12-2023 Tobacco smoking stat us [facility] Ex-smoker (finding) [facility] Start: 11-24-2024 Sex Male (finding) [facility] Goals Date Patient Goal Desired Activity /State Functional Status Date Assessment Result Facility 03-02-2023 Functional status Bedrest [facility] Work Phone: Mental Status Date Assessment Result Facility 03-02-2023 Cognitive function Voice/Name [facility] Work Phone: 03-01-2023 Cognitive function Voice/Name [facility] Work Phone: 08-25-2022 Cognitive function Voice/Name [facility] Work Phone: Clinical Notes 03-02-2023 to 08-12-2024 Note Date & Type Note Facility 08-12-2024 Evaluation note Diagnosis Onset Date Resolution Hyperglycemia due to type 2 diabetes mellitus acute August 12, 2024 8:29am PAF (paroxysmal atrial fibrillation) acute August 12, 2024 8:29am Essential (primary) hypertension chronic August 12, 2024 8:29am Hypertriglyceridemia chronic Dece mb2023 8:29am [facility] Work Phone: 1(695) 186-313707-07-2023 Discharge summary Author Bogdan Hagen [facility] March 02, 2023 4:49pm Note Date/Time March 02, 2023 2:09p m [facility] Medical Records Department [facility] [place] [address] Instructions for Home/Discharge Instructions 03/02/23 1408 MR#: [id number] Acct: [id number] Name: NICOLA HUIZAR Jr. Rep #:[id number] : 1960 62 From: Bogdan Hagen DO PCP: Pamela Diego NP-C Status:ADM VINCENT Discharge Instructions Diet Discharge Diet: - (No concentrated sugar) Activity Discharge Activity: Return to Normal Activity Weight Bearing Status: Full weight bearing Follow Up Care Test Results: Test results from this visit will be discussed in further detail at your follow- up appointment, if applicable. Discharge Plan Admission Admit Date/Time: 03/02/23 02:23 Primary Reason for Your Visit: a-fib with RVR Attending Provider: Bogdan Hagen Primary Care Provider: Pamela Diego NP Consulting Providers: Juan J Brown Discharge Orders/Prescriptions Prescriptions: New metformin 500 mg tablet 500 mg PO BID Qty: 60 0RF Continued lisinopril 20 mg tablet 20 mg PO DAILY Qty: 90 3RF warfarin 5 mg tablet See Rx Instructions .ROUTE .COMPLEX Qty: 90 3RF Protocol: Dose Management Condition: Sunday Dose/Route: 7.5 mg Instruction: 1.5 x 5 mg tablets Condition: Sunday Dose/Route: 7.5 mg Instruction: 1.5 x 5 mg tablets Condition: Sunday Dose/Route: 7.5 mg Instruction: 1.5 x 5 mg tablets Condition: Sunday Dose/Route: 7.5 mg Instruction: 1.5 x 5 mg tablets Condition: Dose/Route: 7.5 mg Instruction: 1.5 x 5 mg tablets Condition: Sunday Dose/Route: 7.5 mg Instruction: 1.5 x 5 mg tablets Condition: Sunday Dose/Route: 7.5 mg Instruction: 1.5 x 5 mg tablets Protocol Text: Adjustment Start Date: Sunday02/16/23 INR Value: 3.0 INR Date: 02/16/23 Recheck Date: 03/16/23 Dose Instruction: take 1 tablet by mouth once daily Rx Instructions: take one and one half tablet (7.5mg) by mouth once daily Changed flecainide 100 mg tablet 150 mg PO Q12H Qty: 180 3RF metoprolol succinate 25 mg tablet extended release 24 hr 50 mg PO BIDCM Qty: 90 3RF Referrals / Follow Up: [facility] [Provider Group] - 03/09/23 2:30 pm Pamela Diego NP, HOSPITALITY RECRUITER-C [Primary Care Provider] - See Referral Note (10 days for diabetes follow-up) Disposition Disposition (needs filled in before D/C Order can be placed): Home, Self Care 03/02/23 1649<Electronically signed by Bogdan Hagen DO>Bogdan Hagen DO CC: MOLINA Diego; Dr. Juan J Brown MD ~ Signed [facility] Work Phone: 1(445) 187-929407-07-2023 Hospital Discharge instructions Additional Instructions [facility]: [facility]: 1(546) 903-842907-07-2023 History and physical note Author Juan J Brown [facility] March 02, 2023 6:17am Note Date/Time March 02, 2023 2:06a m [facility] Medical Records Department [address] [place] [id number] H&P Exam - Hospitalist 03/02/23 0206 MR#: [id number] Acct: [id number] Name: NICOLA HUIZAR Jr. Rep #:[id number] : 1960 62 From: Juan J Brown MD PCP: MOLINA Graham Status:ADM VINCENT Location: [place] [address] HPI - General General Date of Admission: 03/02/23 Date of Service: 03/02/23 Chief Complaint: Palpitation HPI Narrative NICOLA HUIZAR, is a 62 M with a significant history of atrial fibrillation who presents emergency department with palpitations that started on the same day of presentation. Associated with his symptoms is chest pain; epigastric pain. Further he had pain radiating to his left arm. Associated with his symptoms is shortness of breath. During this time he tried to go and work back on a pool athis home when he had some relief. However that brought his pain back on. 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 Malignant hypertension Nicotine dependence in remission Obesity PAF (paroxysmal atrial fibrillation) Pain in right buttock Rapid palpitations Right bundle branch block (RBBB) Snoring Traumatic ecchymosis of buttock Home Medications metoprolol succinate 25 mg tablet,extended release 24 hr 25 mg PO DAILY #90 tabs05/16/22 [Rx Last Taken Unknown] warfarin 5 mg tablet See Rx Instructions .Route .COMPLEX #90 tabs 01/23/23 [Rx Last Taken Unknown] flecainide 100 mg tablet 100 mg PO Q12H #180 tabs 02/05/23 [Rx Last Taken Unknown] lisinopril 20 mg tablet 20 mg PO DAILY #90 tabs 02/05/23 [Rx Last Taken Unknown] Allergy/AdvReac Type Severity Reaction Status Date / Time Penicillins [PCN] Allergy Rash Verified 03/01/23 22:13 Family History Mother Cancer lymphoma Father Hypertension Brother Diabetes Sister Irregular heart beat RFA Other Lymphoma Surgical History Effusion, right knee H/O shoulder surgery Social History Smoking Status: Former smoker quit date: 08/19/17 pack-years: 35 alcohol intake: current alcohol intake frequency: holidays/special occasions only substance use type: does not use caffeine: Yes Type: coffee Number of servings: 3 ROS ROS Narrative Pertinent positives and pertinent negatives as noted in HPI. All other systems were reviewed and are negative Vital Signs Vital Signs Vital Signs: 03/01/23 22:11 03/01/23 22:11 03/01/23 22:57 Temperature 97.9 F Temperature Source Temporal Pulse Rate 71 149 H 120 H Respiratory Rate 18 17 Blood Pressure 199/83 H 145/91 H Blood Pressure Mean 121 109 Pulse Ox 97 96 Oxygen Delivery Method Room Air Room Air 03/01/23 23:02 03/01/23 23:25 03/02/23 00:04 Temperature Temperature Source Pulse Rate 115 H 113 H Respiratory Rate 20 H 14 Blood Pressure 162/93 H 122/73 H Blood Pressure Mean 116 89 Pulse Ox 95 96 97 Oxygen Delivery Method Room Air Room Air Weight Weight: 136.1 kg Body Mass Index (BMI) 37.5 Physical Exam Narrative Physical exam: General: Well-nourished, well-developed. Head: Normocephalic, atraumatic, no tenderness Eyes: Vision is grossly intact. EOMI ENT, no trauma, moist mucous membranes, no rhinorrhea Neck: Nontender, No thyromegaly. CVS: Irregularly irregular rate and rhythm. S1-S2 present. No murmur, gallop or rub. Respiratory : clear to auscultation bilaterally, chest wall nontender Abdomen: Soft, nontender, nondistended, normal bowel sounds, no masses : Deferred Back: Nontender, no CVA tenderness, no midline spinal tenderness, deformities, step-offs Extremities: Nontender full range of motion, no trauma Skin: Normal color, no trauma, abrasions Neuro: Alert, oriented, cranial nerves II through XII grossly intact. Psychiatry: Normal mood. Normal affect. Not depressed. Not anxious. Results Lab / Micro Data 03/01/23 22:35 03/01/23 22:35 Labs: Laboratory Results - last 24 hr 03/01/23 22:35: WBC 7.9, RBC 5.00, Hgb 15.4, Hct 44.2, MCV 88.4, MCH 30.8, MCHC 34.8, RDW Std Deviation 38.6, RDW Coeff of Alin 12.0, Plt Count 215, MPV 9.5, Immature Gran % (Auto) 0.400, Neut % (Auto) 56.3, Lymph % (Auto) 32.7, [place] % (Auto) 7.3, Eos % (Auto) 2.7, Baso % (Auto) 0.6, Absolute Neuts (auto) 4.4, Absolute Lymphs (auto) 2.57, Nucleated RBC % 0, PT 30.3 H, INR 2.9, Sodium 137, Potassium 3.7, Chloride 104, Carbon Dioxide 25.0, Anion Gap 8, BUN 20 H, Creatinine 1.52 H, Estim Creat Clear Calc 61.00, Est GFR (MDRD) Af Amer 60, Est GFR (MDRD) Non-Af 50 L, BUN/Creatinine Ratio 13.2, Glucose 315 H, Calcium 8.9, Troponin I High Sens 9, B-Natriuretic Peptide 30.4 03/02/23 00:58: Troponin I High Sens 53 Radiology Impression Chest X-Ray 03/01/23 22:55 IMPRESSION: No evidence of active intrathoracic disease. Electronically Signed: Paulette Andrews MD at 23:16 EDT , Assessment & Plan Assessment/Plan (1) PAF (paroxysmal atrial fibrillation): (2) 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: (3) Hypercoagulability due to atrial fibrillation: QUALIFIERS: Atrial fibrillation type: paroxysmal Qualified Code(s): D68.69 - Other thrombophilia; I48.0 - Paroxysmal atrial fibrillation PLAN: Plan A-fib with RVR Chest x-ray independently interpreted by me and radiologist showed no acute process. Place on PCU on telemetry Initial high sensitivity troponin 9; repeat 53. It was trended to 37. Obtain echo On Coumadin and is therapeutic. Continue Coumadin. Trend INR. Flecainide and metoprolol continued. Received Cardizem bolus in the emergency department and was started on a drip. Cardizem drip continued. Potassium 3.7. Discussed with ED doctor to replace. Trend potassium. Check magnesium. Chest x-ray Recheck the labs in the a.m. including a lipid panel. Newly diagnosed diabetes mellitus A1c on 02/16/2023 was 7.7 Accu-Cheks requested scale insulin ordered. DVT prophylaxis: Not indicated as patient is therapeutic on home warfarin. Charges/Coding Visit Charges Inpatient E&M: 80478 Init Hosp L3 03/02/23 0617 <Electronically signed by Juan J Brown MD> Cosigner Signature (if applicable): CC: MOLINA Diego; Dr. Juan J Brown MD~ Signed [facility] Work Phone: 1(880) 810-465407-07-2023 Discharge summary Author Stephen Mireles [facility] March 02, 2023 2:57am Note Date/Time March 01, 2023 11:20 pm [facility] Medical Records Department [address] [place] [address] Emergency Department Summary 03/01/23 MR#: [id number] Acct: [id number] Name: NICOLA HUIZAR Jr. Rep #:[id number] : 1960 62 From: Stephen Mireles DO PCP: MOLINA Graham Status:ADM VINCENT Location: [address] History of Present Illness Chief Complaint: Palpitations Narrative Narrative: 62-year-old male with history of atrial fibrillation which is paroxysmal on flecainide and metoprolol presenting with palpitations. He states that about 9:00 he noticed the palpitations started. He states he was trying to cover his pool and noticed he started having chest pain which she describes as tightness across his chest with radiation to the left arm. This lasted about 15 to 20 minutes. Patient still currently feels palpitations. Patient states that typically he will be able to sit and breathe through fast heart rates. He denies fever or chills. Has cough. He states other than the A-fib he does not have any cardiac history. He notes that he recently had an elevated A1c which was in the 7.5 range. He also has history of hyperlipidemia. [facility] Medical History Bifascicular block Cardiac arrhythmia Dysuria Essential (primary) hypertension GERD (gastroesophageal reflux disease) Hypertriglyceridemia group home 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 Malignant hypertension Nicotine dependence in remission Obesity PAF (paroxysmal atrial fibrillation) Pain in right buttock Rapid palpitations Right bundle branch block (RBBB) Snoring Traumatic ecchymosis of buttock Home Medications metoprolol succinate 25 mg tablet,extended release 24 hr 25 mg PO DAILY #90 tabs05/16/22 [Rx Last Taken Unknown] warfarin 5 mg tablet See Rx Instructions .Route .COMPLEX #90 tabs 01/23/23 [Rx Last Taken Unknown] flecainide 100 mg tablet 100 mg PO Q12H #180 tabs 02/05/23 [Rx Last Taken Unknown] lisinopril 20 mg tablet 20 mg PO DAILY #90 tabs 02/05/23 [Rx Last Taken Unknown] Allergy/AdvReac Type Severity Reaction Status Date / Time Penicillins [PCN] Allergy Rash Verified 03/01/23 22:13 Family History Mother Cancer lymphoma Father Hypertension Brother Diabetes Sister Irregular heart beat RFA Other Lymphoma Surgical History Effusion, right knee H/O shoulder surgery Social History Smoking Status: Former smoker quit date: 08/19/17 pack-years: 35 alcohol intake: current alcohol intake frequency: holidays/special occasions only substance use type: does not use caffeine: Yes Type: coffee Number of servings: 3 ROS ROS ED Constitutional Constitutional ED: Denies chills, fever(s) or sweats Eyes Eyes: Denies blurry vision or change in vision ENT ENT ED: Denies ear pain or sore throat Cardiovascular Cardiovascular: Reports chest pain, palpitations and racing heartbeat Respiratory/Chest Respiratory/Chest: Denies cough, dyspnea or sputum Gastrointestinal Gastrointestinal: Denies abdominal pain, constipation, diarrhea, nausea or vomiting Genitourinary Genitourinary ED: Denies dysuria, hematuria or urinary frequency Musculoskeletal Musculoskeletal: Denies arthralgias, myalgias or neck pain Integumentary Denies abscess, Abrasions or rash Neurologic Neurologic: Denies headache(s), paresthesias or weakness Psychiatric Psychiatric: Denies anxiety, depression, suicidal ideation or suicidal thoughts Endocrine Endocrinology: Denies polydipsia or polyuria EXAM Physical Exam Const Vital Signs: 03/01/23 22:11 03/01/23 22:11 03/01/23 22:57 Temperature 97.9 F Temperature Source Temporal Pulse Rate 71 149 H 120 H Respiratory Rate 18 17 Blood Pressure 199/83 H 145/91 H Blood Pressure Mean 121 109 Pulse Ox 97 96 Oxygen Delivery Method Room Air Room Air 03/01/23 23:02 03/01/23 23:25 03/02/23 00:04 Temperature Temperature Source Pulse Rate 115 H 113 H Respiratory Rate 20 H 14 Blood Pressure 162/93 H 122/73 H Blood Pressure Mean 116 89 Pulse Ox 95 96 97 Oxygen Delivery Method Room Air Room Air 03/02/23 02:13 Temperature Temperature Source Pulse Rate 113 H Respiratory Rate 18 Blood Pressure 132/70 H Blood Pressure Mean 90 Pulse Ox 97 Oxygen Delivery Method Room Air Positive well nourished General Appearance ED: NAD; Negative for pallor HEENT Reports moist mucous membranes normocephalic and atraumatic Eyes PERRL and EOMs intact bilaterally Resp normal respiratory effort and clear to auscultation bilaterally Cardio Rate: tachycardic Rhythm: abnormal rhythm irregularly irregular GI normal to inspection, nondistended, normoactive bowel sounds Extremity normal to inspection Neuro CN's II-XII intact bilaterally Sensorium / Orientation: awake and alert Motor Exam: strength 5/5 throughout Psych mental status grossly normal Skin no rashes or lesions noted General Skin Exam: Negative for jaundice or pallor MDM MDM MDM Narrative Medical decision making narrative: 62-year-old male with history of paroxysmal A-fib on Coumadin and flecainide. He states he does not have a history of CAD and has had no [place] or cardiac stents done. He does state that he felt his heart rate racing and then he developed some chest pain which radiated to the left arm. Has not had this before. EKG was obtained which shows A-fib with rapid ventricular response at 137 bpm. No evidence of ischemia. Chest x-ray my interpretation shows no acute cardiopulmonary process. The radiologist services and agrees. BC is unremarkable. BMP shows elevated creatinine 1.52 which is new for him. Patient was given a liter of IV fluids and 25 of Cardizem to slow down his heart rate. Initial troponin was 9. BNP 30.4. Patient's INR is 2.9 so a low suspicion for PE. Delta troponin came up at 53 and for this reason I think the patient warrants admission given his risk factors and his chest pain. In addition to this the patient was given a second dose of 50 mg of Cardizem because his heart rate was still fluctuating between 100-130 bpm. Patient started on Cardizem drip. Will discuss with the hospitalist. Impression: 1. A-fib with RVR 2. Chest pain Lab Data Labs: Laboratory Results - last 24 hr 03/01/23 03/02/23 22:35 00:58 WBC 7.9 RBC 5.00 Hgb 15.4 Hct 44.2 MCV 88.4 MCH 30.8 MCHC 34.8 RDW Std Deviation 38.6 RDW Coeff of Alin 12.0 Plt Count 215 MPV 9.5 Immature Gran % (Auto) 0.400 Neut % (Auto) 56.3 Lymph % (Auto) 32.7 [place] % (Auto) 7.3 Eos % (Auto) 2.7 Baso % (Auto) 0.6 Absolute Neuts (auto) 4.4 Absolute Lymphs (auto) 2.57 Nucleated RBC % 0 PT 30.3 H INR 2.9 Sodium 137 Potassium 3.7 Chloride 104 Carbon Dioxide 25.0 Anion Gap 8 BUN 20 H Creatinine 1.52 H Estim Creat Clear Calc 61.00 Est GFR (MDRD) Af Amer 60 Est GFR (MDRD) Non-Af 50 L BUN/Creatinine Ratio 13.2 Glucose 315 H Calcium 8.9 Troponin I High Sens 9 53 B-Natriuretic Peptide 30.4 Radiography Diagnostic Testing: Clinical Impression(s) from Imaging Studies Chest X-Ray 03/01/23 22:55 IMPRESSION: No evidence of active intrathoracic disease. Electronically Signed: Paulette Andrews MD at 23:16 EDT , Discharge Plan Triage Chief Complaint: Palpitations ED Provider: Stephen Mireles Dx/Rx/DC Orders Primary Care Provider: Pamela Diego NP What to do if you have Problems For any increased pain, shortness of breath, bleeding, nausea or vomiting, chest pain, or any unexpected problems, contact your Primary Care Provider. Call [facility] ([phone]) or report to the closest Emergency Room. Call 911 if necessary. 03/02/23256 <Electronically signed by Stephen Mireles DO> Cosigner Signature (if applicable): CC: LINDY-C Pamela Diego ~ Signed [facility] Work Phone: 1(480) 471-197007-07-2023 Discharge summary Author Stephen Mireles [facility] March 02, 2023 2:57am Note Date/Time March 01, 2023 11:20 pm [facility] Medical Records Department [address] [place] [address] Emergency Department Summary 03/01/23 MR#: [id number] Acct: [id number] Name: NICOLA HUIZAR JrRolando Rep #:[id number] : 1960 62 From: Stephen Mireles DO PCP: MOLINA Graham Status:ADM VINCENT Location: [place] [address] HPI History of Present Illness Chief Complaint: Palpitations Narrative Narrative: 62-year-old male with history of atrial fibrillation which is paroxysmal on flecainide and metoprolol presenting with palpitations. He states that about 9:00 he noticed the palpitations started. He states he was trying to cover his pool and noticed he started having chest pain which she describes as tightness across his chest with radiation to the left arm. This lasted about 15 to 20 minutes. Patient still currently feels palpitations. Patient states that typically he will be able to sit and breathe through fast heart rates. He denies fever or chills. Has cough. He states other than the A-fib he does not have any cardiac history. He notes that he recently had an elevated A1c which was in the 7.5 range. He also has history of hyperlipidemia. 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 Malignant hypertension Nicotine dependence in remission Obesity PAF (paroxysmal atrial fibrillation) Pain in right buttock Rapid palpitations Right bundle branch block (RBBB) Snoring Traumatic ecchymosis of buttock Home Medications metoprolol succinate 25 mg tablet,extended release 24 hr 25 mg PO DAILY #90 tabs05/16/22 [Rx Last Taken Unknown] warfarin 5 mg tablet See Rx Instructions .Route .COMPLEX #90 tabs 01/23/23 [Rx Last Taken Unknown] flecainide 100 mg tablet 100 mg PO Q12H #180 tabs 02/05/23 [Rx Last Taken Unknown] lisinopril 20 mg tablet 20 mg PO DAILY #90 tabs 02/05/23 [Rx Last Taken Unknown] Allergy/AdvReac Type Severity Reaction Status Date / Time Penicillins [PCN] Allergy Rash Verified 03/01/23 22:13 Family History Mother Cancer lymphoma Father Hypertension Brother Diabetes Sister Irregular heart beat RFA Other Lymphoma Surgical History Effusion, right knee H/O shoulder surgery Social History Smoking Status: Former smoker quit date: 08/19/17 pack-years: 35 alcohol intake: current alcohol intake frequency: holidays/special occasions only substance use type: does not use caffeine: Yes Type: coffee Number of servings: 3 ROS ROS ED Constitutional Constitutional ED: Denies chills, fever(s) or sweats Eyes Eyes: Denies blurry vision or change in vision ENT ENT ED: Denies ear pain or sore throat Cardiovascular Cardiovascular: Reports chest pain, palpitations and racing heartbeat Respiratory/Chest Respiratory/Chest: Denies cough, dyspnea or sputum Gastrointestinal Gastrointestinal: Denies abdominal pain, constipation, diarrhea, nausea or vomiting Genitourinary Genitourinary ED: Denies dysuria, hematuria or urinary frequency Musculoskeletal Musculoskeletal: Denies arthralgias, myalgias or neck pain Integumentary Denies abscess, Abrasions or rash Neurologic Neurologic: Denies headache(s), paresthesias or weakness Psychiatric Psychiatric: Denies anxiety, depression, suicidal ideation or suicidal thoughts Endocrine Endocrinology: Denies polydipsia or polyuria EXAM Physical Exam Const Vital Signs: 03/01/23 22:11 03/01/23 22:11 03/01/23 22:57 Temperature 97.9 F Temperature Source Temporal Pulse Rate 71 149 H 120 H Respiratory Rate 18 17 Blood Pressure 199/83 H 145/91 H Blood Pressure Mean 121 109 Pulse Ox 97 96 Oxygen Delivery Method Room Air Room Air 03/01/23 23:02 03/01/23 23:25 03/02/23 00:04 Temperature Temperature Source Pulse Rate 115 H 113 H Respiratory Rate 20 H 14 Blood Pressure 162/93 H 122/73 H Blood Pressure Mean 116 89 Pulse Ox 95 96 97 Oxygen Delivery Method Room Air Room Air 03/02/23 02:13 Temperature Temperature Source Pulse Rate 113 H Respiratory Rate 18 Blood Pressure 132/70 H Blood Pressure Mean 90 Pulse Ox 97 Oxygen Delivery Method Room Air Positive well nourished General Appearance ED: NAD; Negative for pallor HEENT Reports moist mucous membranes normocephalic and atraumatic Eyes PERRL and EOMs intact bilaterally Resp normal respiratory effort and clear to auscultation bilaterally Cardio Rate: tachycardic Rhythm: abnormal rhythm irregularly irregular GI normal to inspection, nondistended, normoactive bowel sounds Extremity normal to inspection Neuro CN's II-XII intact bilaterally Sensorium / Orientation: awake and alert Motor Exam: strength 5/5 throughout Psych mental status grossly normal Skin no rashes or lesions noted General Skin Exam: Negative for jaundice or pallor MDM MDM MDM Narrative Medical decision making narrative: 62-year-old male with history of paroxysmal A-fib on Coumadin and flecainide. He states he does not have a history of CAD and has had no [place] or cardiac stents done. He does state that he felt his heart rate racing and then he developed some chest pain which radiated to the left arm. Has not had this before. EKG was obtained which shows A-fib with rapid ventricular response at 137 bpm. No evidence of ischemia. Chest x-ray my interpretation shows no acute cardiopulmonary process. The radiologist services and agrees. BC is unremarkable. BMP shows elevated creatinine 1.52 which is new for him. Patient was given a liter of IV fluids and 25 of Cardizem to slow down his heart rate. Initial troponin was 9. BNP 30.4. Patient's INR is 2.9 so a low suspicion for PE. Delta troponin came up at 53 and for this reason I think the patient warrants admission given his risk factors and his chest pain. In addition to this the patient was given a second dose of 50 mg of Cardizem because his heart rate was still fluctuating between 100-130 bpm. Patient started on Cardizem drip. Will discuss with the hospitalist. Impression: 1. A-fib with RVR 2. Chest pain Lab Data Labs: Laboratory Results - last 24 hr 03/01/23 03/02/23 22:35 00:58 WBC 7.9 RBC 5.00 Hgb 15.4 Hct 44.2 MCV 88.4 MCH 30.8 MCHC 34.8 RDW Std Deviation 38.6 RDW Coeff of Alin 12.0 Plt Count 215 MPV 9.5 Immature Gran % (Auto) 0.400 Neut % (Auto) 56.3 Lymph % (Auto) 32.7 [place] % (Auto) 7.3 Eos % (Auto) 2.7 Baso % (Auto) 0.6 Absolute Neuts (auto) 4.4 Absolute Lymphs (auto) 2.57 Nucleated RBC % 0 PT 30.3 H INR 2.9 Sodium 137 Potassium 3.7 Chloride 104 Carbon Dioxide 25.0 Anion Gap 8 BUN 20 H Creatinine 1.52 H Estim Creat Clear Calc 61.00 Est GFR (MDRD) Af Amer 60 Est GFR (MDRD) Non-Af 50 L BUN/Creatinine Ratio 13.2 Glucose 315 H Calcium 8.9 Troponin I High Sens 9 53 B-Natriuretic Peptide 30.4 Radiography Diagnostic Testing: Clinical Impression(s) from Imaging Studies Chest X-Ray 03/01/23 22:55 IMPRESSION: No evidence of active intrathoracic disease. Electronically Signed: Paulette Andrews MD at 23:16 EDT , Discharge Plan Triage Chief Complaint: Palpitations ED Provider: Stephen Mireles Dx/Rx/DC Orders Primary Care Provider: Pamela Diego NP What to do if you have Problems For any increased pain, shortness of breath, bleeding, nausea or vomiting, chest pain, or any unexpected problems, contact your Primary Care Provider. Call [facility] ([phone]) or report to the closest Emergency Room. Call 911 if necessary. 03/02/23256 <Electronically signed by Stephen Mireles DO> Cosigner Signature (if applicable): CC: HOSPITALITY RECRUITERShelby Diego ~ Signed [facility] Work Phone: Evaluation note* Diagnosis Onset Date Resolution Status PAF (paroxysmal atrial fibrillation) acute Essential (primary) hypertension chronic [facility] Work Phone: Evaluation note* Diagnosis Onset Date Resolution Status PAF (paroxysmal atrial fibrillation) acute Essential (primary) hypertension chronic PAF (paroxysmal atrial fibrillation) acute Essential (primary) hypertension chronic [facility] Work Phone: Evaluation noteNo assessment information available [facility] Work Phone: Evaluation note* Diagnosis Onset Date Resolution Status PAF (paroxysmal atrial fibrillation) acute Essential (primary) hypertension chronic Hypertriglyceridemia chronic [facility] Work Phone: Evaluation note* Diagnosis Onset Date Resolution Status PAF (paroxysmal atrial fibrillation) acute Essential (primary) hypertension chronic Hypertriglyceridemia chronic Hypercoagulability due to atrial fibrillation acute group home 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 acute PAF (paroxysmal atrial fibrillation) acute [facility] Work Phone: Evaluation note* Diagnosis Onset Date Resolution Status PAF (paroxysmal atrial fibrillation) acute Essential (primary) hypertension chronic Hypertriglyceridemia chronic group home 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 acute PAF (paroxysmal atrial fibrillation) acute Hyperglycemia due to type 2 diabetes mellitus acute PAF (paroxysmal atrial fibrillation) acute PAF (paroxysmal atrial fibrillation) acute Essential (primary) hypertension chronic Hypertriglyceridemia [facility] Work Phone: Evaluation note* Diagnosis Onset Date Resolution Status 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 acute PAF (paroxysmal atrial fibrillation) acute Hyperglycemia due to type 2 diabetes mellitus acute PAF (paroxysmal atrial fibrillation) acute PAF (paroxysmal atrial fibrillation) acute Essential (primary) hypertension chronic Hypertriglyceridemia chronic PAF (paroxysmal atrial fibrillation) acute Essential (primary) hypertension chronic Hypertriglyceridemia [facility] Work Phone: Evaluation note* Diagnosis Onset Date Resolution Status PAF (paroxysmal atrial fibrillation) acute Essential (primary) hypertension chronic Hypertriglyceridemia chronic Hyperglycemia due to type 2 diabetes mellitus acute Essential (primary) hypertension chronic Hypertriglyceridemia [facility] Work Phone: Reason for referral (narrative)No reason for referral information availableW[facility] Work Phone: Chief Complaint and Reason for Visit Chief Complaint overdue for OV fu/ c alled with High HR concerns EORDER Reason for Visit PAF (paroxysmal atri al fibrillation) Essential (primary) hypertension Chief Complaint overdue for OV fu/ c alled with High HR concerns EORDER E ORDER Reason for Visit PAF (paroxysmal atri al fibrillation) Essential (primary) hypertension Chief Complaint overdue for OV fu/ c alled with High HR concerns EORDER E ORDER 3 M FU Unspecified right bundle-branch block Reason for Visit PAF (paroxysmal atri al fibrillation) Essential (primary) hypertension PAF (paroxysmal atrial fibrillation) Essential (primary) hypertension Chief Complaint E ORDER 3 M FU Unspecified right bundle-branch block Unspecified right bundle-branch block INR EKG - STARTING FLECAINIDE Reason for Visit PAF (paroxysmal atri al fibrillation) Essential (primary) hypertension Chief Complaint 3 M FU Chest pain Unspecified right bundle-branch block Unspecified right bundle-branch block INR EKG - STARTING FLECAINIDE INR Reason for Visit PAF (paroxysmal atri al fibrillation) Essential (primary) hypertension Chief Complaint 3 M FU Chest pain Unspecified right bundle-branch block Unspecified right bundle-branch block INR EKG - STARTING FLECAINIDE INR INR Reason for Visit PAF (paroxysmal atri al fibrillation) Essential (primary) hypertension Chief Complaint INR INR INR INR Chief Complaint INR INR INR 3 M FU INR Reason for Visit PAF (paroxysmal atri al fibrillation) Essential (primary) hypertension Hypertriglyceridemia Chief Complaint INR INR INR 3 M FU INR A-FIB WITH RVR Reason for Visit PAF (paroxysmal atri al fibrillation) Essential (primary) hypertension Hypertriglyceridemia Chief Complaint INR INR INR 3 M FU INR A-FIB WITH RVR Reason for Visit PAF (paroxysmal atri al fibrillation) Essential (primary) hypertension Hypertriglyceridemia Hypercoagulability due to atrial fibrillation group home 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 PAF (paroxysmal atrial fibrillation) Chief Complaint INR INR 3 M FU INR A-FIB WITH RVR F/up from hospital & A1c S/P WC 7-7-23 PER MMM INR Reason for Visit PAF (paroxysmal atri al fibrillation) Essential (primary) hypertension Hypertriglyceridemia 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 PAF (paroxysmal atrial fibrillation) Hyperglycemia due to type 2 diabetes mellitus PAF (paroxysmal atrial fibrillation) PAF (paroxysmal atrial fibrillation) Essential (primary) hypertension Hypertriglyceridemia Chief Complaint INR 3 M FU INR A-FIB WITH RVR AM EKG F/up from hospital & A1c S/P [facility] 7-7-23 PER MMM INR INR Reason for Visit PAF (paroxysmal atri al fibrillation) Essential (primary) hypertension Hypertriglyceridemia group home 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 PAF (paroxysmal atrial fibrillation) Hyperglycemia due to type 2 diabetes mellitus PAF (paroxysmal atrial fibrillation) PAF (paroxysmal atrial fibrillation) Essential (primary) hypertension Hypertriglyceridemia Chief Complaint 3 M FU INR A-FIB WITH RVR AM EKG F/up from hospital & A1c S/P [facility] 7-7-23 PER MMM INR INR INR Reason for Visit PAF (paroxysmal atri al fibrillation) Essential (primary) hypertension Hypertriglyceridemia 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 PAF (paroxysmal atrial fibrillation) Hyperglycemia due to type 2 diabetes mellitus PAF (paroxysmal atrial fibrillation) PAF (paroxysmal atrial fibrillation) Essential (primary) hypertension Hypertriglyceridemia Chief Complaint A-FIB WITH RVR AM EKG F/up from hospital & A1c S/P [facility] 7-7-23 PER MMM INR INR INR 3 M FU INR Reason for Visit terminologist current us e of anticoagulant PAF (paroxysmal atrial fibrillation) Hyperglycemia due to type 2 diabetes mellitus PAF (paroxysmal atrial fibrillation) PAF (paroxysmal atrial fibrillation) Essential (primary) hypertension Hypertriglyceridemia PAF (paroxysmal atrial fibrillation) Essential (primary) hypertension Hypertriglyceridemia Chief Complaint INR INR 3 M FU INR EKG Check per MMM INR Reason for Visit PAF (paroxysmal atri al fibrillation) Essential (primary) hypertension Hypertriglyceridemia Chief Complaint INR 3 M FU INR EKG Check per MMM INR INR Reason for Visit PAF (paroxysmal atri al fibrillation) Essential (primary) hypertension Hypertriglyceridemia Chief Complaint 3 M FU INR EKG Check per MMM INR INR INR Reason for Visit PAF (paroxysmal atri al fibrillation) Essential (primary) hypertension Hypertriglyceridemia Chief Complaint EKG Check per MMM INR INR INR INR Chief Complaint INR INR INR 6 M FU INR Reason for Visit PAF (paroxysmal atri al fibrillation) Essential (primary) hypertension Hypertriglyceridemia Chief Complaint INR INR INR 6 M FU INR medication refills Reason for Visit PAF (paroxysmal atri al fibrillation) Essential (primary) hypertension Hypertriglyceridemia Hyperglycemia due to type 2 diabetes mellitus Essential (primary) hypertension Hypertriglyceridemia Chief Complaint Admit Date INR July 28, 2024 2 :05pm 1 Y FU August 12, 2024 8:29am INT LABS August 12, 2024 9:09am INR August 28, 2024 12 :21pm INR October 17, 2024 10:55am INR November 07, 2024 12: 25pm Reason for Visit Admit Date Hyperglycemia due to type 2 diabetes [facility] August 12, 2024 8:29am PAF (paroxysmal atrial fibrillation) Dec ember 2023 8:29am Essential (primary) hypertension Decembe r 2023 8:29am Hypertriglyceridemia August 12, 2024 8:29am Chief Complaint Admit Date INR October 17, 2024 10:55am INR November 07, 2024 12: 25pm INR December 10, 2024 12: 12pm INR January 13, 2025 12:00 pm Chief Complaint Admit Date INR November 07, 2024 12: 25pm INR December 10, 2024 12: 12pm INR January 13, 2025 12:00 pm INR February 18, 2025 11:4 8am Chief Complaint Admit Date INR December 10, 2024 12: 12pm INR January 13, 2025 12:00 pm INR February 18, 2025 11:4 8am INR March 26, 2025 12:1 6pm Family History No Family History Records Found Relationship Condition Age at Onset Recorded Date/T vi Not Specified Lymphoma Unknown mother Malignant neoplasm Unknown father Hypertension Unknown brother Diabetes mellitus Unknown sister Irregular heart rhythm Unknown Advance Directives No Advanced Directives Records Found Advance Directive Response Recorded Date/ Time Living Will No March 09, 2015 8:53am Power of Sand Screener Operator No March 09 5 8:53am Advance Directive Response Recorded Date/ Time Living Will No March 09, 2015 7:53am Power of Sand Screener Operator No March 09 5 7:53am Advance Directive Response Recorded Date/ Time Living Will No March 01, 2023 1 0:31pm Power of Sand Screener Operator No March 01, 2023 10:31pm Advance Directive Response Recorded Date/ Time Living Will No March 02, 2023 3 :37am Power of Sand Screener Operator No March 02, 2023 3:37am Advance Directive Response Recorded Date/ Time Living Will No March 02, 2023 2 :37am Power of Sand Screener Operator No March 02, 2023 2:37am Advance Directive Response Recorded Date/ Time Living Will No March 02, 2023 3 :37am Do you have a Healthcare Power of Sand Screener Operator? No March 02, 2023 3:37am Living Will No October 25, 2024 8:42am Do you have a Healthcare Power of Sand Screener Operator? No October 25, 2024 8:42am Living Will No August 27 5:55am Do you have a Healthcare Power of Sand Screener Operator? No August 27, 2024 5:55am Living Will No September 26 10:32pm Do you have a Healthcare Power of Sand Screener Operator? No September 26, 2024 10:32pm Advance Directive Response Recorded Date/ Time Living Will No October 25, 2024 8:42am Do you have a Healthcare Power of Sand Screener Operator? No October 25, 2024 8:42am Living Will No December 24, 2024 10:17pm Do you have a Healthcare Power of Sand Screener Operator? No December 24, 2024 10:17pm Living Will No September 26 10:32pm Do you have a Healthcare Power of Sand Screener Operator? No September 26, 2024 10:32pm Living Will No November 24, 2024 10:55pm Do you have a Healthcare Power of Sand Screener Operator? No November 24, 2024 10:55pm Advance Directive Response Recorded Date/ Time Living Will No October 25, 2024 8:42am Do you have a Healthcare Power of Sand Screener Operator? No October 25, 2024 8:42am Living Will No December 24, 2024 10:17pm Do you have a Healthcare Power of Sand Screener Operator? No December 24, 2024 10:17pm Living Will No January 25, 2025 4 :45am Do you have a Healthcare Power of Sand Screener Operator? No January 25, 2025 4:45am Living Will No November 24, 2024 10:55pm Do you have a Healthcare Power of Sand Screener Operator? No November 24, 2024 10:55pm Advance Directive Response Recorded Date/ Time Living Will No December 24, 2024 10:17pm Do you have a Healthcare Power of Sand Screener Operator? No December 24, 2024 10:17pm Living Will No January 25, 2025 4 :45am Do you have a Healthcare Power of Sand Screener Operator? No January 25, 2025 4:45am Living Will No November 24, 2024 10:55pm Do you have a Healthcare Power of Sand Screener Operator? No November 24, 2024 10:55pm Summary Purpose Additional Source Comments Goals (unrecognized section and content) Goals may be documented in a n alternate sectionGoals may be documented in an alternate sectionGoals may be documented in an alternate sectionGoals may be documented in an alternate sectionGoals may be documented in an alternate sectionGoals may be documented in an alternate sectionGoals may be documented in an alternate sectionGoals may be documented in an alternate sectionGoals may be documented in an alternate sectionGoals may be documented in an alternate sectionGoals may be documented in an alternate sectionGoals may be documented in an alternate sectionGoals may be documented in an alternate sectionGoals may be documented in an alternate sectionGoals may be documented in an alternate sectionGoals may be documented in an alternate sectionGoals may be documented in an alternate sectionGoals may be documented in an alternate sectionGoals may be documented in an alternate sectionGoals may be documented in an alternate sectionGoals may be documented in an alternate sectionGoals may be documented in an alternate section Care Teams (unrecognized sec tion and content) Team Status: Active Member Role Status Dates Pamela Diego NP, HOSPITALITY RECRUITER-C Family Provider Active Pamela Diego NP HOSPITALITY RECRUITER-C Primary Care Provider Active Team Status: Inactive Member Role Status Dates Pamela Diego HOSPITALITY RECRUITER, HOSPITALITY RECRUITER-C Primary Care Provider, Referr ing Provider Active Greta Solitario PA, PA Attending Provider Active Team Status: Active Member Role Status Dates Pamela Diego HOSPITALITY RECRUITER, HOSPITALITY RECRUITER-C Primary Care Provider Active Dr. Benji Miller MD Attending Provider, Referring Provider, Other Provider Active Team Status: Inactive Member Role Status Dates Pamela Diego HOSPITALITY RECRUITER, HOSPITALITY RECRUITER-C Primary Care Provider Active Dr. Benji Miller MD Attending Provider Active Team Status: Inactive Member Role Status Dates Pamela Diego HOSPITALITY RECRUITER, HOSPITALITY RECRUITER-C Primary Care Provider Active Dr. Benji Miller MD Attending Provider, Referring Pro vider Active Team Status: Active Member Role Status Dates Pamela Diego HOSPITALITY RECRUITER, HOSPITALITY RECRUITER-C Primary Care Provider Active Dr. Benji Miller MD Attending Provider, Referring Pro vider Active Team Status: Inactive Member Role Status Dates Pamela Diego HOSPITALITY RECRUITER, HOSPITALITY RECRUITER-C Primary Care Provider Active Dr. Benji Miller MD Attending Provider, Referring Pro vider Active Greta Solitario PA, PA Other Provider Active Team Status: Active Member Role Status Dates Pamela Diego HOSPITALITY RECRUITER, HOSPITALITY RECRUITER-C Primary Care Provider Active Dr. Stephen Mireles DO Emergency Provider Active Dr. Juan J Brown MD Admit Provider, Attending Pro vider Active Team Status: Inactive Member Role Status Dates Pamela Diego HOSPITALITY RECRUITER, HOSPITALITY RECRUITER-C Primary Care Provider Active Dr. Stephen Mireles DO Emergency Provider Active Dr. Juan J Brown MD Admit Provider, Other Provide r Active Dr. Bogdan Hagen DO Attending Provider Active Team Status: Inactive Member Role Status Dates Pamela Diego HOSPITALITY RECRUITER, HOSPITALITY RECRUITER-C Primary Care Pr ovider, Attending Provider, Referring Provider Active Team Status: Inactive Member Role Status Dates Pamela Johnathon HOSPITALITY RECRUITER, HOSPITALITY RECRUITER-C Primary Care Provider, Attend ing Provider Active Team Status: Active Member Role Status Dates Pamela Johnathon HOSPITALITY RECRUITER, HOSPITALITY RECRUITER-C Primary Care Provider Active Team Status: Inactive Member Role Status Dates Pamela Diego HOSPITALITY RECRUITER, HOSPITALITY RECRUITER-C Primary Care Provider Active Start: July 28, 2024 End: July 28, 2024 Dr. Benji Miller MD Attending Provider Active S tart: July 28, 2024 End: July 28, 2024 Dr. Benji Miller MD Referring Provider Active S tart: July 28, 2024 End: July 28, 2024 Greta Solitario PA, PA Other Provider Active Start: July 28, 2024 End: July 28, 2024 Team Status: Inactive Member Role Status Dates Pamela Diego HOSPITALITY RECRUITER, HOSPITALITY RECRUITER-C Primary Care Provider Active Start: August 12, 2024 End: August 12, 2024 Pamela Diego HOSPITALITY RECRUITER, HOSPITALITY RECRUITER-C Referring Provider Active Start: August 12, 2024 End: August 12, 2024 Dr. Benji Miller MD Attending Provider Active S tart: August 12, 2024 End: August 12, 2024 Team Status: Inactive Member Role Status Dates Pamela Diego HOSPITALITY RECRUITER, HOSPITALITY RECRUITER-C Primary Care Provider Active Start: August 12, 2024 End: August 12, 2024 Dr. Benji Miller MD Attending Provider Active S tart: August 12, 2024 End: August 12, 2024 Dr. Benji Miller MD Referring Provider Active S tart: August 12, 2024 End: August 12, 2024 Team Status: Inactive Member Role Status Dates Pamela Diego HOSPITALITY RECRUITER, HOSPITALITY RECRUITER-C Primary Care Provider Active Start: August 28, 2024 End: August 28, 2024 Dr. Benji Miller MD Attending Provider Active S tart: August 28, 2024 End: August 28, 2024 Dr. Benji Miller MD Referring Provider Active S tart: August 28, 2024 End: August 28, 2024 Greta Solitario PA, PA Other Provider Active Start: August 28, 2024 End: August 28, 2024 Team Status: Inactive Member Role Status Dates Pamela Diego HOSPITALITY RECRUITER, HOSPITALITY RECRUITER-C Primary Care Provider Active Start: October 17, 2024 End: October 24, 2024 Dr. Benji Miller MD Attending Provider Active S tart: October 17, 2024 End: October 24, 2024 Dr. Benji Miller MD Referring Provider Active S tart: October 17, 2024 End: October 24, 2024 Greta Solitario PA, PA Other Provider Active Start: October 17, 2024 End: October 24, 2024 Team Status: Inactive Member Role Status Dates Pamela Diego HOSPITALITY RECRUITER, HOSPITALITY RECRUITER-C Primary Care Provider Active Start: November 07, 2024 End: November 07, 2024 Dr. Benji Miller MD Attending Provider Active S tart: November 07, 2024 End: November 07, 2024 Dr. Benji Miller MD Referring Provider Active S tart: November 07, 2024 End: November 07, 2024 Greta Solitario PA, PA Other Provider Active Start: November 07, 2024 End: November 07, 2024 Team Status: Inactive Member Role Status Dates Pamela Diego HOSPITALITY RECRUITER, HOSPITALITY RECRUITER-C Primary Care Provider Active Start: December 10, 2024 End: December 24, 2024 Dr. Benji Miller MD Attending Provider Active S tart: December 10, 2024 End: December 24, 2024 Dr. Benji Miller MD Referring Provider Active S tart: December 10, 2024 End: December 24, 2024 Greta Solitario PA, PA Other Provider Active Start: December 10, 2024 End: December 24, 2024 Team Status: Inactive Member Role Status Dates Pamela Diego HOSPITALITY RECRUITER, HOSPITALITY RECRUITER-C Primary Care Provider Active Start: January 13, 2025 End: January 13, 2025 Dr. Benji Miller MD Attending Provider Active S tart: January 13, 2025 End: January 13, 2025 Dr. Benji Miller MD Referring Provider Active S tart: January 13, 2025 End: January 13, 2025 Greta Solitario PA, PA Other Provider Active Start: January 13, 2025 End: January 13, 2025 Team Status: Active Member Role/Relationship Status Dates Pamela Diego HOSPITALITY RECRUITER, HOSPITALITY RECRUITER-C Primary Care Provider Active Team Status: Inactive Member Role/Relationship Status Dates Pamela Diego HOSPITALITY RECRUITER, HOSPITALITY RECRUITER-C Primary Care Provider Active Start: November 07, 2024 End: November 07, 2024 Dr. Benji Miller MD Attending Provider Active S tart: November 07, 2024 End: November 07, 2024 Dr. Benji Miller MD Referring Provider Active S tart: November 07, 2024 End: November 07, 2024 Greta Solitario PA, PA Other Provider Active Start: November 07, 2024 End: November 07, 2024 Team Status: Inactive Member Role/Relationship Status Dates Pamlea Diego HOSPITALITY RECRUITER, HOSPITALITY RECRUITER-C Primary Care Provider Active Start: December 10, 2024 End: December 24, 2024 Dr. Benji Miller MD Attending Provider Active S tart: December 10, 2024 End: December 24, 2024 Dr. Benji Miller MD Referring Provider Active S tart: December 10, 2024 End: December 24, 2024 Greta Solitario PA, PA Other Provider Active Start: December 10, 2024 End: December 24, 2024 Team Status: Inactive Member Role/Relationship Status Dates Pamela Diego HOSPITALITY RECRUITER, HOSPITALITY RECRUITER-C Primary Care Provider Active Start: January 13, 2025 End: January 13, 2025 Dr. Benji Miller MD Attending Provider Active S tart: January 13, 2025 End: January 13, 2025 Dr. Benji Miller MD Referring Provider Active S tart: January 13, 2025 End: January 13, 2025 Greta Solitario PA, PA Other Provider Active Start: January 13, 2025 End: January 13, 2025 Team Status: Inactive Member Role/Relationship Status Dates Pamela Diego HOSPITALITY RECRUITER, HOSPITALITY RECRUITER-C Primary Care Provider Active Start: February 18, 2025 End: February 18, 2025 Dr. Benji Miller MD Attending Provider Active S tart: February 18, 2025 End: February 18, 2025 Dr. Benji Miller MD Referring Provider Active S tart: February 18, 2025 End: February 18, 2025 Greta Solitario PA, PA Other Provider Active Start: February 18, 2025 End: February 18, 2025 Team Status: Inactive Member Role/Relationship Status Dates Pamela Diego HOSPITALITY RECRUITER, HOSPITALITY RECRUITER-C Primary Care Provider Active Start: December 10, 2024 End: December 24, 2024 Dr. Benji Miller MD Attending Provider Active S tart: December 10, 2024 End: December 24, 2024 Dr. Benji Miller MD Referring Provider Active S tart: December 10, 2024 End: December 24, 2024 Greta Solitario PA, PA Other Provider Active Start: December 10, 2024 End: December 24, 2024 Team Status: Inactive Member Role/Relationship Status Dates Pamela Diego HOSPITALITY RECRUITER, HOSPITALITY RECRUITER-C Primary Care Provider Active Start: January 13, 2025 End: January 13, 2025 Dr. Benji Miller MD Attending Provider Active S tart: January 13, 2025 End: January 13, 2025 Dr. Benji Miller MD Referring Provider Active S tart: January 13, 2025 End: January 13, 2025 Greta REID, PA Other Provider Active Start: January 13, 2025 End: January 13, 2025 Team Status: Inactive Member Role/Relationship Status Dates Pamela Diego NP, HOSPITALITY RECRUITER-C Primary Care Provider Active Start: February 18, 2025 End: February 18, 2025 Dr. Benji Miller MD Attending Provider Active S tart: February 18, 2025 End: February 18, 2025 Dr. Benji Mliler MD Referring Provider Active S tart: February 18, 2025 End: February 18, 2025 Greta REID, PA Other Provider Active Start: February 18, 2025 End: February 18, 2025 Team Status: Inactive Member Role/Relationship Status Dates Pamela Diego NP, HOSPITALITY RECRUITER-C Primary Care Provider Active Start: March 26, 2025 End: March 26, 2025 Dr. Benji Miller MD Attending Provider Active S tart: March 26, 2025 End: March 26, 2025 Dr. Benji Miller MD Referring Provider Active S tart: March 26, 2025 End: March 26, 2025 Greta REID, PA Other Provider Active Start: March 26, 2025 End: March 26, 2025 (unrecognized sect ion and content) No Status Records Found INFORMATION SOURCE (unrecogn ized section and content) DATE CREATED AUTHOR 03/28/2025 [facility] FOR RECORDS PERTAINING TO PATIENTS WHO ARE OR HAVE BEEN ENROLLED IN A CHEMICAL DEPENDENCY/SUBSTANCEABUSE PROGRAM, SOME INFORMATION MAY BE OMITTED. This clinical summary was aggregated from multiple sources. Caution should be exercised in using it in the provision of clinical care. This summary normalizes information from multiple sources, and as a consequence, information in this document may materially change the coding, format and clinical context of patient data. In addition, data may be omitted in some cases. CLINICAL DECISIONS SHOULD BE BASED ON THE PRIMARY CLINICAL RECORDS. [employer] provides no warranty or guarantee of the accuracy or completeness of information in this document.
[2025-04-10 00:18] LABS: Hematocrit 43.5 % (40-54); Hemoglobin 15.2 g/dL (13.0-16.5); Immature Granulocytes Count 0.030 X10^3/uL (0.0-0.0); Mean Corp Hgb Conc 34.9 g/dL (32-36); Mean Corpuscular Volume 88.4 fL (80-94); Mean Platelet Vol. 10.2 fl (6.2-12.0); NRBC Flagged by Analyzer 0 % (0-5); Platelet Count 236 K/mm3 (150-450); RBC Distribution Width CV 12.4 % (11.6-14.6); RBC Distribution Width SD 40.4 fl (35.1-43.9); Red Blood Count 4.92 M/mm3 (4.6-6.2); White Blood Count 8.5 K/mm3 (4.4-11.0)
[2025-04-10 00:43] LABS: AST(SGOT) 28 U/L (<=37); Alanine Aminotransfer ALT/SGPT 39 U/L (<=46); Albumin, Serum 4.4 g/dL (3.4-4.8); Alkaline Phosphatase 71 U/L (40-129); Anion Gap 14 (5-15); BUN 19 mg/dL (4-19); BUN/Creat Ratio 17.3 RATIO (10-20); Calcium,Total 9.4 mg/dL (7.6-11.0); Carbon Dioxide 20.4 mmol/L (21.0-32.0); Chloride 105 mmol/L (98-108); Cholesterol 188 mg/dL (<=200); Globulin 3.1 g/dL (2.2-4.2); Glucose 106 mg/dL (70-99); Low Density Lipoprotein Calc. 108 mg/dL; PSA,Total - Annual Screen 0.57 ng/mL (0.02-4.00); Potassium 4.6 mmol/L (3.3-5.1); Triglycerides 218 mg/dL; Very Low Density Lipoprotein 44 mg/dL (5-40); cholesterol:hdl ratio screen 5.14
== END | disposition home or self-care (01) ==
PROVIDERS: PCP Nurse Practitioner; Referring Provider Nurse Practitioner; Visit Provider Nurse Practitioner
DX: E11.65 Type 2 diabetes mellitus with hyperglycemia (principal); R00.2 Palpitations; I10 Essential (primary) hypertension; E78.1 Pure hyperglyceridemia; E66.9 Obesity, unspecified; Z12.5 Encounter for screening for malignant neoplasm of prostate
CPT/HCPCS: 80053; 80061; 84153; 85025; G0103

== ENCOUNTER 2025-04-23 14:50 | Outpatient (RCR) | payer BC, SELFPAY ==
[2025-04-23 15:13] LABS: INR Fingerstick 2.0
== END 2025-04-23 18:00 | disposition home or self-care (01) ==
LOC: LAB 14:50
PROVIDERS: PCP Nurse Practitioner; Referring Provider Internal Medicine Cardiovascular Disease; Visit Provider Internal Medicine Cardiovascular Disease
DX: I48.0 Paroxysmal atrial fibrillation (principal); Z79.01 Long term (current) use of anticoagulants
CPT/HCPCS: 36416; 85610

== ENCOUNTER 2025-05-26 10:14 | Outpatient (RCR) | payer BC, SELFPAY ==
[2025-05-26 10:26] LABS: INR Fingerstick 2.6
== END 2025-05-26 18:00 | disposition home or self-care (01) ==
LOC: LAB 10:14
PROVIDERS: PCP Nurse Practitioner; Referring Provider Internal Medicine Cardiovascular Disease; Visit Provider Internal Medicine Cardiovascular Disease
DX: I48.0 Paroxysmal atrial fibrillation (principal); Z79.01 Long term (current) use of anticoagulants
CPT/HCPCS: 36416; 85610

== ENCOUNTER 2025-06-26 09:34 | Outpatient (RCR) | payer BC, SELFPAY ==
[2025-06-26 09:44] LABS: INR Fingerstick 2.6
== END 2025-06-26 18:00 | disposition home or self-care (01) ==
LOC: LAB 09:34
PROVIDERS: PCP Nurse Practitioner; Referring Provider Internal Medicine Cardiovascular Disease; Visit Provider Internal Medicine Cardiovascular Disease
DX: I48.0 Paroxysmal atrial fibrillation (principal); Z79.01 Long term (current) use of anticoagulants
CPT/HCPCS: 36416; 85610

== ENCOUNTER 2025-08-03 13:06 | Outpatient (RCR) | payer BC, SELFPAY ==
[2025-08-03 13:13] LABS: INR Fingerstick 2.5
== END 2025-08-03 18:00 | disposition home or self-care (01) ==
LOC: LAB 13:06
PROVIDERS: PCP Nurse Practitioner; Referring Provider Internal Medicine Cardiovascular Disease; Visit Provider Internal Medicine Cardiovascular Disease
DX: I48.0 Paroxysmal atrial fibrillation (principal); Z79.01 Long term (current) use of anticoagulants
CPT/HCPCS: 36416; 85610